=== PATIENT | male | born 1935 | race Caucasian/White ===

== ENCOUNTER 2017-02-03 13:18 | Emergency (ER) | payer OTHER, MEDICAID ==
[~2017-02-03] VITALS: Ht 177.8 cm; Wt 90.0 kg
[~2017-02-03 13:18] MED LIST: AMLO10TA2 PO; ATOR40TA16 PO; HYDR12.56 PO; IPRASOL NEB; PANT40TA3 PO; PARO1TAB72 PO; PRED20 PO; QUIN1TAB11 PO; RANI150T PO
[2017-02-03 13:23] VITALS: BP 189/84; PULSE 65; RESP 18; TEMP 97.7; O2SAT 92
--- NOTE | 2017-02-03 13:26 | PD ---
Physical Exam Time Seen by Provider: 13:25 Narrative 82 y/o male presents for evaluation after a fall this AM. He is having pain in the right side of his chest. Tripped. Pain worse with inspiration. Abrasion to (R) wrist. VSS Seen at triage desk. Awaiting bed placement. Data Data Last Documented VS Vital Signs Date Time Temp Pulse Resp B/P Pulse Ox O2 Delivery O2 Flow Rate FiO2 02/03/17 13:23 97.7 65 18 189/84 92 MDM Medical Record Reviewed: Yes Supervised Visit with MONA: Karel Abdullahi February 03, 2017 13:26
--- NOTE | 2017-02-03 14:05 | PD ---
HPI Chief Complaint: Fall Time Seen by Provider: 13:40 Travel History International Travel<30 days: No Contact w/Intl Traveler<30days: No Traveled to known affect area: No History of Present Illness HPI Patient is an 82-year-old male presenting to the emergency evaluation of right chest wall pain. Patient sustained a mechanical fall at approximately 7 AM this morning in the parking lot, he tripped over a curb in the parking space. 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 The fall was witnessed by family members, there was no head injury , loss of consciousness. Patient took 2 Tylenol earlier today however over the course of the day he's had increasing pain that is worse with deep breathing. Patient denies any back pain, abdominal pain, leg pain, arm pain, neck pain or headache. Patient is not on any blood thinners. Patient is oxygen dependent. PFSH Past Medical History Hx Anticoagulant Therapy: Yes Blood Disorders: No Depression: Yes Cancer: No High Cholesterol: Yes Congestive Heart Failure: No COPD: Yes Cerebrovascular Accident: Yes (2 CVA) Coronary Artery Disease: No Diabetes: No Diminished Hearing: Yes ([place]) Endocrine: No GERD: Yes Hypertension: Yes Immunizations Current: Yes Myocardial Infarction: Yes Pneumonia: Yes Past Surgical History Abdominal Surgery: Yes (HERNIA REPAIR) Tonsillectomy: Yes Other Surgery: Yes (CYST REMOVED FROM HIP, "NAVEL RE-ADJUSTMENT") Social History Alcohol Use: No Tobacco Use: Yes (1-2 CIGARETTES/DAY) Substance Use: No Allergies-Medications (Allergen,Severity, Reaction): Coded Allergies: No Known Allergies (Verified , 02/03/17) Reported Meds & Prescriptions Reported Meds & Active Scripts Active Duoneb (Ipratropium-Albuterol Neb) 0.5-2.5 Mg/3 Ml Neb 1 Ampule NEB Q4HR NEB PRN Prednisone 20 Mg Tab 20 Mg PO DAILY Pantoprazole (Pantoprazole Sodium) 40 Mg Tab 40 Mg PO DAILY Reported Paroxetine (Paroxetine HCl) 20 Mg Tab 20 Mg PO DAILY Hydrochlorothiazide 12.5 Mg Tab 12.5 Mg PO DAILY Quinapril (Quinapril HCl) 10 Mg Tab 10 Mg PO DAILY Atorvastatin (Atorvastatin Calcium) 40 Mg Tab 40 Mg PO HS Ranitidine (Ranitidine HCl) 150 Mg Tab 150 Mg PO BID Amlodipine (Amlodipine Besylate) 10 Mg Tab 10 Mg PO DAILY Review of Systems Except as stated in HPI: all other systems reviewed are Neg HENT: No: Headaches, Neck Pain Cardiovascular: No: Chest Pain or Discomfort Respiratory: Positive: Shortness of Breath, Pleuritic Pain Gastrointestinal: No: Nausea, Abdominal Pain Musculoskeletal: Positive: Myalgias Skin: No Change in Pigmentation Neurologic: No: Weakness, Dizziness, Syncope, Focal Abnormalities, Headache, Change in Mentation Physical Exam Narrative GENERAL: Well-developed, well-nourished, alert elderly gentleman. Resting comfortably in no acute distress. SKIN: Focused skin assessment warm/dry. HEAD: Atraumatic. Normocephalic. EYES: Pupils equal and round. No scleral icterus. No injection or drainage. ENT: No nasal bleeding or discharge. Mucous membranes pink and moist. NECK: Trachea midline. No JVD. CARDIOVASCULAR: Regular rate and rhythm. No murmur appreciated. RESPIRATORY: No accessory muscle use. Clear to auscultation. Breath sounds equal bilaterally. GASTROINTESTINAL: Abdomen soft, non-tender, nondistended. Hepatic and splenic margins not palpable. MUSCULOSKELETAL: No obvious deformities. No clubbing. No cyanosis. No edema. Mild tenderness to palpation on right anterior chest wall just below right breast. No crepitus noted. NEUROLOGICAL: Awake and alert. No obvious cranial nerve deficits. Motor grossly within normal limits. Normal speech. PSYCHIATRIC: Appropriate mood and affect; insight and judgment normal. Data Data Last Documented VS Vital Signs Date Time Temp Pulse Resp B/P Pulse Ox O2 Delivery O2 Flow Rate FiO2 02/03/17 13:40 22 Nasal Cannula 2 02/03/17 13:23 97.7 65 189/84 92 Orders Chest, Pa & Lat (02/03/17 ) [facility] Medical Decision Making Medical Screen Exam Complete: Yes Emergency Medical Condition: Yes Interpretation(s) Vital Signs Date Time Temp Pulse Resp B/P Pulse Ox O2 Delivery O2 Flow Rate FiO2 02/03/17 13:40 22 Nasal Cannula 2 02/03/17 13:23 97.7 65 18 189/84 92 Differential Diagnosis Muscle strain versus fracture versus pneumothorax versus other Narrative Course Patient is an 82-year-old male presenting to the emergency room for evaluation of right anterior chest wall pain after sustaining a mechanical fall at approximately 7 AM this morning. Patient is neurologically intact, fall was witnessed by family members, there was no head injury or loss of consciousness. Patient's vital signs are stable. Chest x-ray ordered and pending. Chest X-ray shows no acute disease. Patient will be discharged home, he will be given a short course of oral pain medications. He is encouraged to follow-up with his primary doctor, he is encouraged to engage and deep breathing exercises. He is advised to return to emergency department for any new or worsening symptoms. Patient and family members verbalized understanding of these instructions. Patient is stable for discharge. Diagnosis Primary Impression: Anterior chest wall pain Additional Impression: Fall (on)(from) sidewalk curb, initial encounter Referrals: Primary Care Physician 2 days Patient Instructions: Chest Wall Pain (GEN), General Instructions Additional Instructions: Practice deep breathing exercises Take medications as needed and as directed Follow-up with your primary doctor Return to emergency department for any new or worsening symptoms Med/Other Pt SpecificInfo: Prescription(s) given Scripts Acetaminophen-Codeine (Tylenol-Codeine #3)300-30 mg Tab1 Tab PO Q6HR PRN (PAIN) #10 TAB Ref 0 Prov:Shelli Molina MD 02/03/17 Disposition: 01 DISCHARGE HOME Condition: Stable Shashank,Dahianacammy BERG February 03, 2017 14:05
--- NOTE | 2017-02-03 14:19 | RADRPT ---
EXAM DATE/TIME: 02/03/2017 14:02 [facility] COMPARISON: CHEST SINGLE AP, September 16, 2016, 19:30. CT PULMONARY ANGIOGRAM, September 17, 2016, 2:31. INDICATIONS : Right side rib pain after falling this morning. MEDICAL HISTORY : Hypertension. Cardiovascular disease Chronic obstructive pulmonary disease. CVA. SURGICAL HISTORY : None. ENCOUNTER: Initial ACUITY: 1 day PAIN SCORE: 7/10 LOCATION: Right chest FINDINGS: PA and lateral views of the chest show lingular scarring which is stable. Lungs are clear without inf iltrate or effusion. No pneumothoraces. Heart is normal in size. Scoliotic curvature involving the th oracic spine. Visualized bony structures are unremarkable otherwise. CONCLUSION: No acute cardio pulmonary disease. Javier Alfonso Jr., MD on February 03, 2017 at 14:16 Board Certified Radiologist. This report was verified electronically.
[2017-02-03] MEDS ORDERED: TYLETAB34 PO (14:33)
== END 2017-02-03 14:58 | disposition home or self-care (01) ==
LOC: NEPD 13:18
DX: R07.89 Other chest pain (principal); H91.90 Unspecified hearing loss, unspecified ear; I10 Essential (primary) hypertension; I25.2 Old myocardial infarction; W18.09XA Striking against other object with subsequent fall, initial encounter; Y92.481 Parking lot as the place of occurrence of the external cause; Z72.0 Tobacco use; Z79.01 Long term (current) use of anticoagulants
CPT/HCPCS: 71020

== ENCOUNTER 2017-02-16 21:23 | Emergency (ER) | payer OTHER, MEDICAID ==
[~2017-02-16] VITALS: Ht 177.8 cm; Wt 100.0 kg
[~2017-02-16 21:23] MED LIST changes: +TYLETAB34 PO
[2017-02-16 21:44] VITALS: O2SAT 98
[2017-02-16] MEDS ORDERED: SODIUM CHLORIDE 0.9% FLUSH 10 ML FLUSH IVF PRN (21:45)
--- NOTE | 2017-02-16 21:57 | RADRPT ---
EXAM DATE/TIME: 02/16/2017 21:50 [facility] COMPARISON: CHEST SINGLE AP, September 16, 2016, 19:30. INDICATIONS : Chest pain. MEDICAL HISTORY : None. SURGICAL HISTORY : None. ENCOUNTER: Sequela ACUITY: 3 weeks PAIN SCORE: 7/10 LOCATION: Right chest FINDINGS: A single view of the chest demonstrates the lungs to be symmetrically aerated without evidence of mas s, infiltrate or effusion. The cardiomediastinal contours are unremarkable. Osseous structures are intact. CONCLUSION: No acute disease. Edilberto Fletcher MD on February 16, 2017 at 21:54 Board Certified Radiologist. This report was verified electronically.
--- NOTE | 2017-02-16 22:10 | PD ---
HPI Chief Complaint: Respiratory Symptoms Time Seen by Provider: 22:08 Travel History International Travel<30 days: No Contact w/Intl Traveler<30days: No Traveled to known affect area: No History of Present Illness HPI 82-year-old male that presents to the ED for evaluation of shortness of breath. Patient came here by was for abolishment this. Per patient the sepsis around 6:00 today. He has a chronic history of COPD and uses oxygen at home. He continues to smoke every day. He states that he feels a chest pressure on his chest. He denies any recent travel. He does state that he had a recent injury to his right chest after a fall. No numbness, tilling, weakness. No abdominal pain. No nausea or vomiting. States that the pain of the chest is 5 out of 10 and is pressure-like. Does not radiate. States that he use an of urine Heller today with minimal relief. He has no allergies to medication. He states having some cough and runny nose today. No fevers chills or sweats. No sick contacts as far as he knows. PFSH Past Medical History Hx Anticoagulant Therapy: Yes Blood Disorders: No Depression: Yes Cancer: No High Cholesterol: Yes Congestive Heart Failure: No COPD: Yes Cerebrovascular Accident: Yes (2 CVA) Coronary Artery Disease: No Diabetes: No Diminished Hearing: Yes [place]) Endocrine: No GERD: Yes Hypertension: Yes Immunizations Current: Yes Myocardial Infarction: Yes Pneumonia: Yes Tetanus Vaccination: Unknown Influenza Vaccination: Yes Past Surgical History Abdominal Surgery: Yes (HERNIA REPAIR) Tonsillectomy: Yes Other Surgery: Yes (CYST REMOVED FROM HIP, "NAVEL RE-ADJUSTMENT") Social History Alcohol Use: No Tobacco Use: Yes (5-6 CIGS/DAY) Substance Use: No Allergies-Medications (Allergen,Severity, Reaction): Coded Allergies: No Known Allergies (Verified , 02/16/17) Reported Meds & Prescriptions Reported Meds & Active Scripts Active Duoneb (Ipratropium-Albuterol Neb) 0.5-2.5 Mg/3 Ml Neb 1 Ampule NEB Q4HR NEB PRN Prednisone 20 Mg Tab 20 Mg PO DAILY Pantoprazole (Pantoprazole Sodium) 40 Mg Tab 40 Mg PO DAILY Reported Paroxetine (Paroxetine HCl) 20 Mg Tab 20 Mg PO DAILY Hydrochlorothiazide 12.5 Mg Tab 12.5 Mg PO DAILY Quinapril (Quinapril HCl) 10 Mg Tab 10 Mg PO DAILY Atorvastatin (Atorvastatin Calcium) 40 Mg Tab 40 Mg PO HS Ranitidine (Ranitidine HCl) 150 Mg Tab 150 Mg PO BID Amlodipine (Amlodipine Besylate) 10 Mg Tab 10 Mg PO DAILY Review of Systems Except as stated in HPI: all other systems reviewed are Neg Physical Exam Narrative GENERAL: Well-nourished, well-developed patient in no apparent distress. SKIN: Warm and dry. HEAD: Atraumatic. Normocephalic. EYES: Pupils equal and round reactive to light and accommodation. No scleral icterus. No injection or drainage. ENT: No nasal bleeding or discharge. Mucous membranes pink and moist. TMs are clear with no sign of infection or perforation. No mastoid tenderness. Ear canals are intact bilaterally. No lymphadenopathy. Nostril mucosa is red and moist with clear mucus noted. No sinus tenderness to palpation noted. Tonsils are not enlarged or swollen. No ulvua Deviation. Tongue is midline. NECK: Trachea midline. No JVD. No meningeal signs noted CARDIOVASCULAR: Regular rate and rhythm. RESPIRATORY: No accessory muscle use. Clear to auscultation. Breath sounds equal bilaterally. GASTROINTESTINAL: Abdomen soft, non-tender, nondistended. Hepatic and splenic margins not palpable. MUSCULOSKELETAL: Extremities without clubbing, cyanosis, or edema. No obvious deformities. NEUROLOGICAL: Awake and alert. No obvious cranial nerve deficits. Motor grossly within normal limits. Five out of 5 muscle strength in the arms and legs. Normal speech. PSYCHIATRIC: Appropriate mood and affect; insight and judgment normal. Data Data Last Documented VS Vital Signs Date Time Temp Pulse Resp B/P Pulse Ox O2 Delivery O2 Flow Rate FiO2 02/16/17 22:25 98 Nasal Cannula 2.00 02/16/17 21:29 74 Orders Electrocardiogram (02/16/17 21:35) Basic Metabolic Panel (Bmp) (02/16/17 21:35) B-Type Natriuretic Peptide (02/16/17 21:35) Ckmb (Isoenzyme) Profile (02/16/17 21:35) Complete Blood Count With Diff (02/16/17 21:35) Magnesium (Mg) (02/16/17 21:35) Prothrombin Time / Inr (Pt) (02/16/17 21:35) Act Partial Throm Time (Ptt) (02/16/17 21:35) Troponin I (02/16/17 21:35) Chest, Single Ap (02/16/17 21:35) Ecg Monitoring (02/16/17 21:35) Iv Access Insert/Monitor (02/16/17 21:35) Oximetry (02/16/17 21:35) Oxygen Administration (02/16/17 21:35) Sodium Chloride 0.9% Flush (Ns Flush) (02/16/17 21:45) Methylprednisolone So Succ Inj (Solumedr (02/16/17 22:15) Albuterol-Ipratropium Neb (Duoneb Neb) (02/16/17 22:30) D-Dimer (02/16/17 22:34) Labs Laboratory Tests Test 02/16/17 21:40 White Blood Count 7.2 TH/MM3 Red Blood Count 4.48 MIL/MM3 Hemoglobin 12.8 GM/DL Hematocrit 38.0 % Mean Corpuscular Volume 84.9 FL Mean Corpuscular Hemoglobin 28.5 PG Mean Corpuscular Hemoglobin 33.6 % Concent Red Cell Distribution Width 14.4 % Platelet Count 259 TH/MM3 Mean Platelet Volume 6.7 FL Neutrophils (%) (Auto) 47.7 % Lymphocytes (%) (Auto) 39.8 % Monocytes (%) (Auto) 8.3 % Eosinophils (%) (Auto) 3.5 % Basophils (%) (Auto) 0.7 % Neutrophils # (Auto) 3.4 TH/MM3 Lymphocytes # (Auto) 2.9 TH/MM3 Monocytes # (Auto) 0.6 TH/MM3 Eosinophils # (Auto) 0.3 TH/MM3 Basophils # (Auto) 0.1 TH/MM3 CBC Comment DIFF FINAL Differential Comment Prothrombin Time 10.7 SEC Prothromb Time International 1.0 RATIO Ratio Activated Partial 24.6 SEC Thromboplast Time Sodium Level 141 MEQ/L Potassium Level 4.1 MEQ/L Chloride Level 102 MEQ/L Carbon Dioxide Level 29.9 MEQ/L Anion Gap 9 MEQ/L Blood Urea Nitrogen 20 MG/DL Creatinine 1.68 MG/DL Estimat Glomerular Filtration 39 ML/MIN Rate Random Glucose 104 MG/DL Calcium Level 9.4 MG/DL Magnesium Level 2.4 MG/DL Total Creatine Kinase 77 U/L Troponin I LESS THAN 0.02 NG/ML MDM Medical Decision Making Medical Screen Exam Complete: Yes Emergency Medical Condition: Yes Medical Record Reviewed: Yes Differential Diagnosis COPD exacerbation versus shortness of breath versus dyspnea versus chest pain versus ACS Narrative Course 82-year-old male that presents to the ED for evaluation of shortness of breath. Patient was properly examined and was found to have signs and symptoms consistent appears to be possible super exacerbation with chest pain. This time I recommend labs and imaging. Labs and imaging still pending. Case will be signed out to my attending pending disposition. Sourav Tovar February 16, 2017 22:10
[2017-02-16 22:12] LABS: AUTOMATED NEUTROPHIL # 3.4 TH/MM3 (1.8-7.7); BASOPHIL # 0.1 TH/MM3 (0-0.2); BASOPHIL % 0.7 % (0.0-2.0); EOSINOPHIL # 0.3 TH/MM3 (0-0.4); EOSINOPHIL % 3.5 % (0.0-4.0); HEMO FLAGS DIFF FINAL; LYMPH % 39.8 % (9.0-44.0); LYMPHOCYTE # 2.9 TH/MM3 (1.0-4.8); MEAN CELL VOLUME 84.9 FL (80.0-100.0); MEAN CORPUSCULAR HEMOGLOBIN 28.5 PG (27.0-34.0); MEAN CORPUSCULAR HGB CONC 33.6 % (32.0-36.0); MONO % 8.3 % (0.0-8.0); NEUT % 47.7 % (16.0-70.0); PLATELET COUNT 259 TH/MM3 (150-450); RED BLOOD COUNT 4.48 MIL/MM3 (4.50-5.90); RED CELL DISTRIBUTION WIDTH 14.4 % (11.6-17.2); WHITE BLOOD COUNT 7.2 TH/MM3 (4.0-11.0)
--- NOTE | 2017-02-16 22:14 | PD ---
Physical Exam Narrative General: The patient is a well-developed well-nourished male in no acute distress. Head and Neck exam: Head is normocephalic atraumatic. Eyes: EOMI, pupils are equal round and reactive to light. Nose: Midline septum with pink mucous membranes Mouth: Dentition unremarkable. Moist mucus membranes. Posterior oropharynx is not erythematous. No tonsillar hypertrophy. Uvula midline. Airway patent. Neck: No palpable lymphadenopathy. No nuchal rigidity. No thyromegaly. Cardiovascular: Regular rate and rhythm without murmurs, gallops, or rubs. Lungs: Clear to auscultation bilaterally. No wheezes, rhonchi, or rales. Abdomen: Soft, without tenderness to palpation in all 4 quadrants of the abdomen. No guarding, rebound, or rigidity. Normal bowel sounds are audible. No tenderness on palpation of McBurney's point. Extremities: No clubbing, cyanosis, or edema. No calf tenderness on palpation. Neurologic Exam: Grossly nonfocal. Skin Exam: No rash noted. Intact skin that is warm and dry. Data Data Last Documented VS Vital Signs Date Time Temp Pulse Resp B/P Pulse Ox O2 Delivery O2 Flow Rate FiO2 02/17/17 00:06 74 20 174/83 98 Nasal Cannula 2 Orders Electrocardiogram (02/16/17 21:35) Basic Metabolic Panel (Bmp) (02/16/17 21:35) B-Type Natriuretic Peptide (02/16/17 21:35) Ckmb (Isoenzyme) Profile (02/16/17 21:35) Complete Blood Count With Diff (02/16/17 21:35) Magnesium (Mg) (02/16/17 21:35) Prothrombin Time / Inr (Pt) (02/16/17 21:35) Act Partial Throm Time (Ptt) (02/16/17 21:35) Troponin I (02/16/17 21:35) Chest, Single Ap (02/16/17 21:35) Ecg Monitoring (02/16/17 21:35) Iv Access Insert/Monitor (02/16/17 21:35) Oximetry (02/16/17 21:35) Oxygen Administration (02/16/17 21:35) Sodium Chloride 0.9% Flush (Ns Flush) (02/16/17 21:45) Methylprednisolone So Succ Inj (Solumedr (02/16/17 22:15) Albuterol-Ipratropium Neb (Duoneb Neb) (02/16/17 22:30) D-Dimer (02/16/17 22:34) Sodium Chlorid 0.9% 500 Ml Inj (Ns 500 M (02/17/17 00:00) Ct Pulmonary Angiogram (02/17/17 ) Iohexol 350 Inj (Omnipaque 350 Inj) (02/17/17 00:59) Labs Laboratory Tests Test 02/16/17 21:40 White Blood Count 7.2 TH/MM3 Red Blood Count 4.48 MIL/MM3 Hemoglobin 12.8 GM/DL Hematocrit 38.0 % Mean Corpuscular Volume 84.9 FL Mean Corpuscular Hemoglobin 28.5 PG Mean Corpuscular Hemoglobin 33.6 % Concent Red Cell Distribution Width 14.4 % Platelet Count 259 TH/MM3 Mean Platelet Volume 6.7 FL Neutrophils (%) (Auto) 47.7 % Lymphocytes (%) (Auto) 39.8 % Monocytes (%) (Auto) 8.3 % Eosinophils (%) (Auto) 3.5 % Basophils (%) (Auto) 0.7 % Neutrophils # (Auto) 3.4 TH/MM3 Lymphocytes # (Auto) 2.9 TH/MM3 Monocytes # (Auto) 0.6 TH/MM3 Eosinophils # (Auto) 0.3 TH/MM3 Basophils # (Auto) 0.1 TH/MM3 CBC Comment DIFF FINAL Differential Comment Prothrombin Time 10.7 SEC Prothromb Time International 1.0 RATIO Ratio Activated Partial 24.6 SEC Thromboplast Time D-Dimer Quantitative (PE/DVT) 1.44 MG/L FEU Sodium Level 141 MEQ/L Potassium Level 4.1 MEQ/L Chloride Level 102 MEQ/L Carbon Dioxide Level 29.9 MEQ/L Anion Gap 9 MEQ/L Blood Urea Nitrogen 20 MG/DL Creatinine 1.68 MG/DL Estimat Glomerular Filtration 39 ML/MIN Rate Random Glucose 104 MG/DL Calcium Level 9.4 MG/DL Magnesium Level 2.4 MG/DL Total Creatine Kinase 77 U/L Troponin I LESS THAN 0.02 NG/ML B-Type Natriuretic Peptide 52 PG/ML [facility] Medical Record Reviewed: Yes Supervised Visit with MONA: Yes Interpretation(s) Last Impressions Chest X-Ray 02/16/172134 Signed Impressions: Service Date/Time: Thursday, February 16, 2017 21:50 - CONCLUSION: No acute disease. Edilberto Fletcher MD Narrative Course I, Dr. Rodrigez, have reviewed the advance practice practitioner's documentation and am in agreement, met with the patient face to face, made the diagnosis, and the medical decision making was done by me. The patient was initially seen by Evelio. Please see his complete history and physical. *My assessment and Findings: The patient is an 82-year-old male who presents to [place] with a history of shortness of breath and prior history of COPD with continued tobacco use. The patient was initially evaluated by the physician respiratory care assistant. The patient was noted on examination a have expiratory wheezes audible. Chest x-ray was done. Laboratory studies were ordered. During the course of the patients emergency department visit, the patients history, examination, and differential diagnosis were reviewed with the patient. The patient had IV access obtained and blood work sent for analysis. The patient was initially provided DuoNeb 1, Solu-Medrol 125 mg IV. The patients laboratory studies were reviewed and remarkable for a white count of 7.2, hemoglobin 12.8, platelets 259 with 8.3 monocytes, basic metabolic profile is remarkable for a BUN of 20, creatinine 1.68, CPK 77, troponin I less than 0.02, BNP 52. The patient was given a normal saline 500 mL bolus 1. PT 10.7, PTT 24.6, d-dimer 1.44. CTA to rule out PE was ordered. Radiology studies were reviewed and remarkable for a chest x-ray that showed no acute abnormality. CTA to rule out PE showed evidence of mild underlying emphysema, mild scarring, no evidence of pulmonary embolism. The patient on examination was feeling improved. The patient has albuterol solution for his nebulizer machine at home. He also has when necessary nasal cannula O2 at home. The patient will be sent home with a prescription for doxycycline for bronchitis. The patient was given a Medrol Dosepak taper. The patient was encouraged to quit smoking. The patient reports that he has a follow-up appointment rescheduled with his primary care physician, Dr. Best, for Thursday. The patient is resting comfortably and feels better, is alert and in no distress. The patients results and examination findings were discussed with the patient. The repeat examination is unremarkable and benign. The history, exam, diagnostic testing, and current condition do not suggest any significant pathology to warrant further testing, continued ED treatment, admission, or surgical evaluation at this point. The vital signs have been stable. The patient does not have uncontrollable pain, intractable vomiting, or other significant symptoms. The patient's condition is stable and appropriate for discharge. The patient will pursue further outpatient evaluation with a primary care physician or other designated or consulting physician as indicated in the discharge instructions. The patient expressed understanding and was agreeable with this plan. Diagnosis Primary Impression: COPD exacerbation Additional Impression: Bronchitis Referrals: Primary Care Physician 2 days Patient Instructions: Acute Bronchitis (ED), COPD (Chronic Obstructive Pulmonary Disease) (ED), General Instructions Med/Other Pt SpecificInfo: Prescription(s) given Scripts Methylprednisolone Dosepak (Medrol Dosepak)4 Mg Dspk4 Mg PO DIRECTED #1 DSPK Ref 0 Per Pharmacist direction Prov:Bibi Rodrigez MD 02/17/17 Doxycycline Hyclate 100 Mg Evd136 Mg PO BID #20 CAP Ref 0 Prov:Bibi Rodrigez MD 02/17/17 Disposition: 01 DISCHARGE HOME Condition: Stable Bibi Rodrigez MD February 16, 2017 22:14
[2017-02-16] MEDS ORDERED: methylPREDNISolone SOD SUCC 125 MG/2 ML VIAL IV PUSH ONE (22:15)
[2017-02-16 22:25] VITALS: O2SAT 98
[2017-02-16 22:30] LABS: APTT (PATIENT) 24.6 SEC (24.3-30.1); PROTHROMBIN TIME - PATIENT 10.7 SEC (9.8-11.6)
[2017-02-16] MEDS ORDERED: RESP: ALBUTEROL 2.5 MG/IPRATROPIUM 0.5 MG NEB (SCH) INH ONE (22:30)
[2017-02-16 22:35] LABS: ANION GAP 9 MEQ/L (5-15); BICARBONATE 29.9 MEQ/L (21.0-32.0); BLOOD UREA NITROGEN 20 MG/DL (7-18); CHLORIDE 102 MEQ/L (98-107); GLOMERULAR FILTRATION RATE 39 ML/MIN (>89); MAGNESIUM 2.4 MG/DL (1.5-2.5); POTASSIUM 4.1 MEQ/L (3.5-5.1); SODIUM (NA) 141 MEQ/L (136-145)
[2017-02-16 22:42] LABS: CREATINE KINASE 77 U/L (39-308)
[2017-02-17] MEDS ORDERED: SODIUM CHLORID 0.9% 500 ML INJ 500 ML IV ONE
[2017-02-17 00:06] VITALS: BP 174/83; PULSE 74; RESP 20; O2SAT 98
[2017-02-17] MEDS ORDERED: IOHEXOL 350 MG/ML 10 ML VIAL (for RAD DIAG) IV ONE (00:59)
--- NOTE | 2017-02-17 01:14 | RADRPT ---
EXAM DATE/TIME: 02/17/2017 00:58 [facility] COMPARISON: CT PULMONARY ANGIOGRAM, September 17, 2016, 2:31. INDICATIONS : Chest pain with shortness of breath. IV CONTRAST: 75 cc Omnipaque 350 (iohexol) IV RADIATION DOSE: 23.41 CTDIvol (mGy) MEDICAL HISTORY : Cardiovascular disease. Hypertension. Chronic obstructive pulmonary disease.GERD SURGICAL HISTORY : Hernia ENCOUNTER: Initial ACUITY: 1 day PAIN SCALE: 6/10 LOCATION: Bilateral chest TECHNIQUE: Volumetric scanning of the chest was performed using a pulmonary embolism protocol MIP images were re constructed. Using automated exposure control and adjustment of the mA and/or kV according to patien t size, radiation dose was kept as low as reasonably achievable to obtain optimal diagnostic quality images. FINDINGS: PULMONARY ARTERIES: No filling defects are seen in the pulmonary arteries through the segmental level. LUNGS: There is no consolidation or pneumothorax . No concerning pulmonary nodule is visualized. Underlying emphysema is again noted. There is mild scarring greatest at the lung bases. PLEURAE: There is no pleural thickening or pleural effusion. MEDIASTINUM: There is good visualization of the great vessels of the middle mediastinum. No evidence of mediastin al or hilar adenopathy/mass. MUSCULOSKELETAL: Within normal limits for patient age. MISCELLANEOUS: The visualized upper abdominal organs demonstrate no acute abnormality. CONCLUSION: 1. Mild underlying emphysema. Mild scarring. 2. No evidence of pulmonary embolism. Jose Sheehan MD on February 17, 2017 at 1:10 Board Certified Radiologist. This report was verified electronically.
[2017-02-17] MEDS ORDERED: DOXY100C PO (01:26)
[2017-02-17] MEDS ORDERED: MEDR4PAK PO (01:26)
--- NOTE | 2017-02-17 14:37 | EKG ---
Date Performed: 02/16/2017 Time Performed: 21:32:03 PTAGE: 82 years EKG: Sinus rhythm RIGHT BUNDLE BRANCH BLOCK Since previous tracing, no significant change noted ABNORMAL ECG PREVIOUS TRACING : 09/17/2016 06.48 DOCTOR: Rufino Castro Interpretating Date/Time 02/17/2017 14:35:50
== END 2017-02-17 02:11 | disposition home or self-care (01) ==
LOC: NEPE 21:23
DX: J44.1 Chronic obstructive pulmonary disease with (acute) exacerbation (principal); J40 Bronchitis, not specified as acute or chronic; I10 Essential (primary) hypertension; I25.2 Old myocardial infarction; Z72.0 Tobacco use; Z86.73 Personal history of transient ischemic attack (TIA), and cerebral infarction without residual deficits
CPT/HCPCS: 71010; 71275; 80048; 82550; 83735; 83880; 84484; 85025; 85379; 85610; 85730; 93005; 94664; 96361; 96374; 99284; J2930; J7040; Q9967

== ENCOUNTER 2017-06-18 19:58 | Emergency (ER) | payer OTHER, MEDICAID ==
[~2017-06-18] VITALS: Ht 182.9 cm; Wt 93.0 kg
[~2017-06-18 19:58] MED LIST changes: +DOXY100C PO; +MEDR4PAK PO; -TYLETAB34 PO
[2017-06-18 20:19] VITALS: BP 152/75; PULSE 50; RESP 19; TEMP 98.5; O2SAT 99
[2017-06-18] MEDS ORDERED: ACCU10TA2 PO (20:29)
[2017-06-18] MEDS ORDERED: ASPIRIN 81 MG CHEW TAB PO ONE (20:45)
[2017-06-18] MEDS ORDERED: SODIUM CHLORIDE 0.9% FLUSH 10 ML FLUSH IVF PRN (20:45)
[2017-06-18] MEDS ORDERED: RESP: ALBUTEROL 2.5 MG/IPRATROPIUM 0.5 MG NEB (SCH) NEB ONE (20:45)
--- NOTE | 2017-06-18 21:06 | RADRPT ---
EXAM DATE/TIME: 06/18/2017 20:54 [facility] COMPARISON: CHEST SINGLE AP, February 16, 2017, 21:50. INDICATIONS : Chest pain. MEDICAL HISTORY : Cardiovascular disease. Hypertension. Chronic obstructive pulmonary disease.GERD. SURGICAL HISTORY : Hernia repair. ENCOUNTER: Initial ACUITY: 1 day PAIN SCORE: 3/10 LOCATION: Bilateral chest FINDINGS: A single view of the chest demonstrates the lungs to be symmetrically aerated without evidence of mas s, infiltrate or effusion. The cardiomediastinal contours are unremarkable. Osseous structures are intact. CONCLUSION: No evidence of acute cardiopulmonary disease. Mook Mcclellan MD on June 18, 2017 at 21:04 Board Certified Radiologist. This report was verified electronically.
[2017-06-18 21:13] LABS: AUTOMATED NEUTROPHIL # 6.1 TH/MM3 (1.8-7.7); BASOPHIL % 0.2 % (0.0-2.0); EOSINOPHIL # 0.3 TH/MM3 (0-0.4); EOSINOPHIL % 3.2 % (0.0-4.0); HEMATOCRIT 37.1 % (39.0-51.0); HEMO FLAGS DIFF FINAL; LYMPH % 19.5 % (9.0-44.0); LYMPHOCYTE # 1.7 TH/MM3 (1.0-4.8); MEAN CELL VOLUME 86.2 FL (80.0-100.0); MEAN CORPUSCULAR HEMOGLOBIN 29.1 PG (27.0-34.0); MEAN CORPUSCULAR HGB CONC 33.8 % (32.0-36.0); MONO % 8.4 % (0.0-8.0); NEUT % 68.7 % (16.0-70.0); PLATELET COUNT 202 TH/MM3 (150-450); WHITE BLOOD COUNT 8.9 TH/MM3 (4.0-11.0)
--- NOTE | 2017-06-18 21:22 | PD ---
HPI Chief Complaint: Chest Pain Time Seen by Provider: 20:24 Travel History International Travel<30 days: No Contact w/Intl Traveler<30days: No Traveled to known affect area: No History of Present Illness HPI Patient is 82-year-old male presents emergency department for evaluation of chest pain fairly atypical. His chief complaint is actually that he's been belching a lot. He is also been having some shortness of breath but has a history of chronic COPD is on oxygen at home. According to his and daughter the patient recently went to [place] and had been sick and there was some cough and congestion and then came home and was slightly worse. States he does have a heart history but has not had a stress test recently. Followed by Dr. Foss. No history of fever, no hemoptysis no sputum production no abdominal pain no nausea vomiting. Symptoms for greater than a week. PFSH Past Medical History Hx Anticoagulant Therapy: Yes Blood Disorders: No Depression: Yes Cancer: No Cardiac Catheterization: Yes (2006) High Cholesterol: Yes Congestive Heart Failure: No COPD: Yes Cerebrovascular Accident: Yes (2 CVA) Coronary Artery Disease: No Diabetes: No Diminished Hearing: Yes ([place]) Endocrine: No GERD: Yes Hypertension: Yes Immunizations Current: Yes Myocardial Infarction: Yes (X2) Pneumonia: Yes Tetanus Vaccination: Unknown Past Surgical History Abdominal Surgery: Yes (HERNIA REPAIR) Tonsillectomy: Yes Other Surgery: Yes (CYST REMOVED FROM HIP, "NAVEL RE-ADJUSTMENT") Social History Alcohol Use: No Tobacco Use: Yes (5-6 CIGS/DAY) Substance Use: No Allergies-Medications (Allergen,Severity, Reaction): Coded Allergies: No Known Allergies (Verified , 06/18/17) Reported Meds & Prescriptions Reported Meds & Active Scripts Active Medrol Dosepak (Methylprednisolone) 4 Mg Dspk 4 Mg PO DIRECTED Per Pharmacist direction Duoneb (Ipratropium-Albuterol Neb) 0.5-2.5 Mg/3 Ml Neb 1 Ampule NEB Q4HR NEB PRN Prednisone 20 Mg Tab 20 Mg PO DAILY Pantoprazole (Pantoprazole Sodium) 40 Mg Tab 40 Mg PO DAILY Reported Accupril (Quinapril HCl) 10 Mg Tab 10 Mg PO BID Paroxetine (Paroxetine HCl) 20 Mg Tab 20 Mg PO DAILY Hydrochlorothiazide 12.5 Mg Tab 12.5 Mg PO DAILY Atorvastatin (Atorvastatin Calcium) 40 Mg Tab 40 Mg PO HS Ranitidine (Ranitidine HCl) 150 Mg Tab 150 Mg PO BID Amlodipine (Amlodipine Besylate) 10 Mg Tab 10 Mg PO DAILY Review of Systems Except as stated in HPI: all other systems reviewed are Neg Physical Exam Narrative GENERAL: Well-developed well-nourished, elderly male in no obvious distress. SKIN: Focused skin assessment warm/dry. HEAD: Atraumatic. Normocephalic. EYES: Pupils equal and round. No scleral icterus. No injection or drainage. ENT: No nasal bleeding or discharge. Mucous membranes pink and moist. NECK: Trachea midline. No JVD. CARDIOVASCULAR: Regular rate and rhythm. No murmur appreciated. No murmurs gallops or rubs. RESPIRATORY: No accessory muscle use. Clear to auscultation. Breath sounds equal bilaterally. GASTROINTESTINAL: Abdomen soft, non-tender, nondistended. Hepatic and splenic margins not palpable. MUSCULOSKELETAL: No obvious deformities. No clubbing. No cyanosis. No edema. NEUROLOGICAL: Awake and alert. No obvious cranial nerve deficits. Motor grossly within normal limits. Normal speech. PSYCHIATRIC: Appropriate mood and affect; insight and judgment normal. Data Data Last Documented VS Vital Signs Date Time Temp Pulse Resp B/P (MAP) Pulse Ox O2 Delivery O2 Flow Rate FiO2 06/18/17 21:30 98 Nasal Cannula 4.00 06/18/17 20:30 54 19 06/18/17 20:19 98.5 152/75 (100) Orders Orders Electrocardiogram (06/18/17 20:31) Ckmb (Isoenzyme) Profile (06/18/17 20:31) Complete Blood Count With Diff (06/18/17 20:31) Comprehensive Metabolic Panel (06/18/17 20:31) Magnesium (Mg) (06/18/17 20:31) Prothrombin Time / Inr (Pt) (06/18/17 20:31) Act Partial Throm Time (Ptt) (06/18/17 20:31) Troponin I (06/18/17 20:31) Chest, Single Ap (06/18/17 20:31) Ecg Monitoring (06/18/17 20:31) Iv Access Insert/Monitor (06/18/17 20:31) Oximetry (06/18/17 20:31) Oxygen Administration (06/18/17 20:31) Aspirin Chew (Aspirin Chew) (06/18/17 20:45) Sodium Chloride 0.9% Flush (Ns Flush) (06/18/17 20:45) Albuterol-Ipratropium Neb (Duoneb Neb) (06/18/17 20:45) Ct Pulmonary Angiogram (06/18/17 ) Iodixanol 320 Inj (Rad Ct) (Visipaque 32 (06/18/17 22:21) Labs Laboratory Tests Test 06/18/17 20:40 White Blood Count 8.9 TH/MM3 Red Blood Count 4.30 MIL/MM3 Hemoglobin 12.5 GM/DL Hematocrit 37.1 % Mean Corpuscular Volume 86.2 FL Mean Corpuscular Hemoglobin 29.1 PG Mean Corpuscular Hemoglobin Concent 33.8 % Red Cell Distribution Width 14.0 % Platelet Count 202 TH/MM3 Mean Platelet Volume 6.9 FL Neutrophils (%) (Auto) 68.7 % Lymphocytes (%) (Auto) 19.5 % Monocytes (%) (Auto) 8.4 % Eosinophils (%) (Auto) 3.2 % Basophils (%) (Auto) 0.2 % Neutrophils # (Auto) 6.1 TH/MM3 Lymphocytes # (Auto) 1.7 TH/MM3 Monocytes # (Auto) 0.7 TH/MM3 Eosinophils # (Auto) 0.3 TH/MM3 Basophils # (Auto) 0.0 TH/MM3 CBC Comment DIFF FINAL Differential Comment Prothrombin Time 10.1 SEC Prothromb Time International Ratio 0.9 RATIO Activated Partial Thromboplast Time 19.0 SEC Blood Urea Nitrogen 40 MG/DL Creatinine 1.80 MG/DL Random Glucose 100 MG/DL Total Protein 5.8 GM/DL Albumin 3.1 GM/DL Calcium Level 8.9 MG/DL Magnesium Level 2.3 MG/DL Alkaline Phosphatase 81 U/L Aspartate Amino Transf (AST/SGOT) 31 U/L Alanine Aminotransferase (ALT/SGPT) 43 U/L Total Bilirubin 0.3 MG/DL Sodium Level 139 MEQ/L Potassium Level 4.1 MEQ/L Chloride Level 102 MEQ/L Carbon Dioxide Level 30.0 MEQ/L Anion Gap 7 MEQ/L Estimat Glomerular Filtration Rate 36 ML/MIN Total Creatine Kinase 56 U/L Troponin I 0.02 NG/ML MDM Medical Decision Making Medical Screen Exam Complete: Yes Emergency Medical Condition: Yes Differential Diagnosis ACS seems unlikely, reflux, belching, PE, pneumonia, COPD exacerbation Narrative Course patient roomed in emergency department, he appears well in no distress. He states that the pain worsens when he lies on his left side and that the belching is worse when he is on his left side. Initial workup shows a minimal elevation in creatinine to 1.8 which is slightly above his baseline, troponin negative, EKG is nonischemic. CT PE protocol negative. Discussed with the patient that he is highly atypical for ACS but cannot completely exclude coronary artery disease this time given his age and risk factors. I had suggested that he stay for a stress test that he would like to go home and follow-up with his primary care physician Dr. Best. He states he has an appointment later this month but if he called Dr. Dodson he's pretty sure he get in tomorrow and see her. At this time I think this is reasonable. Discussed with him return to ED criteria symptomatic management home. Diagnosis Primary Impression: Chest pain Disposition: 01 DISCHARGE HOME Condition: Stable Wade Odell MD Jun 18, 2017 21:22
[2017-06-18 21:30] VITALS: O2SAT 98
[2017-06-18 21:33] LABS: INTERNATIONAL NORMALIZED RATIO 0.9 RATIO; PROTHROMBIN TIME - PATIENT 10.1 SEC (9.8-11.6)
[2017-06-18 21:41] LABS: ANION GAP 7 MEQ/L (5-15); AST (GOT) 31 U/L (15-37); BLOOD UREA NITROGEN 40 MG/DL (7-18); CHLORIDE 102 MEQ/L (98-107); GLOMERULAR FILTRATION RATE 36 ML/MIN (>89); MAGNESIUM 2.3 MG/DL (1.5-2.5); POTASSIUM 4.1 MEQ/L (3.5-5.1); SODIUM (NA) 139 MEQ/L (136-145)
[2017-06-18 21:44] LABS: ALKALINE PHOSPHATASE 81 U/L (45-117); ALT (GPT) 43 U/L (12-78); TOTAL BILIRUBIN ADULT 0.3 MG/DL (0.2-1.0)
[2017-06-18 21:46] LABS: CREATINE KINASE 56 U/L (39-308)
[2017-06-18] MEDS ORDERED: IODIXANOL 320 MG/ML 10 ML VIAL (for Rad CT) IV ONE (22:21)
--- NOTE | 2017-06-18 22:55 | RADRPT ---
EXAM DATE/TIME: 06/18/2017 22:21 [facility] COMPARISON: CT PULMONARY ANGIOGRAM, February 17, 2017, 0:58. INDICATIONS : Chest pain. IV CONTRAST: 50 cc Visipaque (iodixanol) IV RADIATION DOSE: 12.03 CTDIvol (mGy) MEDICAL HISTORY : Hypertension. Chronic obstructive pulmonary disease. SURGICAL HISTORY : Cardiac catheterization ENCOUNTER: Initial ACUITY: 1 day PAIN SCALE: 5/10 LOCATION: chest TECHNIQUE: Volumetric scanning of the chest was performed using a pulmonary embolism protocol MIP images were re constructed. Using automated exposure control and adjustment of the mA and/or kV according to patien t size, radiation dose was kept as low as reasonably achievable to obtain optimal diagnostic quality images. DICOM format image data is available electronically for review and comparison. Follow-up recommendations for detected pulmonary nodules are based at a minimum on nodule size and pa tient risk factors according to Fleischner Society Guidelines. FINDINGS: There is no pulmonary embolus. Mild emphysema and trace atelectasis of the bases. No pleural effusion or pneumothorax. Left ventricular hypertrophy again noted. There is coronary artery calcification, most conspicuous of the left anterior descending and left circumflex. No pericardial effusion. No adenopathy. CONCLUSION: 1. No pulmonary embolus. 2. Trace bibasilar atelectasis. 3. Coronary artery calcification. 4. Mild emphysema. Mook Mcclellan MD on June 18, 2017 at 22:52 Board Certified Radiologist. This report was verified electronically.
--- NOTE | 2017-06-19 11:37 | EKG ---
Date Performed: 06/18/2017 Time Performed: 20:22:06 PTAGE: 82 years EKG: Sinus rhythm RIGHT BUNDLE BRANCH BLOCK ABNORMAL ECG Compared to prior tracing no significant change PREVIOUS TRACING : 02/16/2017 21.32 DOCTOR: Ronal Rodrigez Interpretating Date/Time 06/19/2017 11:35:47
== END 2017-06-19 04:24 | disposition home or self-care (01) ==
LOC: NEPC 19:58
DX: R07.9 Chest pain, unspecified (principal); J44.9 Chronic obstructive pulmonary disease, unspecified; I10 Essential (primary) hypertension; I25.2 Old myocardial infarction; K21.9 Gastro-esophageal reflux disease without esophagitis; F17.210 Nicotine dependence, cigarettes, uncomplicated; Z99.81 Dependence on supplemental oxygen; Z86.73 Personal history of transient ischemic attack (TIA), and cerebral infarction without residual deficits; I45.10 Unspecified right bundle-branch block; Z79.01 Long term (current) use of anticoagulants
CPT/HCPCS: 71010; 71275; 80053; 82550; 83735; 84484; 85025; 85610; 85730; 93005; 94664; 99285; Q9967

== ENCOUNTER 2017-10-30 12:35 | Emergency (ER) | payer OTHER, MEDICAID ==
[~2017-10-30 12:35] MED LIST changes: +ACCU10TA2 PO; -DOXY100C PO; -PARO1TAB72 PO; +PARO20TA3 PO; -QUIN1TAB11 PO
[2017-10-30 12:36] VITALS: BP 180/77; PULSE 80; RESP 16; TEMP 98.6; O2SAT 97
[2017-10-30] MEDS ORDERED: AMOX875T PO (15:10)
[2017-10-30] MEDS ORDERED: OFLO0.3D9 EACH EAR (15:10)
--- NOTE | 2017-10-30 15:20 | PD ---
HPI Chief Complaint: ENT Complaint Time Seen by Provider: 14:46 Travel History International Travel<30 days: No Contact w/Intl Traveler<30days: No Traveled to known affect area: No History of Present Illness HPI 82-year-old male that presents to the ED for elevation of hearing loss as well as ear pain. Per patient and around October 16 he was evaluated by his doctor who saw the patient had ear infection and had his ears irrigated and had drops put in. Patient has been loosing his hearing since. Patient does have poor hearing before this. Per patient about 5 days later he started developing some drainage from both years and they contacted the primary care doctor Dr. Best who ordered some corticosporin drops for the patient. He has been applying the drops with some improvement of the discharge but he continues to have the hearing loss which is what concerned the family member. They attempted to contact the PCP today and they told him that he could get referred to ENT. ENT will not see him for a month. Family got concerned and they sent him here for evaluation. Patient voices some discomfort on his left ear as well as his right. Most of the hearing loss appears to be on the left. Per patient he comes and goes. He does have to use headphones now to help him here secondary to his hearing loss. He states that the discharge is mostly on the left. But he also has discomfort to the right. Per patient the pain is 4 out of 10 but comes and goes. No pain otherwise. No congestion. No fevers chills or sweats. PFSH Past Medical History Hx Anticoagulant Therapy: Yes Blood Disorders: No Depression: Yes Cancer: No Cardiac Catheterization: Yes (2006) High Cholesterol: Yes Congestive Heart Failure: No COPD: Yes Cerebrovascular Accident: Yes (2 CVA) Coronary Artery Disease: No Diabetes: No Diminished Hearing: Yes ([place]) Endocrine: No GERD: Yes Hypertension: Yes Immunizations Current: Yes Myocardial Infarction: Yes (X2) Pneumonia: Yes Past Surgical History Abdominal Surgery: Yes (HERNIA REPAIR) Tonsillectomy: Yes Other Surgery: Yes (CYST REMOVED FROM HIP, "NAVEL RE-ADJUSTMENT") Social History Alcohol Use: No Tobacco Use: Yes (5-6 CIGS/DAY) Substance Use: No Allergies-Medications (Allergen,Severity, Reaction): Coded Allergies: No Known Allergies (Verified , 06/18/17) Reported Meds & Prescriptions Reported Meds & Active Scripts Active Amoxicillin 875 Mg Tab 875 Mg PO BID 10 Days Ofloxacin Otic Drops 0.3 % Drops 5 Drop EACH EAR DAILY Medrol Dosepak (Methylprednisolone) 4 Mg Dspk 4 Mg PO DIRECTED Per Pharmacist direction Duoneb (Ipratropium-Albuterol Neb) 0.5-2.5 Mg/3 Ml Neb 1 Ampule NEB Q4HR NEB PRN Prednisone 20 Mg Tab 20 Mg PO DAILY Pantoprazole (Pantoprazole Sodium) 40 Mg Tab 40 Mg PO DAILY Reported Accupril (Quinapril HCl) 10 Mg Tab 10 Mg PO BID Paroxetine (Paroxetine HCl) 20 Mg Tab 20 Mg PO DAILY Hydrochlorothiazide 12.5 Mg Tab 12.5 Mg PO DAILY Atorvastatin (Atorvastatin Calcium) 40 Mg Tab 40 Mg PO HS Ranitidine (Ranitidine HCl) 150 Mg Tab 150 Mg PO BID Amlodipine (Amlodipine Besylate) 10 Mg Tab 10 Mg PO DAILY Review of Systems Except as stated in HPI: all other systems reviewed are Neg Physical Exam Narrative GENERAL: SKIN: Warm and dry. HEAD: Atraumatic. Normocephalic. EYES: Pupils equal and round. No scleral icterus. No injection or drainage. ENT: No nasal bleeding or discharge. Mucous membranes pink and moist. Tongue is midline. No uvula deviation. Right TM is slightly red and bulging. Left TM is slightly erythematous but not bulging. There is some exudates noted on the left ear but also not on the right more noticeable on the left. No ear canal swelling. No obvious perforation noted on the right or the left but there is some exudates on the left adnexa it hard to see whether there is actual perforation. No mastoid tenderness bilaterally. No lymphadenopathy bilaterally. NECK: Trachea midline. No JVD. CARDIOVASCULAR: Regular rate and rhythm. No murmurs, S3, S4. RESPIRATORY: No accessory muscle use. Clear to auscultation. Breath sounds equal bilaterally. GASTROINTESTINAL: Abdomen soft, non-tender, nondistended. Hepatic and splenic margins not palpable. MUSCULOSKELETAL: Extremities without clubbing, cyanosis, or edema. No obvious deformities. Full range of motion of the upper and lower extremities bilaterally. 2+ pulses bilaterally. NEUROLOGICAL: Awake and alert. No obvious cranial nerve deficits. Motor grossly within normal limits. Five out of 5 muscle strength in the arms and legs. Normal speech. PSYCHIATRIC: Appropriate mood and affect; insight and judgment normal. Data Data Last Documented VS Vital Signs Date Time Temp Pulse Resp B/P (MAP) Pulse Ox O2 Delivery O2 Flow Rate FiO2 10/30/17 12:36 98.6 80 16 180/77 (111) 97 Nasal Cannula 2.00 Orders Orders Ed Discharge Order (10/30/17 15:10) MDM Medical Decision Making Medical Screen Exam Complete: Yes Emergency Medical Condition: Yes Medical Record Reviewed: Yes Differential Diagnosis Otitis media versus otitis externa versus hearing loss Narrative Course 82-year-old male that presents to the ED for evaluation of possible ear infections and hearing loss. Patient was properly examined and was found to have signs and symptoms which appear to be consistent with possibly otitis media and externa. Likely hearing loss secondary to this. No sign of perforated eardrum but is somewhat hard to visualize the left eardrum secondary to the exudates on the tympanic membrane itself. At this time I recommend changing the drops ofloxacin otic to cover for possible perforated eardrums as well as to cover for pseudomonas causing infection. Patient does appear to have a otitis media and will be started amoxicillin for this. Family and patient agree with this. I do recommend that the patient continues follow-up with ENT as he does appear to have some underlying hearing loss already and likely will benefit from ENT evaluation for possible auditory help. Patient and family agree with this. See ED if worst. Follow up with PCP. Diagnosis Primary Impression: Otitis media Qualified Codes: H65.03 - Acute serous otitis media, bilateral Additional Impression: Otitis externa of both ears Qualified Codes: H60.503 - Unspecified acute noninfective otitis externa, bilateral Patient Instructions: General Instructions Additional Instructions: Take medications as prescribed. Follow with PCP. See ED for worsening symptoms. Follow with ENT Med/Other Pt SpecificInfo: Prescription(s) given Scripts Amoxicillin (Amoxicillin) 875 Mg Tab 875 MG PO BID for Infection for 10 Days, #20 TAB 0 Refills Prov: Cele aRtliff DO 10/30/17 Ofloxacin Otic Drops (Ofloxacin Otic Drops) 0.3 % Drops 5 DROP EACH EAR DAILY for Infection, #1 BOTTLE 0 Refills Prov: Cele Ratliff DO 10/30/17 Disposition: 01 DISCHARGE HOME Condition: Stable Sourav Tovar Oct 30, 2017 15:20
== END 2017-10-30 15:44 | disposition home or self-care (01) ==
LOC: NEPE 12:35
DX: H66.93 Otitis media, unspecified, bilateral (principal); H60.93 Unspecified otitis externa, bilateral; F32.9 Major depressive disorder, single episode, unspecified; E78.00 Pure hypercholesterolemia, unspecified; J44.9 Chronic obstructive pulmonary disease, unspecified; K21.9 Gastro-esophageal reflux disease without esophagitis; I10 Essential (primary) hypertension; F17.210 Nicotine dependence, cigarettes, uncomplicated; Z86.73 Personal history of transient ischemic attack (TIA), and cerebral infarction without residual deficits
CPT/HCPCS: 99283

== ENCOUNTER → 2017-12-17 | Day surgery (SDC) | payer OTHER ==
[~2017-12-17] VITALS: Ht 177.8 cm; Wt 92.4 kg
[~2017-12-17] MED LIST changes: +ACETAMINOPHEN/HYDROcodone 325 MG/7.5 MG TAB PO PRN; +ALBU6.7H INH; +AMOX875T PO; +ASPI-516 CHEW; +CHLORHEXIDINE GLUCONATE 2 % 1 PACK (2 CLOTHS) TOPICAL PRN; +DO NOT ADM ANY ANTICOAGULANT DRUGS PRN; +LACTATED RINGER'S 1000 ML IV PRN; +LIDOCAINE HCL 1% PF 5 ML SYRINGE OTHER ONE; +METOPROLOL TARTRATE 25 MG TAB PO PRN; +MORPHINE SULFATE 2 MG/ML INJ IV PUSH PRN; +OFLO0.3D9 EACH EAR; +OFLOXACIN 0.3% OPTH SOLN 5 ML BTL ONE; +ONDANSETRON HCL 4 MG/2 ML VIAL IV PUSH PRN; +POVIDONE IODINE 5% (ANTISEPSIS KIT) 4 APPLICATIONS EACH NARE PRN; +PROPOFOL 200 MG/20 ML AMP IV ONE; +SODIUM CHLORID 0.9% 500 ML IV PRN; +SYMB160A INH
[2017-12-17 08:48] VITALS: BP 162/77; PULSE 63; RESP 22; TEMP 97.9; O2SAT 99
--- NOTE | 2017-12-17 09:08 | MP ---
cc: Jose Casas MD DATE OF OPERATION: 12/17/2017 DATE OF OPERATION: 12/17/2017 PREOPERATIVE DIAGNOSIS: Chronic otitis media. PROCEDURE PERFORMED: Bilateral myringotomy and tube placement. ANESTHESIA: General. ESTIMATED BLOOD LOSS: Minimal. COMPLICATIONS: None. OPERATING SURGEON: Jose Casas MD DESCRIPTION OF OPERATION: Prepped and draped in usual fashion. Anterior inferior radial myringotomy incision made under microscopic visualization. Fluid suctioned from middle ear cavity. Tympanostomy T-tube placed in good position, along with ofloxacin. Similar fashion opposite side. Anterior inferior radial myringotomy incision made. Fluid suctioned from middle ear cavity. Tympanostomy T-tube placed in good position, along with ofloxacin. Patient tolerated procedure well. MD SHELLEY Hernandez/KD , 08:59 AM , 09:06 AM
--- NOTE | 2017-12-17 09:51 | MH ---
cc: Jose Casas MD DATE OF ADMISSION: 12/17/2017 An 82-year-old with chronic otitis media, for bilateral myringotomy and tube placement. PAST MEDICAL HISTORY: Notable for COPD. REVIEW OF SYSTEMS: Unremarkable. PAST SURGICAL HISTORY: Unremarkable. MEDICATIONS: In chart. NO KNOWN DRUG ALLERGIES. PHYSICAL EXAMINATION: Well-appearing patient, no acute distress noted. HEENT: Reveals bilateral fluid behind each eardrum. Nasal, oral and neck are clear. LUNGS: Clear. HEART: Regular rate and rhythm. ABDOMEN: Soft and nontender. EXTREMITIES: Without cyanosis, clubbing or edema. NEUROLOGIC: Alert, oriented, nonfocal neurologic exam. IMPRESSION: A patient with chronic otitis for tubes. Instructed method of surgery and possible complications, including anesthetic complication such as cardiac difficulty, pulmonary difficulty, stroke, or even , surgical complication, early or late extrusion of tubes, tympanic membrane perforation, conductive or sensorineural hearing loss. Patient appeared to agree, accept, and understand above-mentioned risks and benefits. There were no guarantees or warrantees regarding outcome were given. We will therefore proceed with surgery. MD SHELLEY Hernandez/CHARLEY , 08:58 AM , 09:06 AM
== END | disposition home or self-care (01) ==
LOC: HSDC 05:22
PROVIDERS: ATTEND Specialist
DX: H66.3X3 Other chronic suppurative otitis media, bilateral (principal); J44.9 Chronic obstructive pulmonary disease, unspecified; I10 Essential (primary) hypertension
CPT/HCPCS: 00126; 69436; J7120

== ENCOUNTER 2018-01-03 20:34 | Observation (INO) | payer OTHER ==
[~2018-01-03] VITALS: Ht 177.8 cm; Wt 95.0 kg
[~2018-01-03 20:34] MED LIST changes: -ACETAMINOPHEN/HYDROcodone 325 MG/7.5 MG TAB PO PRN; -AMOX875T PO; -CHLORHEXIDINE GLUCONATE 2 % 1 PACK (2 CLOTHS) TOPICAL PRN; -DO NOT ADM ANY ANTICOAGULANT DRUGS PRN; -LACTATED RINGER'S 1000 ML IV PRN; -LIDOCAINE HCL 1% PF 5 ML SYRINGE OTHER ONE; -MEDR4PAK PO; -METOPROLOL TARTRATE 25 MG TAB PO PRN; -MORPHINE SULFATE 2 MG/ML INJ IV PUSH PRN; -OFLO0.3D9 EACH EAR; -OFLOXACIN 0.3% OPTH SOLN 5 ML BTL ONE; -ONDANSETRON HCL 4 MG/2 ML VIAL IV PUSH PRN; -POVIDONE IODINE 5% (ANTISEPSIS KIT) 4 APPLICATIONS EACH NARE PRN; -PRED20 PO; -PROPOFOL 200 MG/20 ML AMP IV ONE; -SODIUM CHLORID 0.9% 500 ML IV PRN
[2018-01-03 20:41] VITALS: BP 151/91; PULSE 84; RESP 18; O2SAT 96
[2018-01-03] MEDS ORDERED: CHOL5000 PO (20:48)
[2018-01-03] MEDS ORDERED: OCUVTAB4 PO (20:48)
[2018-01-03] MEDS ORDERED: SODIUM CHLORIDE 0.9% FLUSH 10 ML FLUSH IVF PRN (21:00)
[2018-01-03] MEDS ORDERED: RESP: ALBUTEROL 2.5 MG/IPRATROPIUM 0.5 MG NEB (SCH) INH ONE (21:00)
[2018-01-03 21:20] LABS: AUTOMATED NEUTROPHIL # 3.4 TH/MM3 (1.8-7.7); BASOPHIL % 0.5 % (0.0-2.0); EOSINOPHIL # 0.2 TH/MM3 (0-0.4); EOSINOPHIL % 2.6 % (0.0-4.0); HEMATOCRIT 36.8 % (39.0-51.0); HEMOGLOBIN 12.6 GM/DL (13.0-17.0); LYMPH % 38.8 % (9.0-44.0); LYMPHOCYTE # 2.7 TH/MM3 (1.0-4.8); MEAN CELL VOLUME 84.6 FL (80.0-100.0); MEAN CORPUSCULAR HEMOGLOBIN 29.1 PG (27.0-34.0); MEAN CORPUSCULAR HGB CONC 34.4 % (32.0-36.0); MEAN PLATELET VOLUME 6.7 FL (7.0-11.0); MONO % 10.4 % (0.0-8.0); MONOCYTE # 0.7 TH/MM3 (0-0.9); NEUT % 47.7 % (16.0-70.0); PLATELET COUNT 237 TH/MM3 (150-450); RED BLOOD COUNT 4.34 MIL/MM3 (4.50-5.90); RED CELL DISTRIBUTION WIDTH 15.2 % (11.6-17.2)
--- NOTE | 2018-01-03 21:36 | PD ---
HPI Chief Complaint: Cardiac Complaint Time Seen by Provider: 20:52 Travel History International Travel<30 days: No Contact w/Intl Traveler<30days: No Traveled to known affect area: No History of Present Illness HPI Is an 82-year-old man presents to the emergency department complaining of a fainting spell. Is a history of COPD. He states over the past couple weeks he has been feeling more weak. He uses home oxygen as needed. Today felt more weak and although more short of breath. He was laying down and got up had dizzy spell, cough, and then woke up back down on the bed having passed out. Unclear how long he was out. He has had some chest tightness and shortness of breath since then. He feels improved now. He did have a period of feeling disorganized also afterwards. He does have a new slight headache. No chest pain now. Very slight shortness of breath now. History Past Medical History Narrative Medical COPD, on home O2 Hypertension on hyperlipidemia CAD, history of [place] CKD Social History Alcohol Use: No Tobacco Use: Yes (5-6 CIGS/DAY) Allergies-Medications (Allergen,Severity, Reaction): Coded Allergies: No Known Allergies (Verified Allergy, Unknown, 01/03/18) Reported Meds & Prescriptions Reported Meds & Active Scripts Active Duoneb (Ipratropium-Albuterol Neb) 0.5-2.5 Mg/3 Ml Neb 1 Ampule NEB Q4HR NEB PRN Pantoprazole (Pantoprazole Sodium) 40 Mg Tab 40 Mg PO DAILY Reported Vitamin D3 (Cholecalciferol) 5,000 Unit Cap 5,000 Units PO DAILY Preservision Areds (Multiple Vitamins W/ Minerals) 1 Tab 1 Tab PO BID Aspirin 81 Mg Chew 81 Mg CHEW DAILY Symbicort Inh (Budesonide/Formoterol Fumarate) 160-4.5 Mcg/Act Aero 1 Puff INH Q12HR Proventil Hfa 6.7 GM Inh (Albuterol Sulfate) 90 Mcg/Act Aer 1 Puff INH Q4H PRN Accupril (Quinapril HCl) 10 Mg Tab 10 Mg PO BID Paroxetine (Paroxetine HCl) 20 Mg Tab 20 Mg PO DAILY Hydrochlorothiazide 12.5 Mg Tab 12.5 Mg PO DAILY Atorvastatin (Atorvastatin Calcium) 40 Mg Tab 40 Mg PO HS Ranitidine (Ranitidine HCl) 150 Mg Tab 150 Mg PO BID Amlodipine (Amlodipine Besylate) 10 Mg Tab 5 Mg PO DAILY Review of Systems Except as stated in HPI: all other systems reviewed are Neg Physical Exam Narrative GENERAL: This 82-year-old man, well-appearing, no acute distress. SKIN: Focused skin assessment warm/dry. HEAD: Atraumatic. Normocephalic. EYES: Pupils equal and round. No scleral icterus. No injection or drainage. ENT: No nasal bleeding or discharge. Mucous membranes pink and moist. NECK: Trachea midline. No JVD. CARDIOVASCULAR: Regular rate and rhythm. No murmur appreciated. RESPIRATORY: No accessory muscle use. Moderate diffuse wheezing with significant prolonged expiratory phase. GASTROINTESTINAL: Abdomen soft, non-tender, nondistended. Hepatic and splenic margins not palpable. MUSCULOSKELETAL: No obvious deformities. No significant edema. NEUROLOGICAL: Awake and alert. No obvious cranial nerve deficits. Motor grossly within normal limits. Normal speech. PSYCHIATRIC: Appropriate mood and affect; insight and judgment normal. Data Data Last Documented VS Vital Signs Date Time Temp Pulse Resp B/P (MAP) Pulse Ox O2 Delivery O2 Flow Rate FiO2 01/03/18 21:59 98 Nasal Cannula 2.00 01/03/18 21:59 75 16 Orders Orders Complete Blood Count With Diff (01/03/18 20:52) Comprehensive Metabolic Panel (01/03/18 20:52) B-Type Natriuretic Peptide (01/03/18 20:52) D-Dimer (01/03/18 20:52) Act Partial Throm Time (Ptt) (01/03/18 20:52) Prothrombin Time / Inr (Pt) (01/03/18 20:52) Magnesium (Mg) (01/03/18 20:52) Troponin I (01/03/18 20:52) Iv Access Insert/Monitor (01/03/18 20:52) Electrocardiogram (01/03/18 20:52) Ecg Monitoring (01/03/18 20:52) Oximetry (01/03/18 20:52) Oxygen Administration (01/03/18 20:52) Chest, Single Ap (01/03/18 20:52) Sodium Chloride 0.9% Flush (Ns Flush) (01/03/18 21:00) Albuterol-Ipratropium Neb (Duoneb Neb) (01/03/18 21:00) Ct Brain W/O Iv Contrast(Rout) (01/03/18 ) Ct Pulmonary Angiogram (01/03/18 ) Iodixanol 320 Inj (Rad Ct) (Visipaque 32 (01/03/18 22:38) Admit Order (Ed Use Only) (01/03/18 ) Labs Laboratory Tests Test 01/03/18 21:00 White Blood Count 7.0 TH/MM3 Red Blood Count 4.34 MIL/MM3 Hemoglobin 12.6 GM/DL Hematocrit 36.8 % Mean Corpuscular Volume 84.6 FL Mean Corpuscular Hemoglobin 29.1 PG Mean Corpuscular Hemoglobin Concent 34.4 % Red Cell Distribution Width 15.2 % Platelet Count 237 TH/MM3 Mean Platelet Volume 6.7 FL Neutrophils (%) (Auto) 47.7 % Lymphocytes (%) (Auto) 38.8 % Monocytes (%) (Auto) 10.4 % Eosinophils (%) (Auto) 2.6 % Basophils (%) (Auto) 0.5 % Neutrophils # (Auto) 3.4 TH/MM3 Lymphocytes # (Auto) 2.7 TH/MM3 Monocytes # (Auto) 0.7 TH/MM3 Eosinophils # (Auto) 0.2 TH/MM3 Basophils # (Auto) 0.0 TH/MM3 CBC Comment DIFF FINAL Differential Comment Prothrombin Time 9.9 SEC Prothromb Time International Ratio 1.0 RATIO Activated Partial Thromboplast Time 24.7 SEC D-Dimer Quantitative (PE/DVT) 1.14 MG/L FEU Blood Urea Nitrogen 19 MG/DL Creatinine 1.66 MG/DL Random Glucose 109 MG/DL Total Protein 7.1 GM/DL Albumin 3.7 GM/DL Calcium Level 9.0 MG/DL Magnesium Level 2.5 MG/DL Alkaline Phosphatase 100 U/L Aspartate Amino Transf (AST/SGOT) 21 U/L Alanine Aminotransferase (ALT/SGPT) 21 U/L Total Bilirubin 0.3 MG/DL Sodium Level 141 MEQ/L Potassium Level 3.6 MEQ/L Chloride Level 105 MEQ/L Carbon Dioxide Level 26.8 MEQ/L Anion Gap 9 MEQ/L Estimat Glomerular Filtration Rate 40 ML/MIN Troponin I LESS THAN 0.02 NG/ML B-Type Natriuretic Peptide 82 PG/ML MDM Medical Decision Making Medical Screen Exam Complete: Yes Emergency Medical Condition: Yes Interpretation(s) My review of EKG: Normal sinus rhythm at a rate of 94, normal axis, right bundle branch block, no definite evidence of acute ischemia. LABS: CBC is remarkable for mild anemia. CMP remarkable for mild elevated BUN and creatinine. Troponin negative. BMP is normal. D-dimer is low but elevated. Head CT negative. Chest x-ray is negative. CT pulmonary radiograph negative. Differential Diagnosis Syncopal episode, anemia, lightheadedness, COPD, PE, ACS, other Narrative Course Medical decision making INITIAL: Is an 82-year-old man presents emerged department with some chest pain shortness of breath and syncopal episode. This is probably multifactorial. Patient has a lot of underlying comorbidity. EMS called him a stimulant in the field because of some ST elevations in the inferior leads, this is from widening of the QRS from his right bundle branch block and he does not have an ST elevation [place]. Will check labs. Will include a d-dimer for PE given the chest pain shortness of breath and syncope. He has some persistent headache now. Will check head CT. Likely admission for observation. Physician Communication Physician Communication Spoke with Dr. Bhatt, will admit patient for observation. Diagnosis Primary Impression: Chest pain Additional Impression: Syncope Justus Lozano MD Jan 03, 2018 21:36
--- NOTE | 2018-01-03 21:39 | RADRPT ---
EXAM DATE/TIME: 01/03/2018 21:17 [facility] COMPARISON: CHEST SINGLE AP, June 18, 2017, 20:54. INDICATIONS : Short of breath MEDICAL HISTORY : Hypertension. Chronic obstructive pulmonary disease. SURGICAL HISTORY : Cardiac catheterization ENCOUNTER: Initial ACUITY: 1 day PAIN SCORE: 0/10 LOCATION: chest FINDINGS: Cardiomegaly. Clear lungs. Osseous structures are intact. CONCLUSION: No acute disease. Jevon Irby MD on January 03, 2018 at 21:36 Board Certified Radiologist. This report was verified electronically.
[2018-01-03 21:42] LABS: PROTHROMBIN TIME - PATIENT 9.9 SEC (9.8-11.6)
[2018-01-03 21:43] LABS: ALBUMIN 3.7 GM/DL (3.4-5.0); BICARBONATE 26.8 MEQ/L (21.0-32.0); BLOOD UREA NITROGEN 19 MG/DL (7-18); CHLORIDE 105 MEQ/L (98-107); CREATININE 1.66 MG/DL (0.60-1.30); GLOMERULAR FILTRATION RATE 40 ML/MIN (>89); GLUCOSE,RANDOM 109 MG/DL (74-106); MAGNESIUM 2.5 MG/DL (1.5-2.5); SODIUM (NA) 141 MEQ/L (136-145)
[2018-01-03 21:44] LABS: ALT (GPT) 21 U/L (12-78); AST (GOT) 21 U/L (15-37)
[2018-01-03 21:46] LABS: D-DIMER 1.14 MG/L FEU (0.00-0.50)
[2018-01-03 21:49] LABS: ALKALINE PHOSPHATASE 100 U/L (45-117); TOTAL BILIRUBIN ADULT 0.3 MG/DL (0.2-1.0); TOTAL PROTEIN 7.1 GM/DL (6.4-8.2); TROPONIN I LESS THAN 0.02 NG/ML (0.02-0.05)
--- NOTE | 2018-01-03 21:51 | RADRPT ---
EXAM DATE/TIME: 01/03/2018 21:33 [facility] COMPARISON: No previous studies available for comparison. INDICATIONS : Syncope RADIATION DOSE: 56.35 CTDIvol (mGy) MEDICAL HISTORY : Chronic obstructive pulmonary disease. Hypertension. SURGICAL HISTORY : Coronary artery stent. ENCOUNTER: Initial ACUITY: 1 day PAIN SCALE: 4/10 LOCATION: cranial TECHNIQUE: Multiple contiguous axial images were obtained of the head. Using automated exposure control and adj ustment of the mA and/or kV according to patient size, radiation dose was kept as low as reasonably a chievable to obtain optimal diagnostic quality images. DICOM format image data is available electro nically for review and comparison. FINDINGS: There is moderate atrophy and moderate patchy and confluence decreased attenuation in the bilateral c entrum semiovale and periventricular white matter and basal ganglia characteristic of chronic microva scular ischemic disease. There are vascular calcifications noted. No fractures. No signs of acute inf arct, hemorrhage or mass. CONCLUSION: No acute disease. Jevon Irby MD on January 03, 2018 at 21:48 Board Certified Radiologist. This report was verified electronically.
[2018-01-03 21:59] VITALS: BP 150/77; PULSE 75; RESP 16; O2SAT 98
[2018-01-03] MEDS ORDERED: IODIXANOL 320 MG/ML 10 ML VIAL (for Rad CT) IVCONTRAST ONE (22:38)
--- NOTE | 2018-01-03 22:50 | RADRPT ---
EXAM DATE/TIME: 01/03/2018 22:38 [facility] COMPARISON: CHEST SINGLE AP, January 03, 2018, 21:17. CT PULMONARY ANGIOGRAM, June 18, 2017, 22:21. INDICATIONS : Syncope and cough IV CONTRAST: 50 cc Visipaque (iodixanol) IV RADIATION DOSE: 19.70 CTDIvol (mGy) MEDICAL HISTORY : Hypertension. Chronic obstructive pulmonary disease. SURGICAL HISTORY : Coronary artery stent. ENCOUNTER: Initial ACUITY: 1 day PAIN SCALE: 0/10 LOCATION: chest TECHNIQUE: Volumetric scanning of the chest was performed using a pulmonary embolism protocol MIP images were re constructed. Using automated exposure control and adjustment of the mA and/or kV according to patien t size, radiation dose was kept as low as reasonably achievable to obtain optimal diagnostic quality images. DICOM format image data is available electronically for review and comparison. Follow-up recommendations for detected pulmonary nodules are based at a minimum on nodule size and pa tient risk factors according to Fleischner Society Guidelines. FINDINGS: Moderate emphysematous changes are identified. There is atelectasis at the lung bases, lingula and ri ght middle lobe. Atherosclerotic calcifications of the aorta and coronary arteries are noted. There i s no evidence for pulmonary embolus. There are degenerative changes of the spine. CONCLUSION: No evidence for pulmonary embolism. Emphysema. Scattered areas of atelectasis are noted. Jevon Irby MD on January 03, 2018 at 22:47 Board Certified Radiologist. This report was verified electronically.
--- NOTE | 2018-01-03 23:29 | HHI.HP ---
[facility] Nyasia Best MD Admission Diagnosis Syncope, chest pain Diagnoses: Chief Complaint: Syncope, chest pain Travel History International Travel<30 Days: No Contact w/Intl Traveler <30 Da: No Traveled to Known Affected Are: No History of Present Illness 82-year-old male with a history of hypertension, hyperlipidemia, COPD on home oxygen 2-3L, CKD, and arthritis presented to the ED after having a syncopal episode at home. Patient states for the last 5 days he's had a cough with minimal white sputum production and weakness. He states he was sitting on the side of the men and was coughing and had a loss of consciousness. He denies hitting his head. He complains of increased shortness of breath over the last 5 days and today he has had increased chest pressure when he coughs and takes a deep breath and denies any radiation. He gets more short of breath with exertion and has been compliant with his O2 at home. He does still continues to smoke. He denies any associated fevers or chills. On examination patient seems to be short of breath with expiratory wheezing and chest pressure. Review of Systems Except as stated in HPI: all other systems reviewed are Neg Past Family Social History Past Medical History Hypertension Hyperlipidemia Chronic kidney disease Arthritis COPD on home oxygen 2-3 L Past Surgical History Patient denies any surgical history Reported Medications Reported Meds & Active Scripts Active Duoneb (Ipratropium-Albuterol Neb) 0.5-2.5 Mg/3 Ml Neb 1 Ampule NEB Q4HR NEB PRN Pantoprazole (Pantoprazole Sodium) 40 Mg Tab 40 Mg PO DAILY Reported Vitamin D3 (Cholecalciferol) 5,000 Unit Cap 5,000 Units PO DAILY Preservision Areds (Multiple Vitamins W/ Minerals) 1 Tab 1 Tab PO BID Aspirin 81 Mg Chew 81 Mg CHEW DAILY Symbicort Inh (Budesonide/Formoterol Fumarate) 160-4.5 Mcg/Act Aero 1 Puff INH Q12HR Proventil Hfa 6.7 GM Inh (Albuterol Sulfate) 90 Mcg/Act Aer 1 Puff INH Q4H PRN Accupril (Quinapril HCl) 10 Mg Tab 10 Mg PO BID Paroxetine (Paroxetine HCl) 20 Mg Tab 20 Mg PO DAILY Hydrochlorothiazide 12.5 Mg Tab 12.5 Mg PO DAILY Atorvastatin (Atorvastatin Calcium) 40 Mg Tab 40 Mg PO HS Ranitidine (Ranitidine HCl) 150 Mg Tab 150 Mg PO BID Amlodipine (Amlodipine Besylate) 10 Mg Tab 5 Mg PO DAILY Allergies: Coded Allergies: No Known Allergies (Verified Allergy, Unknown, 01/03/18) Active Ordered Medications Current Medications Medications (Trade) Dose Ordered Sig/Ortiz Route Start Time Stop Time Status Last Admin (NS Flush) 2 ml UNSCH PRN IVF 01/03/18 21:00 (NS Flush) 2 ml UNSCH PRN IV FLUSH 01/04/18 00:45 (NS Flush) 2 ml BID IV FLUSH 01/04/18 09:00 01/04/18 03:03 (Tylenol) 650 mg Q4H PRN PO 01/04/18 00:45 (Zofran Inj) 4 mg Q6H PRN IVP 01/04/18 00:45 (Heparin Inj) 5,000 units Q8H SQ 01/04/18 00:45 01/04/18 00:51 (Narcan Inj) 0.4 mg UNSCH PRN IV PUSH 01/04/18 00:45 (Ramona-Colace) 1 tab BID PO 01/04/18 09:00 (Milk Of Magnesia Liq) 30 ml Q12H PRN PO 01/04/18 00:45 (Senokot) 17.2 mg Q12H PRN PO 01/04/18 00:45 (Dulcolax Supp) 10 mg DAILY PRN RECTAL 01/04/18 00:45 (Lactulose Liq) 30 ml DAILY PRN PO 01/04/18 00:45 (Duoneb Neb) 1 ampule Q4HR NEB NEB 01/04/18 00:45 01/04/18 03:47 (Duoneb Neb) 1 ampule Q2HR NEB PRN NEB 01/04/18 00:45 Sodium Chloride 1,000 ml @ 84 mls/hr [id number] IV 01/04/18 02:00 01/04/18 13:54 01/04/18 03:02 (SoluMEDROL INJ) 40 mg Q6HR IV PUSH 01/04/18 09:00 (Pneumovax-23 Inj) 25 mcg ONCE ONCE IM 01/04/18 09:00 01/04/18 09:01 Family History Patient denies any family history, no heart disease or cancer Social History Tobacco use: 10/06 PPD Alcohol use: Denies Physical Exam Vital Signs Vital Signs Date Time Temp Pulse Resp B/P (MAP) Pulse Ox O2 Delivery O2 Flow Rate FiO2 01/03/18 21:59 98 Nasal Cannula 2.00 01/03/18 21:59 75 16 150/77 (101) 98 Nasal Cannula 2.00 01/03/18 21:58 98 Nasal Cannula 2.00 01/03/18 20:41 84 18 151/91 (111) 96 Nasal Cannula 2.00 01/03/18 20:41 83 18 96 Nasal Cannula 2.00 Physical Exam GENERAL: This is a well-nourished, well-developed patient, who is short of breath SKIN: No rashes, ecchymoses or lesions. Cool and dry. HEAD: Atraumatic. Normocephalic. EYES: Pupils equal round and reactive. Extraocular motions intact. ENT: Nose without bleeding, purulent drainage or septal hematoma.Airway patent. NECK: Trachea midline. No JVD CARDIOVASCULAR: Regular rate and rhythm without murmurs, gallops, or rubs. RESPIRATORY: Expiratory wheezes noted, diminished bases, on 3L O2 GASTROINTESTINAL: Abdomen soft, non-tender, nondistended. MUSCULOSKELETAL: Extremities without clubbing, cyanosis, or edema. No joint tenderness, effusion, or edema noted. No calf tenderness. NEUROLOGICAL: Awake and alert. Motor and sensory grossly within normal limits.. Normal speech. Laboratory Laboratory Tests Test 01/03/18 21:00 White Blood Count 7.0 Red Blood Count 4.34 Hemoglobin 12.6 Hematocrit 36.8 Mean Corpuscular Volume 84.6 Mean Corpuscular Hemoglobin 29.1 Mean Corpuscular Hemoglobin Concent 34.4 Red Cell Distribution Width 15.2 Platelet Count 237 Mean Platelet Volume 6.7 Neutrophils (%) (Auto) 47.7 Lymphocytes (%) (Auto) 38.8 Monocytes (%) (Auto) 10.4 Eosinophils (%) (Auto) 2.6 Basophils (%) (Auto) 0.5 Neutrophils # (Auto) 3.4 Lymphocytes # (Auto) 2.7 Monocytes # (Auto) 0.7 Eosinophils # (Auto) 0.2 Basophils # (Auto) 0.0 CBC Comment DIFF FINAL Differential Comment Prothrombin Time 9.9 Prothromb Time International Ratio 1.0 Activated Partial Thromboplast Time 24.7 D-Dimer Quantitative (PE/DVT) 1.14 Blood Urea Nitrogen 19 Creatinine 1.66 Random Glucose 109 Total Protein 7.1 Albumin 3.7 Calcium Level 9.0 Magnesium Level 2.5 Alkaline Phosphatase 100 Aspartate Amino Transf (AST/SGOT) 21 Alanine Aminotransferase (ALT/SGPT) 21 Total Bilirubin 0.3 Sodium Level 141 Potassium Level 3.6 Chloride Level 105 Carbon Dioxide Level 26.8 Anion Gap 9 Estimat Glomerular Filtration Rate 40 Troponin I LESS THAN 0.02 B-Type Natriuretic Peptide 82 Result Diagram: 01/03/18 2100 01/03/182099 Imaging Last Impressions Chest X-Ray 01/03/182051 Signed Impressions: Service Date/Time: Wednesday, January 03, 2018 21:17 - CONCLUSION: No acute disease. Jevon Irby MD Head CT 01/03/18 0000 Signed Impressions: Service Date/Time: Wednesday, January 03, 2018 21:33 - CONCLUSION: No acute disease. Jevon Irby MD CT Angiography 01/03/18 0000 Signed Impressions: Service Date/Time: Wednesday, January 03, 2018 22:38 - CONCLUSION: No evidence for pulmonary embolism. Emphysema. Scattered areas of atelectasis are noted. MD Lopez Vivari VTE Risk Assessment Caprini VTE Risk Assessment: Mod/High Risk (score >= 2) Caprini Risk Assessment Model Point Value = 1 Point Value = 2 Point Value = 3 Point Value = 5 Age 41-60 Minor surgery BMI > 25 kg/m2 Swollen legs Varicose veins or History of unexplained or recurrent spontaneous Oral contraceptives or hormone replacement Sepsis (< 1 month) Serious lung disease, including pneumonia (< 1 month) Abnormal pulmonary function Acute myocardial infarction Congestive heart failure (< 1 month) History of inflammatory bowel disease Medical patient at bed rest Age 61-74 Arthroscopic surgery Major open surgery (> 45 min) Laparoscopic surgery (> 45 min) Malignancy Confined to bed (> 72 hours) Immobilizing plaster cast Central venous access Age >= 75 History of VTE Family history of VTE Factor V Leiden Prothrombin [id number] Lupus anticoagulant Anticardiolipin antibodies Elevated serum homocysteine Heparin-induced thrombocytopenia Other congenital or acquired thrombophilia Stroke (< 1 month) Elective arthroplasty Hip, pelvis, or leg fracture Acute spinal cord injury (< 1 month) Prophylaxis Regimen Total Risk Factor Score Risk Level Prophylaxis Regimen 0-1 Low Early ambulation 2 Moderate Order ONE of the following: *Sequential Compression Device (SCD) *Heparin 5000 units SQ BID 3-4 Higher Order ONE of the following medications: *Heparin 5000 units SQ TID *Enoxaparin/Lovenox 40 mg SQ daily (WT < 150 kg, CrCl > 30 mL/min) *Enoxaparin/Lovenox 30 mg SQ daily (WT < 150 kg, CrCl > 10-29 mL/min) *Enoxaparin/Lovenox 30 mg SQ BID (WT < 150 kg, CrCl > 30 mL/min) AND/OR *Sequential Compression Device (SCD) 5 or more Highest Order ONE of the following medications: *Heparin 5000 units SQ TID (Preferred with Epidurals) *Enoxaparin/Lovenox 40 mg SQ daily (WT < 150 kg, CrCl > 30 mL/min) *Enoxaparin/Lovenox 30 mg SQ daily (WT < 150 kg, CrCl > 10-29 mL/min) *Enoxaparin/Lovenox 30 mg SQ BID (WT < 150 kg, CrCl > 30 mL/min) AND *Sequential Compression Device (SCD) Assessment and Plan Problem List: (1) Syncope ICD Code: R55 - Syncope and collapse Status: Acute (2) Chest pain ICD Code: R07.9 - Chest pain, unspecified Status: Acute (3) COPD exacerbation ICD Code: J44.1 - Chronic obstructive pulmonary disease with (acute) exacerbation Status: Acute Assessment and Plan 82-year-old male with a history of hypertension, hyperlipidemia, COPD on home oxygen 2-3L, CKD, and arthritis presented to the ED after having a syncopal episode at home. Syncope, suspected due to vasovagal response from coughing CT head reviewed and shows no acute abnormalities -2-D echo ordered -Carotid ultrasound ordered Chest pain, atypical, suspect due to coughing, rule out ACS Troponin 0.02, EKG reviewed and shows sinus rhythm with a right bundle branch block -Serial troponin and EKGs ordered -Monitor telemetry -Consult cardiology if troponin elevate or change in EKG COPD exacerbation on chronic COPD Chest x-ray reviewed and shows no acute disease, CT angiogram reviewed and shows emphysema, scattered atelectasis, no PE. -Continue oxygen -Dual nebs scheduled and when necessary -Solu-Medrol IV ordered Q6H CKD, creatinine 1.66 at baseline -Avoid nephrotoxins -IVF ordered x 1L to flush out dye DVT prophylaxis: Heparin Discussed Condition With Patient, BUSINESS SYSTEMS MANAGER physician Bianka Cintron Jan 03, 2018 23:29
[2018-01-03 23:36] VITALS: BP 131/60; PULSE 68; RESP 16; O2SAT 99
[2018-01-04] VITALS (10 sets, daily range): BP systolic 133–152; BP diastolic 62–69; PULSE 67–88; RESP 18–22; TEMP 97.5–98.1; O2SAT 95–99
[2018-01-04] MEDS ORDERED: ONDANSETRON HCL 4 MG/2 ML VIAL IVP PRN (00:45)
[2018-01-04] MEDS ORDERED: NALOXONE HCL 0.4 MG/ML AMP IV PUSH PRN (00:45)
[2018-01-04] MEDS ORDERED: BISACODYL 10 MG SUPP RECTAL PRN (00:45)
[2018-01-04] MEDS ORDERED: SENNOSIDES 8.6 MG TAB PO PRN (00:45)
[2018-01-04] MEDS ORDERED: MAGNESIUM HYDROXIDE SUSP 30 ML CUP PO PRN (00:45)
[2018-01-04] MEDS ORDERED: RESP: ALBUTEROL 2.5 MG/IPRATROPIUM 0.5 MG NEB (PRN) NEB (00:45)
[2018-01-04] MEDS ORDERED: ACETAMINOPHEN 325 MG TAB PO PRN (00:45)
[2018-01-04] MEDS ORDERED: LACTULOSE SYRUP 20 GM/30 ML CUP PO PRN (00:45)
[2018-01-04] MEDS ORDERED: SODIUM CHLORIDE 0.9% FLUSH 10 ML FLUSH IV FLUSH PRN (00:45)
[2018-01-04] MEDS: HEPARIN SODIUM - SQ 10,000 UNITS/ML VIAL SQ SCH ×3 (00:51→16:51)
[2018-01-04] MEDS: RESP: ALBUTEROL 2.5 MG/IPRATROPIUM 0.5 MG NEB (SCH) NEB ×8 (01:06→22:47)
[2018-01-04] MEDS ORDERED: methylPREDNISolone SOD SUCC 125 MG/2 ML VIAL IV PUSH ONE (02:00)
[2018-01-04] MEDS ORDERED: SODIUM CHLOR 0.9% 1000 ML INJ 1,000 ML IV SCH (02:00)
[2018-01-04] MEDS: SODIUM CHLORIDE 0.9% FLUSH 10 ML FLUSH IV FLUSH SCH ×2 (03:03→21:04)
[2018-01-04 03:08] LABS: AUTOMATED NEUTROPHIL # 2.3 TH/MM3 (1.8-7.7); BASOPHIL % 0.3 % (0.0-2.0); EOSINOPHIL # 0.1 TH/MM3 (0-0.4); EOSINOPHIL % 1.7 % (0.0-4.0); HEMATOCRIT 34.4 % (39.0-51.0); HEMOGLOBIN 11.7 GM/DL (13.0-17.0); LYMPH % 37.4 % (9.0-44.0); LYMPHOCYTE # 1.7 TH/MM3 (1.0-4.8); MEAN CELL VOLUME 85.4 FL (80.0-100.0); MEAN CORPUSCULAR HEMOGLOBIN 29.1 PG (27.0-34.0); MEAN PLATELET VOLUME 6.4 FL (7.0-11.0); MONOCYTE # 0.5 TH/MM3 (0-0.9); NEUT % 49.6 % (16.0-70.0); PLATELET COUNT 197 TH/MM3 (150-450); RED BLOOD COUNT 4.03 MIL/MM3 (4.50-5.90); RED CELL DISTRIBUTION WIDTH 15.2 % (11.6-17.2); WHITE BLOOD COUNT 4.7 TH/MM3 (4.0-11.0)
[2018-01-04 03:34] LABS: BICARBONATE 30.6 MEQ/L (21.0-32.0); CALCIUM 8.6 MG/DL (8.5-10.1); CREATININE 1.6 MG/DL (0.60-1.30)
[2018-01-04] MEDS: DOCUSATE SODIUM 50 MG/SENNA 8.6 MG TAB PO SCH ×2 (08:09→21:04)
[2018-01-04] MEDS: PNEUMOCOCCAL POLYVALENT INJ 25 MCG/0.5 ML SYR IM ONE ×2 (08:10→08:18)
[2018-01-04] MEDS: methylPREDNISolone SOD SUCC 40 MG/1 ML VIAL IV PUSH SCH ×3 (08:11→18:29)
--- NOTE | 2018-01-04 08:21 | EKG ---
Date Performed: 01/04/2018 Time Performed: 03:56:05 PTAGE: 82 years EKG: Sinus rhythm MARKED RIGHT AXIS DEVIATION RIGHT BUNDLE BRANCH BLOCK ABNORMAL ECG PREVIOUS TRACING : 01/03/2018 20.38 Compared to previous tracing, rate slower DOCTOR: Lam Joy Interpretating Date/Time 01/04/2018 08:20:19
--- NOTE | 2018-01-04 08:50 | EKG ---
Date Performed: 01/03/2018 Time Performed: 20:38:46 PTAGE: 82 years EKG: Sinus rhythm RIGHT BUNDLE BRANCH BLOCK LEFT POSTERIOR FASCICULAR BLOCK ABNORMAL ECG PREVIOUS TRACING : 06/18/2017 20.22 Since the previous tracing, no significant change noted DOCTOR: Lam Joy Interpretating Date/Time 01/04/2018 08:48:16
--- NOTE | 2018-01-04 09:39 | RADRPT ---
EXAM DATE/TIME: 01/04/2018 09:23 [facility] COMPARISON: No previous studies available for comparison. INDICATIONS : Syncope. MEDICAL HISTORY : Myocardial infarction. Emphysema. Chronic obstructive pulmonary disease. Macular degeneration. CVA. L egally blind. Irregular heartbeat. Pneumonia. Tobacco use. Anticoagulant therapy. SURGICAL HISTORY : Cataract surgery. Cardiac cath. Naval and inguinal hernia repairs. Right butt cyst aspiration. ENCOUNTER: Initial ACUITY: 1 day PAIN SCORE: 0/10 LOCATION: Bilateral neck PEAK SYSTOLIC VELOCITIES (cm/sec): ICA/CCA RATIO: Right: 0.8 Left: 1.1 ICA: Right: 65.4 Left: 77.9 CCA: Right: 82.1 Left: 72.5 ECA: Right: 101.1 Left: 72.7 VERTEBRAL: Right: 29.3 antegrade Left: 42.9 antegrade Elevated flow velocities and ICA/CCA ratios have been found to correlate with increased degrees of vessel stenosis, calculated as percentage of diameter relative to a normal segment of distal ICA/CCA FINDINGS: RIGHT CAROTID: There is mild calcified and soft plaque evident at the bifurcation. The waveform is within normal samuels its. LEFT CAROTID: There is mild calcified plaque evident at the bifurcation. The waveform is within normal limits. VERTEBRAL ARTERIES: Antegrade flow is seen in both vertebral arteries. MISCELLANEOUS: None. CONCLUSION: 1. Atherosclerotic plaquing at the bifurcation. 2. No hemodynamically significant carotid artery stenosis identified. Varun Montano MD on January 04, 2018 at 9:36 Board Certified Radiologist. This report was verified electronically.
[2018-01-04] MEDS ORDERED: BENZONATATE 100 MG CAP PO PRN (19:15)
--- NOTE | 2018-01-04 19:18 | HHI.PR ---
Subjective Remarks Says his cough continues. Denies any chest pain. Reports continued shortness of breath. Objective Vital Signs Date Time Temp Pulse Resp B/P (MAP) Pulse Ox O2 Delivery O2 Flow Rate FiO2 01/04/18 15:16 98.1 82 20 133/63 (86) 96 01/04/18 15:14 88 01/04/18 11:56 97.5 75 20 148/67 (94) 96 01/04/18 07:40 98 Nasal Cannula 2.00 01/04/18 07:35 98.0 72 22 149/67 (94) 98 01/04/18 07:23 67 01/04/18 03:48 70 18 146/62 (90) 99 01/04/18 01:57 01/04/18 01:08 98 Nasal Cannula 3.00 01/03/18 23:36 68 16 131/60 (83) 99 Nasal Cannula 2.00 01/03/18 21:59 98 Nasal Cannula 2.00 01/03/18 21:59 75 16 150/77 (101) 98 Nasal Cannula 2.00 01/03/18 21:58 98 Nasal Cannula 2.00 01/03/18 20:41 84 18 151/91 (111) 96 Nasal Cannula 2.00 01/03/18 20:41 83 18 96 Nasal Cannula 2.00 I/O 01/03/18 01/03/18 01/03/18 01/04/18 01/04/18 01/04/18 07:00 15:00 23:00 07:00 15:00 23:00 Intake Total 300 ml Balance 300 ml Intake Oral 300 ml # Voids 4 # Bowel Movements 1 Result Diagram: 01/04/18 0240 01/04/18 0240 Objective Remarks GENERAL: Patient sitting up in bed. SKIN: Warm and dry. HEAD: Normocephalic. EYES: No scleral icterus. No injection or drainage. NECK: Supple, trachea midline. No JVD or lymphadenopathy. CARDIOVASCULAR: Regular rate and rhythm without murmurs, gallops, or rubs. RESPIRATORY: Breath sounds equal bilaterally. No accessory muscle use. Bilateral dry crackles. GASTROINTESTINAL: Abdomen soft, non-tender, nondistended. MUSCULOSKELETAL: No cyanosis, or edema. BACK: Nontender without obvious deformity. No CVA tenderness. A/P Assessment and Plan patient admitted for syncope, likely secondary to coughing from COPD exacerbation. 82-year-old male with a history of hypertension, hyperlipidemia, COPD on home oxygen 2-3L, CKD, and arthritis presented to the ED after having a syncopal episode at home. //Syncope, suspected due to vasovagal response from coughing CT head reviewed and shows no acute abnormalities -2-D echo ordered -Carotid ultrasound ordered = Carotid ultrasound with some plaque, no significant stenosis. Echocardiogram pending. //Chest pain, atypical, suspect due to coughing, rule out ACS Troponin 0.02, EKG reviewed and shows sinus rhythm with a right bundle branch block -Serial troponin and EKGs ordered -Monitor telemetry -Consult cardiology if troponin elevate or change in EKG //COPD exacerbation on chronic COPD Chest x-ray reviewed and shows no acute disease, CT angiogram reviewed and shows emphysema, scattered atelectasis, no PE. -Continue oxygen -Dual nebs scheduled and when necessary -Solu-Medrol IV ordered Q6H = Add Tessalon Perles for cough. Consult patient's wide area network systems administrator. //CKD, creatinine 1.66 at baseline -Avoid nephrotoxins -IVF ordered x 1L to flush out dye DVT prophylaxis: Heparin Discussed Condition With Patient, MATERIAL PLANNING ANALYST physician Discharge Planning Echocardiogram pending Awaiting improvement for COPD exacerbation Philip Hill MD Jan 04, 2018 19:18
--- NOTE | 2018-01-04 19:19 | HHI.FF ---
Face to Face Verification Diagnosis: (1) COPD exacerbation Physical Therapy Order: Evaluate and Treat Home Health Nursing Order: Nursing assessment with vital signs Manager Freelance Order: To Provide: Long range planning I have seen patient Dany Jessica on 01/04/18. My clinical findings support the need for the requested home health care services because: Limited ability to care for self I certify that my clinical findings support that this patient is homebound because: Unsafe to leave home unassisted Philip Hill MD Jan 04, 2018 19:19
[2018-01-04] MEDS ORDERED: RESP: IPRATROPIUM 0.5 MG/2.5 ML NEB NEB SCH (20:00)
[2018-01-04] MEDS ORDERED: SODIUM CHLORIDE 0.65% NASAL DRP/SPRY 30 ML BTL EACH NARE PRN (20:15)
[2018-01-05] MEDS: methylPREDNISolone SOD SUCC 40 MG/1 ML VIAL IV PUSH SCH ×2 (00:46→04:59)
[2018-01-05] MEDS: HEPARIN SODIUM - SQ 10,000 UNITS/ML VIAL SQ SCH ×2 (00:47→09:22)
[2018-01-05] MEDS: RESP: ALBUTEROL 2.5 MG/IPRATROPIUM 0.5 MG NEB (SCH) NEB ×3 (03:28→11:31)
[2018-01-05 04:29] VITALS: BP 153/66; PULSE 67; RESP 18; TEMP 97.9; O2SAT 96
[2018-01-05 05:44] LABS: AUTOMATED NEUTROPHIL # 5.7 TH/MM3 (1.8-7.7); BASOPHIL % 0.1 % (0.0-2.0); HEMATOCRIT 33.3 % (39.0-51.0); HEMOGLOBIN 11.3 GM/DL (13.0-17.0); LYMPH % 12.5 % (9.0-44.0); LYMPHOCYTE # 0.8 TH/MM3 (1.0-4.8); MEAN CELL VOLUME 84.3 FL (80.0-100.0); MEAN CORPUSCULAR HEMOGLOBIN 28.7 PG (27.0-34.0); MEAN PLATELET VOLUME 6.7 FL (7.0-11.0); MONO % 2.8 % (0.0-8.0); MONOCYTE # 0.2 TH/MM3 (0-0.9); NEUT % 84.6 % (16.0-70.0); PLATELET COUNT 196 TH/MM3 (150-450); RED BLOOD COUNT 3.95 MIL/MM3 (4.50-5.90); RED CELL DISTRIBUTION WIDTH 14.8 % (11.6-17.2); WHITE BLOOD COUNT 6.8 TH/MM3 (4.0-11.0)
[2018-01-05 06:19] LABS: ALBUMIN 3.2 GM/DL (3.4-5.0); CALCIUM 8.9 MG/DL (8.5-10.1); CREATININE 1.32 MG/DL (0.60-1.30); MAGNESIUM 2.2 MG/DL (1.5-2.5); PHOSPHORUS 2.6 MG/DL (2.5-4.9)
[2018-01-05 07:47] VITALS: BP 150/69; PULSE 65; RESP 20; TEMP 98.1; O2SAT 96
[2018-01-05 07:59] VITALS: O2SAT 97
[2018-01-05 08:18] VITALS: PULSE 64
[2018-01-05] MEDS: SODIUM CHLORIDE 0.9% FLUSH 10 ML FLUSH IV FLUSH SCH (09:22)
[2018-01-05] MEDS: DOCUSATE SODIUM 50 MG/SENNA 8.6 MG TAB PO SCH (09:23)
--- NOTE | 2018-01-05 11:04 | HHI.PR ---
Subjective Remarks Patient says that shortness of breath and cough is a little better today. Feels like going home. Objective Vital Signs Date Time Temp Pulse Resp B/P (MAP) Pulse Ox O2 Delivery O2 Flow Rate FiO2 01/05/18 09:38 Nasal Cannula 2.00 01/05/18 08:18 64 01/05/18 07:59 97 Nasal Cannula 2.00 01/05/18 07:47 98.1 65 20 150/69 (96) 96 01/05/18 04:29 97.9 67 18 153/66 (95) 96 01/04/18 20:20 95 Nasal Cannula 2.00 01/04/18 19:15 72 18 152/69 (96) 95 01/04/18 15:16 98.1 82 20 133/63 (86) 96 01/04/18 15:14 88 01/04/18 11:56 97.5 75 20 148/67 (94) 96 I/O 01/04/18 01/04/18 01/04/18 01/05/18 01/05/18 01/05/18 07:00 15:00 23:00 07:00 15:00 23:00 Intake Total 300 ml 320 ml Output Total 360 ml Balance 300 ml -40 ml Intake Oral 300 ml 320 ml Output Urine Total 360 ml # Voids 4 # Bowel Movements 1 Result Diagram: 01/05/1844201/05/18442 Objective Remarks GENERAL: Patient sitting up in bed. Appears comfortable. Alert and oriented 4. SKIN: Warm and dry. HEAD: Normocephalic. EYES: No scleral icterus. No injection or drainage. NECK: Supple, trachea midline. No JVD or lymphadenopathy. CARDIOVASCULAR: Regular rate and rhythm without murmurs, gallops, or rubs. RESPIRATORY: Breath sounds equal bilaterally. No accessory muscle use. Bilateral dry crackles. GASTROINTESTINAL: Abdomen soft, non-tender, nondistended. MUSCULOSKELETAL: No cyanosis, or edema. BACK: Nontender without obvious deformity. No CVA tenderness. A/P Assessment and Plan patient admitted for syncope, likely secondary to coughing from COPD exacerbation. 82-year-old male with a history of hypertension, hyperlipidemia, COPD on home oxygen 2-3L, CKD, and arthritis presented to the ED after having a syncopal episode at home. //Syncope, suspected due to vasovagal response from coughing CT head reviewed and shows no acute abnormalities -2-D echo ordered -Carotid ultrasound ordered = Carotid ultrasound with some plaque, no significant stenosis. Echocardiogram pending. = Echocardiogram still pending. //Chest pain, atypical, suspect due to coughing, rule out ACS Troponin 0.02, EKG reviewed and shows sinus rhythm with a right bundle branch block -Serial troponin and EKGs ordered -Monitor telemetry -Consult cardiology if troponin elevate or change in EKG //COPD exacerbation on chronic COPD Chest x-ray reviewed and shows no acute disease, CT angiogram reviewed and shows emphysema, scattered atelectasis, no PE. -Continue oxygen -Dual nebs scheduled and when necessary -Solu-Medrol IV ordered Q6H = Add Tessalon Perles for cough. Consult patient's hair and makeup designer. //CKD, creatinine 1.66 at baseline -Avoid nephrotoxins -IVF ordered x 1L to flush out dye Discharge Planning Echocardiogram still pending home with hh after echo Philip Hill MD Jan 05, 2018 11:04
[2018-01-05] MEDS ORDERED: SYMB160A INH (11:08)
[2018-01-05] MEDS ORDERED: IPRASOL NEB (11:08)
[2018-01-05] MEDS ORDERED: ALBU6.7H INH (11:08)
[2018-01-05] MEDS ORDERED: PRED10PA2 PO (11:08)
[2018-01-05 11:24] VITALS: BP 148/66; PULSE 71; RESP 20; TEMP 98.1; O2SAT 95
--- NOTE | 2018-01-05 13:35 | HHI.DS ---
Discharge Summary Admission Date Jan 03, 2018 at 23:15 Discharge Date: Jan 05, 2018 Admitting Diagnosis Syncope, chest pain (1) Syncope ICD Code: R55 - Syncope and collapse Status: Acute (2) Chest pain ICD Code: R07.9 - Chest pain, unspecified Status: Acute (3) COPD exacerbation ICD Code: J44.1 - Chronic obstructive pulmonary disease with (acute) exacerbation Status: Acute Procedures No invasive procedures. Brief History - From Admission 82-year-old male with a history of hypertension, hyperlipidemia, COPD on home oxygen 2-3L, CKD, and arthritis presented to the ED after having a syncopal episode at home. Patient states for the last 5 days he's had a cough with minimal white sputum production and weakness. He states he was sitting on the side of the men and was coughing and had a loss of consciousness. He denies hitting his head. He complains of increased shortness of breath over the last 5 days and today he has had increased chest pressure when he coughs and takes a deep breath and denies any radiation. He gets more short of breath with exertion and has been compliant with his O2 at home. He does still continues to smoke. He denies any associated fevers or chills. On examination patient seems to be short of breath with expiratory wheezing and chest pressure. CBC/BMP: 01/05/18 0443 01/05/18 0443 Significant Findings Laboratory Tests Test 01/03/18 21:00 01/04/18 02:40 01/04/18 13:15 01/05/18 04:43 Red Blood Count 4.34 MIL/MM3 (4.50-5.90) 4.03 MIL/MM3 (4.50-5.90) 3.95 MIL/MM3 (4.50-5.90) Hemoglobin 12.6 GM/DL (13.0-17.0) 11.7 GM/DL (13.0-17.0) 11.3 GM/DL (13.0-17.0) Hematocrit 36.8 % (39.0-51.0) 34.4 % (39.0-51.0) 33.3 % (39.0-51.0) Mean Platelet Volume 6.7 FL (7.0-11.0) 6.4 FL (7.0-11.0) 6.7 FL (7.0-11.0) Monocytes (%) (Auto) 10.4 % (0.0-8.0) 11.0 % (0.0-8.0) D-Dimer Quantitative (PE/DVT) 1.14 MG/L FEU (0.00-0.50) Blood Urea Nitrogen 19 MG/DL (7-18) 22 MG/DL (7-18) 23 MG/DL (7-18) Creatinine 1.66 MG/DL (0.60-1.30) 1.60 MG/DL (0.60-1.30) 1.32 MG/DL (0.60-1.30) Random Glucose 109 MG/DL (74-106) 115 MG/DL (74-106) 187 MG/DL (74-106) Estimat Glomerular Filtration Rate 40 ML/MIN (>89) 42 ML/MIN (>89) 52 ML/MIN (>89) Troponin I LESS THAN 0.02 NG/ML LESS THAN 0.02 NG/ML LESS THAN 0.02 NG/ML Neutrophils (%) (Auto) 84.6 % (16.0-70.0) Lymphocytes # (Auto) 0.8 TH/MM3 (1.0-4.8) Albumin 3.2 GM/DL (3.4-5.0) Imaging Last Impressions Carotid Artery Ultrasound 01/04/18 0000 Signed Impressions: Service Date/Time: Thursday, January 04, 2018 09:23 - CONCLUSION: 1. Atherosclerotic plaquing at the bifurcation. 2. No hemodynamically significant carotid artery stenosis identified. Varun Montano MD Chest X-Ray 01/03/182051 Signed Impressions: Service Date/Time: Wednesday, January 03, 2018 21:17 - CONCLUSION: No acute disease. Jevon Irby MD Head CT 01/03/18 0000 Signed Impressions: Service Date/Time: Wednesday, January 03, 2018 21:33 - CONCLUSION: No acute disease. Jevon Irby MD CT Angiography 01/03/18 0000 Signed Impressions: Service Date/Time: Wednesday, January 03, 2018 22:38 - CONCLUSION: No evidence for pulmonary embolism. Emphysema. Scattered areas of atelectasis are noted. Jevon Irby MD Hospital Course She was treated for COPD exacerbation with IV steroids and nebs with improvement. Patient underwent workup for syncope with negative imaging as above. Carotid ultrasound with plaque, however no significant stenosis. After discussion with family, family reports that patient's heart is "shot" and that neither patient nor family are interested in any kind of invasive intervention. They follow with Dr. Foss as outpatient. They declined echo today. Follow-up with primary care, Dr. Foss as outpatient. Continue steroid taper for COPD. New For problem based summary from most recent progress note, please see below. patient admitted for syncope, likely secondary to coughing from COPD exacerbation. 82-year-old male with a history of hypertension, hyperlipidemia, COPD on home oxygen 2-3L, CKD, and arthritis presented to the ED after having a syncopal episode at home. //Syncope, suspected due to vasovagal response from coughing CT head reviewed and shows no acute abnormalities -2-D echo ordered -Carotid ultrasound ordered = Carotid ultrasound with some plaque, no significant stenosis. Echocardiogram pending. = Echocardiogram still pending. //Chest pain, atypical, suspect due to coughing, rule out ACS Troponin 0.02, EKG reviewed and shows sinus rhythm with a right bundle branch block -Serial troponin and EKGs ordered -Monitor telemetry -Consult cardiology if troponin elevate or change in EKG //COPD exacerbation on chronic COPD Chest x-ray reviewed and shows no acute disease, CT angiogram reviewed and shows emphysema, scattered atelectasis, no PE. -Continue oxygen -Dual nebs scheduled and when necessary -Solu-Medrol IV ordered Q6H = Add Tessalon Perles for cough. Consult patient's putty and patch worker. //CKD, creatinine 1.66 at baseline -Avoid nephrotoxins -IVF ordered x 1L to flush out dye Discharge Planning Echocardiogram still pending home with hh after echo Pt Condition on Discharge: Good Discharge Disposition: Disch w/ Home Health Serv Discharge Time: > 30 minutes Discharge Instructions DIET: Follow Instructions for: Heart Healthy Diet Activities you can perform: Regular-No Restrictions Follow up Referrals: Cardiology - 2 Weeks with Farrah Foss MD PCP Follow-up - 1 Week with Nyasia Best MD Pulmonology - 1 Week with Shayne Duran MD New Medications: Prednisone (48) 10 mg tab Dose Pack (Prednisone (48) 10 mg tab Dose Pack) 10 Mg Dspk 10 MG PO DIRECTED for Inflammation, #1 DSPK 0 Refills Continued Medications: Albuterol 6.7 GM Inh (Proventil Hfa 6.7 GM Inh) 90 Mcg/Act Aer 1 PUFF INH Q4H PRN for SHORTNESS OF BREATH, #1 INHALER 0 Refills (This prescription has been renewed) Aspirin (Aspirin) 81 Mg Chew 81 MG CHEW DAILY, TAB 0 Refills Atorvastatin (Atorvastatin) 40 Mg Tab 40 MG PO HS for Cholesterol Management, #30 TAB 0 Refills Budesonide-Formoterol Inh (Symbicort Inh) 160-4.5 Mcg/Act Aero 1 PUFF INH Q12HR for 30 Days, #1 INHALER 0 Refills (This prescription has been renewed) Cholecalciferol (Vitamin D3) 5,000 Unit Cap 5000 UNITS PO DAILY for Nutritional Supplement, #30 CAP 0 Refills Hydrochlorothiazide (Hydrochlorothiazide) 12.5 Mg Tab 12.5 MG PO DAILY, #30 TAB 0 Refills Ipratropium-Albuterol Neb (Duoneb) 0.5-2.5 Mg/3 Ml Neb 1 AMPULE NEB Q4HR NEB PRN for wheezing, #100 ML (This prescription has been renewed) Multiple Vitamins W/ Minerals (Preservision Areds) 1 Tab 1 TAB PO BID for Nutritional Supplement, TAB 0 Refills Pantoprazole (Pantoprazole) 40 Mg Tab 40 MG PO DAILY for Manage Heartburn, #30 TAB Paroxetine (Paroxetine) 20 Mg Tab 20 MG PO DAILY, #30 TAB 0 Refills Discontinued Medications: Amlodipine (Amlodipine) 10 Mg Tab 5 MG PO DAILY for Blood Pressure Management, #30 TAB 0 Refills Quinapril (Accupril) 10 Mg Tab 10 MG PO BID, #60 TAB 0 Refills Ranitidine (Ranitidine) 150 Mg Tab 150 MG PO BID for Heartburn Management, #60 TAB 0 Refills Philip Hill MD Jan 05, 2018 13:35
--- NOTE | 2018-01-05 16:19 | EKG ---
Date Performed: 01/04/2018 Time Performed: 09:25:37 PTAGE: 82 years EKG: Sinus rhythm BORDERLINE RIGHT AXIS DEVIATION INTRAVENTRICULAR CONDUCTION DELAY INFERIOR MYOCARDIAL INFARCTION TYP E 3 BRUGADA PATTERN (NON-DIAGNOSTIC) ABNORMAL ECG PREVIOUS TRACING : 01/04/2018 03.56 Largely unchanged from prior tracing. DOCTOR: Fei Mei Interpretating Date/Time 01/05/2018 16:18:05
[2018-01-05] MEDS ORDERED: predniSONE 20 MG TAB PO SCH (21:00)
--- NOTE | 2018-01-06 13:36 | HM ---
Date Performed: 01/04/2018 Time Performed: 15:31:00 HOOKUP DATE: 01/04/18 03:31:00 PM Mon ANALYSIS START TIME: 01/04/2018 3:36:00 PM ANALYSIS END TIME: 01/05/2018 12:17:38 PM PATIENT AGE: 82 PATIENT HEIGHT PATIENT WEIGHT DRUG LIST PATIENT DIAGNOSIS: syncope chest pain TEST NARRATIVE: The patient's average heart rate was 72 BPM. No episodes of tachycardia wer e noted. No episodes of bradycardia were noted. No pauses exceeding 2.0 seconds were noted. 2861 ventricular ectopics, which represented 3% of the total beat count, were noted. The highest marta tricular ectopic frequency occurred from 04:00 PM to 05:00 PM Mon. During this time 626 VE(s) occurr ed. Ventricular ectopics were observed as 2771 isolated beat(s) and as 45 couplet(s). No runs were noted. Some of the ventricular beats occurred in bigeminal cycles. 138 supraventricular ectopics , which represented < 1% of the total beat count, were noted. The highest supraventricular ectopic f requency occurred from 04:00 AM to 05:00 AM Tue. During this time 28 SVE(s) occurred. No episode s of ST depression (defined as -1.0 mm or more) were noted in channel 1. No episodes of ST depressio n (defined as -1.0 mm or more) were noted in channel 2. No episodes of ST depression (defined as -1. 0 mm or more) were noted in channel 3. TEST INTERPRETATION: Sinus rhythm occasional to frequent PVCs in singlets and couplets Rare PACs Signed by : Justus Vernon
--- NOTE | 2018-01-06 15:25 | MB ---
cc: Shayne Duran MD DATE: 01/05/2018 REQUESTING PHYSICIAN: Philip Hill MD REASON FOR CONSULTATION: COPD exacerbation. HISTORY OF PRESENT ILLNESS: Mr. Jessica is an 82-year-old male with history of hypertension, hyperlipidemia, COPD. The patient has not been doing well for a long period of time, but for the last 5 days, breathing is getting much worse. He has been having cough and congestion. He also had an episode of passing out. He tried to get up from the bed and found himself lying in the bed. He is not sure how long he was out. Did not have fever, chills. No night sweats. No palpitation. No chest pain. The patient was worked up in the hospital. His workup shows carotid ultrasound is unremarkable. Chest x-ray shows no acute disease. CTA of the chest showed no evidence of pulmonary embolism. It shows emphysema and scattered area of atelectasis. CT scan of the brain is unremarkable. His CBC showed WBC count 6.8, hemoglobin 11.3, hematocrit 33.3, MCV 84, platelet count 196. Sodium 139, potassium 3.9, chloride 106, CO2 of 23, BUN 23, creatinine 1.32. INR is 1.0. PAST MEDICAL HISTORY: Significant for history of COPD, coronary arteries a long time ago. He follows with Dr. Foss. MEDICATIONS: He is currently taking Solu-Medrol aerosol treatment, antibiotic, Spiriva once a day. ALLERGIES: NO KNOWN DRUG ALLERGIES. SOCIAL HISTORY: He has a long history of smoking, currently smokes 6 cigarettes a day. No alcohol use. He is . He has 4 stepchildren. He is retired, worked in a hardware store. REVIEW OF SYSTEMS: He walks only short distance. No fever, chills. No night sweats. No DVT or pulmonary embolism. PHYSICAL EXAMINATION: GENERAL: Obese, elderly male, not in any acute distress. VITAL SIGNS: Blood pressure 150/69, heart rate 65, respirations 20, temperature 98. HEENT: Pupils are equal and reactive. Oral mucosa and nasal mucosa normal. NECK: Supple. JVD not raised. CHEST: He has expiratory rhonchi. CARDIOVASCULAR: S1, S2 normal. ABDOMEN: Soft, nondistended. Bowel sounds are present. EXTREMITIES: No edema. IMPRESSION: 1. Chronic obstructive pulmonary disease exacerbation. 2. Bronchitis. 3. Syncopal episode. 4. Coronary artery disease. PLAN: We will give him aerosol treatment. Continue steroids and antibiotics. Supplement his oxygen. His workup for syncope is underway. Further treatment will depend on the course in the hospital. Thank you, Dr. Hill, for this consult. MD SIMBA Glover/SB , 02:40 PM , 03:17 PM [email or web address]
== END 2018-01-05 13:47 | disposition home or self-care (01) ==
LOC: NEPC 20:34 → NEDA 23:15 → NEPFCDU 01-04 01:51
PROVIDERS: ADMIT Internal Medicine; ATTEND Internal Medicine
DX: J44.1 Chronic obstructive pulmonary disease with (acute) exacerbation (principal); R07.89 Other chest pain; R55 Syncope and collapse; I12.9 Hypertensive chronic kidney disease with stage 1 through stage 4 chronic kidney disease, or unspecified chronic kidney disease; N18.9 Chronic kidney disease, unspecified; E78.5 Hyperlipidemia, unspecified; R06.02 Shortness of breath; R94.31 Abnormal electrocardiogram [ECG] [EKG]; Z99.81 Dependence on supplemental oxygen; Z79.01 Long term (current) use of anticoagulants
CPT/HCPCS: 70450; 71045; 71275; 80048; 80053; 80069; 83735; 83880; 84484; 85025; 85379; 85610; 85730; 93005; 93225; 93226; 93880; 94150; 94640; 94664; 94667; 94668; 96361; 96372; 96374; 96376; 97162; 99285; G0378; G8987; G8988; J1644; J2920; J2930; J7030; Q9967; 90732

== ENCOUNTER 2018-05-20 18:58 | Inpatient (IN) ==
--- NOTE | 2018-05-20 19:23 | ED ---
HPI General Chief Complaint: Shortness of Breath/Dyspnea Stated Complaint: Medical Time Seen by Provider: 05/20/18 19:09 Source: patient and EMS Mode of arrival: EMS Limitations: no limitations History of Present Illness 83-year-old male patient with history of Skin cancer status post biopsy today, hypertension,Multiple medical issues, presents to the ER today brought in by EMS because he states that he was not feeling well today, and had walked to the bathroom, had a syncopal episode. He woke up feeling short of breath. He states that he was already having some sense of general weakness and shortness of breath today before the episode.He currently denies any injuries, chest pains , fevers, or other symptoms. Related Data Allergies Allergy/AdvReac Type Severity Reaction Status Date / Time No Known Allergies Allergy Verified 05/20/18 19:07 Review of Systems ROS: all other systems reviewed are negative [facility] Medical History Medical History COPD (chronic obstructive pulmonary disease) (Acute) Ejection fraction < 50% (Acute) Skin cancer (Acute) Social History Social History Substance History: No History of Abuse Second Hand Smoke Exposure: Yes Smoking Status: Current every day smoker Tobacco Type: Cigarettes How Often Do You Have a Drink Containing Alcohol: Never Recent Travel in [facility] within the Last 8 Weeks: No Recent Out of Country Travel within the Last 8 Weeks: No Immunization History Tetanus Immunization: >5 Years Hx Influenza Vaccine This Season: No Exam Narrative Exam Narrative: GENERAL: Well-developed elderly white male patient currently in moderate distress. Awake and oriented 3. SKIN: Focused skin assessment warm/dry. HEAD: The right forehead biopsy site is clean, sutured in place, no significant bleeding. Normocephalic. EYES: Pupils equal and round. No scleral icterus. No injection or drainage. ENT: No nasal bleeding or discharge. Mucous membranes pink and moist. NECK: Trachea midline. No JVD. Supple. CARDIOVASCULAR: Regular rate and rhythm. No murmur appreciated. RESPIRATORY: Mild accessory muscle use.Decreased throughout bilaterally. Breath sounds equal bilaterally. GASTROINTESTINAL: Abdomen soft, non-tender, nondistended. Hepatic and splenic margins not palpable. MUSCULOSKELETAL: No obvious deformities. No clubbing. No cyanosis. No edema. NEUROLOGICAL: Awake and alert. No obvious cranial nerve deficits. Motor grossly within normal limits. Normal speech. PSYCHIATRIC: Appropriate mood and affect; insight and judgment normal. Course Initial Documented Vital Signs Temperature 97.8 F 05/20/18 19:01 Pulse Rate 73 05/20/18 19:01 Respiratory Rate 30 H 05/20/18 19:01 Blood Pressure 153/65 H 05/20/18 19:01 Pulse Oximetry 97 05/20/18 19:01 Last Documented Vital Signs Temperature 97.8 F 05/20/18 19:01 Pulse Rate 75 05/20/18 19:23 Respiratory Rate 30 H 05/20/18 19:01 Blood Pressure 153/65 H 05/20/18 19:01 Pulse Oximetry 96 05/20/18 19:23 Medical Decision Making MDM Narrative Medical decision making narrative: Patient was given additional nebulizers in the ER. He has left sided pulmonary infiltrates at the bases questionable for pneumonia. He apparently has been through a course of Zithromax already according to his . At this point, cefepime was initiated in the ER after IV After blood cultures were drawn. VQ scan has been ordered for further evaluation as well considering his history of cancer. CT the brain was also ordered. Patient is currently conversant, has no focal neurological deficits. Case was discussed with Dr. Lomeli for admission for further evaluation of syncope as well. Medical Screen Exam Complete: Yes Emergency Medical Condition: Yes Differential Diagnosis Differential Diagnosis: COPD exacerbation versus pneumonia versus PE versus CHF Lab Data Lab results reviewed: Yes I reviewed the patient's lab results. Result diagrams: 05/20/18 19:15 05/20/18 19:15 Lab Results 05/20/18 05/20/18 05/20/18 Range/Units 19:15 19:15 19:15 WBC 13.3 H (4.0-11.0) th/mm3 RBC 4.54 (4.50-5.90) mil/mm3 Hgb 13.0 (13.0-17.0) gm/dL Hct 39.6 (39.0-51.0) % MCV 87.3 (80.0-100.0) fL MCH 28.7 (27.0-34.0) pg MCHC 32.9 (32.0-36.0) % RDW 13.7 (11.6-17.2) % Plt Count 243 (150-450) th/mm3 MPV 6.8 L (7.0-11.0) fL Neut % (Auto) 84.1 H (16.0-70.0) % Lymph % (Auto) 8.1 L (9.0-44.0) % [place] % (Auto) 6.2 (0.0-8.0) % Eos % (Auto) 1.4 (0.0-4.0) % Baso % (Auto) 0.2 (0.0-2.0) % Neut # (Auto) 11.2 H (1.8-7.7) th/mm3 Lymph # (Auto) 1.1 (1.0-4.8) th/mm3 [place] # (Auto) 0.8 (0.0-0.9) th/mm3 Eos # (Auto) 0.2 (0.0-0.4) th/mm3 Baso # (Auto) 0.0 (0.0-0.2) th/mm3 WBC Differential . Differential Comment Auto diff final PT 10.7 (9.8-11.6) sec INR 1.1 Ratio APTT 21.0 L (24.3-30.1) sec Sodium 142 (136-145) meq/L Potassium 3.6 (3.5-5.1) meq/L Chloride 107 (98-107) meq/L Carbon Dioxide 28.6 (21.0-32.0) meq/L Anion Gap 6 (5-15) meq/L BUN 33 H (7-18) mg/dL Creatinine 1.47 H (0.60-1.30) mg/dL Estimated GFR 46 L (>89) mL/min Random Glucose 156 H (74-106) mg/dL Calcium 8.6 (8.5-10.1) mg/dL Total Bilirubin 0.4 (0.2-1.0) mg/dL AST 16 (15-37) U/L ALT 21 (12-78) U/L Alkaline Phosphatase 78 (45-117) U/L Troponin I Less than 0.02 L (0.02-0.05) ng/mL Total Protein 6.3 L (6.4-8.2) g/dL Albumin 3.4 (3.4-5.0) g/dL Imaging Data Attestation: I personally reviewed and interpreted this imaging study as follows : Radiologist's impression: Chest X-Ray 05/20/18 19:09 CONCLUSION: Left basilar atelectasis/infiltrate. ECG Data Attestation: I personally reviewed and interpreted this ECG as follows: Interpretation: EKG shows normal sinus rhythm with a right bundle branch block pattern, rate 74 bpm. Discharge Plan Discharge Disposition Patient Disposition: 30 Still Patient Discharge Condition Condition: Stable Discharge Details Anticipated Discharge Date: 05/20/18 Diagnosis: Acute exacerbation of chronic obstructive airways disease, Syncope, Pneumonia Physicians Team ED Provider: Clare Schaeffer Primary Care Provider: Nyasia Best Attending Provider: Marizol Fraga Status ED Status: Admitted Patient
--- NOTE | 2018-05-20 19:24 | XR ---
EXAM DATE: 05/20/2018 7:19 PM EDT AGE/SEX: 83 years / Male INDICATIONS: short of breath CLINICAL DATA: This is the patient's initial encounter. Patient reports that signs and symptoms have been present for 1 day and indicates a pain score of 0/10. MEDICAL/SURGICAL HISTORY: . Myocardial infarction. Emphysema. Chronic obstructive pulmonary dis ease. Macular degeneration. CVA. Legally blind. Irregular heartbeat. Pneumonia. Tobacco use. Anticoag ulant therapy. . Cataract surgery. Cardiac cath. Naval and inguinal hernia repairs. Right butt cyst COMPARISON: [facility] – [place], CHEST SINGLE AP, 01/03/2018. . FINDINGS: A single AP view of the chest demonstrates left basilar atelectasis or infiltrate. Right lung is bert r. Heart size is normal. Osseous structures are intact. CONCLUSION: Left basilar atelectasis/infiltrate. Electronically signed by: Anthony Mills MD 05/20/2018 7:22 PM EDT
[2018-05-20 20:08] LABS: Baso % (Auto) 0.2 % (0.0-2.0); Eos # (Auto) 0.2 th/mm3 (0.0-0.4); Eos % (Auto) 1.4 % (0.0-4.0); Hematocrit 39.6 % (39.0-51.0); Lymph # (Auto) 1.1 th/mm3 (1.0-4.8); Lymph % (Auto) 8.1 % (9.0-44.0); Mean Corpuscular HGB Conc 32.9 % (32.0-36.0); Mean Corpuscular Hemoglobin 28.7 pg (27.0-34.0); Mean Corpuscular Volume 87.3 fL (80.0-100.0); Mean Platelet Volume 6.8 fL (7.0-11.0); Mono # (Auto) 0.8 th/mm3 (0.0-0.9); Mono % (Auto) 6.2 % (0.0-8.0); Neut # (Auto) 11.2 th/mm3 (1.8-7.7); Neut % (Auto) 84.1 % (16.0-70.0); Platelet Count 243 th/mm3 (150-450); Red Blood Count 4.54 mil/mm3 (4.50-5.90); Red Cell Distribution Width 13.7 % (11.6-17.2); White Blood Count 13.3 th/mm3 (4.0-11.0)
[2018-05-20 20:20] LABS: INR 1.1 Ratio; Prothrombin Time 10.7 sec (9.8-11.6)
[2018-05-20 20:25] LABS: Albumin 3.4 g/dL (3.4-5.0); Anion Gap 6 meq/L (5-15); Aspartate Aminotransferase 16 U/L (15-37); Blood Urea Nitrogen 33 mg/dL (7-18); Calcium 8.6 mg/dL (8.5-10.1); Carbon Dioxide 28.6 meq/L (21.0-32.0); Chloride 107 meq/L (98-107); Glomerular Filtration Rate 46 mL/min (>89); Glucose,Random 156 mg/dL (74-106); Potassium 3.6 meq/L (3.5-5.1); Sodium 142 meq/L (136-145)
[2018-05-20 20:26] LABS: Alanine Aminotransferase 21 U/L (12-78)
[2018-05-20 20:30] LABS: Alkaline Phosphatase 78 U/L (45-117); Total Protein 6.3 g/dL (6.4-8.2)
[2018-05-20] MEDS ORDERED: Bisacodyl 10 MG Supp RECTAL PRN (20:52)
--- NOTE | 2018-05-20 20:55 | P.HPIM ---
History of Present Illness Primary Care Physician: Nyasia Best MD History of Present Illness: This is an 83-year-old male with a PMH of HTN, COPD, CHF (Unknown EF) and Skin CA who was brought to the ER by EMS after syncopal event. states pt hasn' t been feeling well over the last few days and has been on Z-pack by PCP. Today had syncopal event while walking to the bathroom. Reports dizziness prior to event and SOB following. No chest pain. states she's been "getting over the flu", however pt denies fever or chills. On arrival, P1 53/65 , HR 73, O2 sat 97% on 2L NC, Afebrile. WBC 13.3. Creatinine 1.47. Troponin negative. CT Head with stable chronic changes, no acute findings. CXR with left basilar atelectasis/infiltrate. V/Q pending. Follows w/ Dr. Foss as outpatient. - Diagnosis (1) Syncope (2) PNA (pneumonia) (3) COPD (chronic obstructive pulmonary disease) Inpatient Certification: I certify that the inpatient services were ordered in accordance with Medicare regulations governing the order. This includes certification that hospital inpatient services are reasonable and necessary and in the case of services not specified as inpatient-only under 42 CFR 419.22(n), that they are appropriately provided as inpatient services in accordance to with the 2-midnight benchmark under 43 CFR 412.3(e) Review of Systems PAST FAMILY HISTORY: Reviewed. No h/o DM or CAD All other systems reviewed negative except as stated in HPI [facility] - History History Provided By: Patient - Medical History Medical History: Medical History (Last Reviewed 05/20/18 @ 19:21 by Clare Schaeffer MD) COPD (chronic obstructive pulmonary disease) Ejection fraction < 50% Skin cancer - Tobacco History Second Hand Smoke Exposure: Yes Tobacco Use In Past 30 Days: Yes Smoking Status: Current every day smoker Tobacco Type: Cigarettes - Alcohol History How Often Do You Have a Drink Containing Alcohol: Never - Substance Use History Substance History: No History of Abuse - Travel History Recent Travel in the [place] Within the Last 8 Weeks: No Recent Travel Out of the Country Within the Last 8 Weeks: No - Immunization History Tetanus Immunization: >5 Years Hx Influenza Vaccine This Season: No Medications and Allergies Allergies Allergy/AdvReac Type Severity Reaction Status Date / Time No Known Allergies Allergy Verified 05/20/18 19:07 Exam Vital signs: Vital Signs 05/20/18 19:01 05/20/18 19:23 Temperature 97.8 F Pulse Rate 73 75 Respiratory Rate 30 H Blood Pressure 153/65 H Pulse Oximetry 97 96 Intake & Output 05/20/18 05/20/18 05/21/18 06:59 18:59 06:59 Weight 99.79 kg Narrative: PE: GENERAL: Pleasant elderly white male in no acute distress. HEENT: PERRLA, EOMI. No scleral icterus or conjunctival pallor. No lid lag or facial droop. CARDIOVASCULAR: Regular rate and rhythm. No obvious murmurs to auscultation. No chest tenderness to palpation. RESPIRATORY: No obvious rhonchi, occasional wheezing. Clear to auscultation. Breath sounds equal bilaterally. GASTROINTESTINAL: Abdomen soft, non-tender, nondistended. BS normal. MUSCULOSKELETAL: Extremities without clubbing, cyanosis, or edema. No obvious deformities. NEUROLOGICAL: Awake, alert and oriented x4. No focal neurologic deficits. Moving both upper and lower extremities spontaneously. Results - Labs CBC & Chem 7: 05/20/18 19:15 05/20/18 19:15 Labs: Short CBC 05/20/18 Range/Units 19:15 WBC 13.3 H (4.0-11.0) th/mm3 Hgb 13.0 (13.0-17.0) gm/dL Hct 39.6 (39.0-51.0) % Plt Count 243 (150-450) th/mm3 BMP 05/20/18 19:15 Sodium 142 Potassium 3.6 Chloride 107 Carbon Dioxide 28.6 BUN 33 H Creatinine 1.47 H Calcium 8.6 Cardiac Enzymes 05/20/18 Range/Units 19:15 Troponin I Less than 0.02 L (0.02-0.05) ng/mL Liver Function 05/20/18 Range/Units 19:15 Total Bilirubin 0.4 (0.2-1.0) mg/dL AST 16 (15-37) U/L ALT 21 (12-78) U/L Alkaline Phosphatase 78 (45-117) U/L Albumin 3.4 (3.4-5.0) g/dL - Imaging Impressions Chest X-Ray 05/20/18 19:09 CONCLUSION: Left basilar atelectasis/infiltrate. Caprini VTE Risk Assessment Caprini VTE Risk Assessment: No/Low Risk (score <= 1) Caprini Risk Assessment Model: Point Value = 1 Point Value = 2 Point Value = 3 Point Value = 5 Age 41-60 Minor surgery BMI > 25 kg/m2 Swollen legs Varicose veins or History of unexplained or recurrent spontaneous Oral contraceptives or hormone replacement Sepsis (< 1 month) Serious lung disease, including pneumonia (< 1 month) Abnormal pulmonary function Acute myocardial infarction Congestive heart failure (< 1 month) History of inflammatory bowel disease Medical patient at bed rest Age 61-74 Arthroscopic surgery Major open surgery (> 45 min) Laparoscopic surgery (> 45 min) Malignancy Confined to bed (> 72 hours) Immobilizing plaster cast Central venous access Age >= 75 History of VTE Family history of VTE Factor V Leiden Prothrombin [id number] Lupus anticoagulant Anticardiolipin antibodies Elevated serum homocysteine Heparin-induced thrombocytopenia Other congenital or acquired thrombophilia Stroke (< 1 month) Elective arthroplasty Hip, pelvis, or leg fracture Acute spinal cord injury (< 1 month) Prophylaxis Regimen: Total Risk Factor Score Risk Level Prophylaxis Regimen 0-1 Low Early ambulation 2 Moderate Order ONE of the following: *Sequential Compression Device (SCD) *Heparin 5000 units SQ BID 3-4 Higher Order ONE of the following medications: *Heparin 5000 units SQ TID *Enoxaparin/Lovenox 40 mg SQ daily (WT < 150 kg, CrCl > 30 mL/min) *Enoxaparin/Lovenox 30 mg SQ daily (WT < 150 kg, CrCl > 10-29 mL/min) *Enoxaparin/Lovenox 30 mg SQ BID (WT < 150 kg, CrCl > 30 mL/min) AND/OR *Sequential Compression Device (SCD) 5 or more Highest Order ONE of the following medications: *Heparin 5000 units SQ TID (Preferred with Epidurals) *Enoxaparin/Lovenox 40 mg SQ daily (WT < 150 kg, CrCl > 30 mL/min) *Enoxaparin/Lovenox 30 mg SQ daily (WT < 150 kg, CrCl > 10-29 mL/min) *Enoxaparin/Lovenox 30 mg SQ BID (WT < 150 kg, CrCl > 30 mL/min) AND *Sequential Compression Device (SCD) Assessment and Plan - Assessment (1) Syncope Code(s): R55 - Syncope and collapse Status: Acute (2) PNA (pneumonia) Code(s): J18.9 - Pneumonia, unspecified organism Status: Acute (3) COPD (chronic obstructive pulmonary disease) Code(s): J44.9 - Chronic obstructive pulmonary disease, unspecified Status: Acute - Plan A/P: 1. Syncope: acute syncopal event, CT Head w/ no acute findings, images reviewed. Initial trop negative, check serial cardiac enzymes, telemetry, repeat labs in am. PT for eval/tx. Check Echo to eval for valvular abnormality /cardiomyopathy. Follows w/ Dr. Foss, will consult as needed. V/Q pending to eval for possible PE, will follow. 2. PNA: Failed outpatient therapy on Z-pack. CXR w/ left basilar infiltrate despite antibiotics, s/p Cefepime in ER, will continue w/ IV Abx 3. COPD: Chronic Respiratory Failure w/ Acute Exacerbation. Moderate. Solu- Medrol, DuoNeb, Symbicort. Monitor O2. 4. DVT Prophylaxis: SCD/Teds 5. Social work for DC planning as needed. 6. Case discussed at length with the ER physician, lab/record/imaging reviewed by me.
[2018-05-20] MEDS ORDERED: Budesonide-Formoterol 160/4.5 MCG 6 GM Inhaler INH SCH (21:00)
--- NOTE | 2018-05-20 21:31 | NM ---
EXAM DATE: 05/20/2018 9:26 PM EDT AGE/SEX: 83 years / Male INDICATIONS: Syncopal episode. Shortness of breath for one day. CLINICAL DATA: This is the patient's initial encounter. Patient reports that signs and symptoms have been present for 1 day and indicates a pain score of 0/10. MEDICAL/SURGICAL HISTORY: Chronic obstructive pulmonary disease. Carcinoma, skin cancer. None. COMPARISON: [facility], CHEST 1V SINGLE AP, 05/20/2018. . No external comparison. DOSE: 0.98 mCi Tc99m DTPA aerosol 8.8 mCi Tc99m MAA IV TECHNIQUE: Following five minutes of tidal breathing of DTPA aerosol, planar images of the lungs wer e performed in eight projections. The patient was then injected with MAA, and eight-view perfusion s can was performed. FINDINGS: There is a homogeneous pattern of aerosol delivery to the periphery of both lungs. Mild central trap ping. No focal ventilatory defects are seen. The perfusion lung scan demonstrates a homogenous pattern of uptake in both lungs. No segmental or s ubsegmental defects are seen. CONCLUSION: 1. Mild central trapping on the ventilatory images could represent some degree of COPD. 2. Otherwise, low probability scan for pulmonary embolus. Electronically signed by: Anthony Mills MD 05/20/2018 9:30 PM EDT
--- NOTE | 2018-05-20 21:38 | CT ---
EXAM DATE: 05/20/2018 9:30 PM EDT AGE/SEX: 83 years / Male INDICATIONS: Syncopal episode. CLINICAL DATA: This is the patient's initial encounter. Patient reports that signs and symptoms have been present for 1 day and indicates a pain score of 4/10. MEDICAL/SURGICAL HISTORY: Chronic obstructive pulmonary disease. Carcinoma, skin cancer. . RADIATION DOSE: 56.35 CTDI (mGy) COMPARISON: [facility] – [place] BRAIN W/O CONTRAST, 01/03/2018. . TECHNIQUE: CT of the head without contrast. Using automated exposure control and adjustment of the mA and/or kV according to patient size, radiation dose was kept as low as reasonably achievable to ob tain optimal diagnostic quality images. DICOM format image data is available electronically for revi ew and comparison. FINDINGS: Cerebrum: The ventricles are normal for age. Stable, diffuse cortical atrophy. Periventricular and scattered deep white matter tract areas of diminished attenuation are characteristic of moderately se [place] small vessel ischemic demyelination. No evidence of midline shift, mass lesion, hemorrhage or ac negar infarction. No extraaxial fluid collections are seen. Posterior Fossa: The cerebellum and brainstem are intact. The 4th ventricle is midline. The cerebe llopontine angle is unremarkable. Extracranial: The visualized portion of the orbits is intact. Skull: The calvaria is intact. No evidence of skull fracture. CONCLUSION: 1. Stable chronic changes with symmetric cortical atrophy and moderately severe periventricular and deep white matter tracts small vessel ischemic demyelination. 2. Nothing acute. Electronically signed by: Anthony Mills MD 05/20/2018 9:36 PM EDT
[2018-05-21] MEDS: Senna/Docusate Sodium 8.6/50 MG Tablet PO SCH ×3 (00:23→22:03)
[2018-05-21] MEDS: MethylPREDNISolone Sod Succinate Inj 40 MG/ML Vial IV.PUSH SCH ×5 (00:23→22:04)
[2018-05-21] MEDS: Budesonide-Formoterol 160/4.5 MCG 6 GM Inhaler INH SCH ×3 (00:24→22:03)
[2018-05-21] MEDS: Acetaminophen 325 MG Tablet PO PRN ×3 (01:45→22:07)
[2018-05-21 03:18] LABS: Bilirubin,Urine Negative (Negative); Clarity,Urine Hazy (Clear); Color,Urine Amber (Yellw/Straw); Glucose,Urine (UA) Negative (Negative); Hyaline Casts,Urine 3 /lpf (0-3); Leukocyte Esterase,Urine Negative (Negative); Mucus,Urine Few /lpf (Occasional); Nitrite,Urine Negative (Negative); Specific Gravity,Urine 1.035 (1.002-1.035); Squamous Epithelial Cell,Urine <1 /hpf (0-5)
[2018-05-21 08:56] LABS: Hematocrit 37.4 % (39.0-51.0); Hemoglobin 12.4 gm/dL (13.0-17.0); Lymph # (Auto) 0.5 th/mm3 (1.0-4.8); Lymph % (Auto) 5.7 % (9.0-44.0); Mean Corpuscular Hemoglobin 28.9 pg (27.0-34.0); Mean Corpuscular Volume 87.4 fL (80.0-100.0); Mean Platelet Volume 7.1 fL (7.0-11.0); Mono # (Auto) 0.1 th/mm3 (0.0-0.9); Mono % (Auto) 1.7 % (0.0-8.0); Neut # (Auto) 7.6 th/mm3 (1.8-7.7); Neut % (Auto) 92.6 % (16.0-70.0); Platelet Count 198 th/mm3 (150-450); Red Blood Count 4.28 mil/mm3 (4.50-5.90); Red Cell Distribution Width 14.4 % (11.6-17.2); White Blood Count 8.2 th/mm3 (4.0-11.0)
[2018-05-21 09:12] LABS: Albumin 3.3 g/dL (3.4-5.0); Anion Gap 10 meq/L (5-15); Aspartate Aminotransferase 19 U/L (15-37); Blood Urea Nitrogen 39 mg/dL (7-18); Calcium 9.2 mg/dL (8.5-10.1); Carbon Dioxide 24.1 meq/L (21.0-32.0); Chloride 104 meq/L (98-107); Glomerular Filtration Rate 43 mL/min (>89); Glucose,Random 229 mg/dL (74-106); Potassium 4.1 meq/L (3.5-5.1); Sodium 138 meq/L (136-145)
[2018-05-21 09:13] LABS: Alanine Aminotransferase 23 U/L (12-78)
[2018-05-21 09:16] LABS: Alkaline Phosphatase 82 U/L (45-117); Total Protein 6.2 g/dL (6.4-8.2)
--- NOTE | 2018-05-21 11:02 | ECG ---
Date Performed: 05/20/2018 Time Performed: 19:02:59 PTAGE: 83 years EKG: Sinus rhythm MARKED RIGHT AXIS DEVIATION RIGHT BUNDLE BRANCH BLOCK ABNORMAL ECG PREVIOUS TRACING 01/04/2018 09.25 Since the previous tracing, no significant change noted DOCTOR: Ronal Rodrigez Interpretating Date/Time 05/21/2018 11:01:56
--- NOTE | 2018-05-21 11:06 | P.PN ---
Subjective Interval history: Follow-up community-acquired pneumonia failed outpatient treatment/syncope May 21, 2018-patient seen and examined, no more syncopal episodes since admission. Reports some improvement of shortness of breath. Complains of right sided rib cage pain. Patient stated he no longer wants discharge to SNF. Physical Exam Vital signs: Vital Signs 05/20/18 19:01 05/20/18 19:23 05/20/18 20:06 Temperature 97.8 F Pulse Rate 73 75 82 Respiratory Rate 30 H 16 Blood Pressure 153/65 H Pulse Oximetry 97 96 95 05/20/18 20:16 05/20/18 23:45 05/20/18 23:51 Temperature Pulse Rate 84 96 H Respiratory Rate 16 18 Blood Pressure Pulse Oximetry 05/21/18 00:00 05/21/18 02:15 05/21/18 03:57 Temperature 98.3 F Pulse Rate 96 H 96 H 78 Respiratory Rate 20 24 Blood Pressure 150/65 H Pulse Oximetry 94 L 05/21/18 04:00 05/21/18 08:00 Temperature 98.5 F 98.3 F Pulse Rate 63 82 Respiratory Rate 20 18 Blood Pressure 143/64 H 159/75 H Pulse Oximetry 96 98 Intake & Output 05/20/18 05/21/18 05/21/18 18:59 06:59 18:59 Intake Total 340 / 340 Balance 340 / 340 Weight 87.4 kg Intake: IV 100 / 100 Maxipime Inj 2,000 MG In NS Inj 100 / 100 100 ML @ 200 mls/hr IV.SIG ONCE ONE Rx#:[id number] Oral 240 / 240 Other: # Voids 1 Date of Last Bowel Movement 05/21/18 Weight On Admission 87 kg Narrative: GENERAL: NAD SKIN: Warm and dry. HEAD: Normocephalic. EYES: No scleral icterus. No injection or drainage. NECK: Supple, trachea midline. No JVD or lymphadenopathy. CARDIOVASCULAR: Regular rate and rhythm without murmurs, gallops, or rubs. RESPIRATORY: Breath sounds equal bilaterally. No accessory muscle use. GASTROINTESTINAL: Abdomen soft, non-tender, nondistended. MUSCULOSKELETAL: No cyanosis, or edema. BACK: Nontender without obvious deformity. No CVA tenderness. Results - Labs CBC & Chem 7: 05/21/18 07:25 05/21/18 07:25 Laboratory Results - last 24 hr 05/20/18 05/20/18 05/20/18 19:15 19:15 19:15 WBC 13.3 H RBC 4.54 Hgb 13.0 Hct 39.6 MCV 87.3 MCH 28.7 MCHC 32.9 RDW 13.7 Plt Count 243 MPV 6.8 L Neut % (Auto) 84.1 H Lymph % (Auto) 8.1 L [place] % (Auto) 6.2 Eos % (Auto) 1.4 Baso % (Auto) 0.2 Neut # (Auto) 11.2 H Lymph # (Auto) 1.1 [place] # (Auto) 0.8 Eos # (Auto) 0.2 Baso # (Auto) 0.0 WBC Differential . Differential Comment Auto diff final PT INR APTT Sodium 142 Potassium 3.6 Chloride 107 Carbon Dioxide 28.6 Anion Gap 6 BUN 33 H Creatinine 1.47 H Estimated GFR 46 L Random Glucose 156 H Calcium 8.6 Total Bilirubin 0.4 AST 16 ALT 21 Alkaline Phosphatase 78 Troponin I Less than 0.02 L B-Natriuretic Peptide 71 Total Protein 6.3 L Albumin 3.4 Urine Color Urine Clarity Urine pH Ur Specific Hecker Urine Protein Urine Glucose (UA) Urine Ketones Urine Occult Blood Urine Nitrate Urine Bilirubin Urine Urobilinogen Ur Leukocyte Esterase Urine RBC Urine WBC Ur Squamous Epith Cells Hyaline Casts Urine Mucus Micro UA Comment Urine Culture Comments 05/20/1818 05/21/18 19:15 00:50 01:45 WBC RBC Hgb Hct MCV MCH MCHC RDW Plt Count MPV Neut % (Auto) Lymph % (Auto) [place] % (Auto) Eos % (Auto) Baso % (Auto) Neut # (Auto) Lymph # (Auto) [place] # (Auto) Eos # (Auto) Baso # (Auto) WBC Differential Differential Comment PT 10.7 INR 1.1 APTT 21.0 L Sodium Potassium Chloride Carbon Dioxide Anion Gap BUN Creatinine Estimated GFR Random Glucose Calcium Total Bilirubin AST ALT Alkaline Phosphatase Troponin I Less than 0.02 L B-Natriuretic Peptide Total Protein Albumin Urine Color Tatyana Urine Clarity Hazy H Urine pH 5.0 Ur Specific Hecker 1.035 Urine Protein 30 H Urine Glucose (UA) Negative Urine Ketones Trace Urine Occult Blood Negative Urine Nitrate Negative Urine Bilirubin Negative Urine Urobilinogen 2.0 H Ur Leukocyte Esterase Negative Urine RBC 2 Urine WBC 8 H Ur Squamous Epith Cells <1 Hyaline Casts 3 Urine Mucus Few H Micro UA Comment Culture not ind Urine Culture Comments Culture not ind 05/21/18 05/21/18 05/21/18 07:25 07:25 07:25 WBC 8.2 RBC 4.28 L Hgb 12.4 L Hct 37.4 L MCV 87.4 MCH 28.9 MCHC 33.0 RDW 14.4 Plt Count 198 MPV 7.1 Neut % (Auto) 92.6 H Lymph % (Auto) 5.7 L [place] % (Auto) 1.7 Eos % (Auto) 0.0 Baso % (Auto) 0.0 Neut # (Auto) 7.6 Lymph # (Auto) 0.5 L [place] # (Auto) 0.1 Eos # (Auto) 0.0 Baso # (Auto) 0.0 WBC Differential . Differential Comment Auto diff final PT INR APTT Sodium 138 Potassium 4.1 Chloride 104 Carbon Dioxide 24.1 Anion Gap 10 BUN 39 H Creatinine 1.54 H Estimated GFR 43 L Random Glucose 229 H Calcium 9.2 Total Bilirubin 0.4 AST 19 ALT 23 Alkaline Phosphatase 82 Troponin I Less than 0.02 L B-Natriuretic Peptide Total Protein 6.2 L Albumin 3.3 L Urine Color Urine Clarity Urine pH Ur Specific Hecker Urine Protein Urine Glucose (UA) Urine Ketones Urine Occult Blood Urine Nitrate Urine Bilirubin Urine Urobilinogen Ur Leukocyte Esterase Urine RBC Urine WBC Ur Squamous Epith Cells Hyaline Casts Urine Mucus Micro UA Comment Urine Culture Comments - Imaging Impressions Chest X-Ray 05/20/18 19:09 CONCLUSION: Left basilar atelectasis/infiltrate. Head CT 05/20/18 19:09 CONCLUSION: 1. Stable chronic changes with symmetric cortical atrophy and moderately severe periventricular and deep white matter tracts small vessel ischemic demyelination. 2. Nothing acute. Pulmonary Perfusion Imaging 05/20/18 19:56 CONCLUSION: 1. Mild central trapping on the ventilatory images could represent some degree of COPD. 2. Otherwise, low probability scan for pulmonary embolus. Assessment and Plan - Assessment (1) Syncope Code(s): R55 - Syncope and collapse Status: Acute (2) PNA (pneumonia) Code(s): J18.9 - Pneumonia, unspecified organism Status: Acute (3) COPD (chronic obstructive pulmonary disease) Code(s): J44.9 - Chronic obstructive pulmonary disease, unspecified Status: Acute - Plan 83-year-old man with Community-acquired pneumonia; failed outpatient therapy Currently on cefepime pending culture report Continue with DuoNeb as needed, maintain oxygen saturation above 92% Syncope: acute syncopal event, CT Head w/ no acute findings, images reviewed. Initial trop negative, check serial cardiac enzymes, telemetry, repeat labs in am. PT for eval/tx. Check Echo to eval for valvular abnormality/ cardiomyopathy. Follows w/ Dr. Foss, will consult as needed. V/Q negative for PE COPD: Chronic Respiratory Failure w/ Acute Exacerbation. Moderate. Solu- Medrol, DuoNeb, Symbicort. Monitor O2. DVT Prophylaxis: SCD/Teds
--- NOTE | 2018-05-21 11:07 | P.DCO ---
- Physical Therapy Order: Evaluate and treat - Home Health Nursing Order: Signs/symptoms of disease process - Certification I have seen patient Dany Jessica on 05/21/18. My clinical findings support the need for the requested home health care services because: Patient has SOB, Deconditioned with increased weakness I certify that my clinical findings support that this patient is homebound because: Hx COPD - exertion dyspnea/weakness
--- NOTE | 2018-05-21 14:51 | ECHRPT ---
Indication: CARDIOMYOPATHY CONCLUSIONS Mildly dilated left ventricle. Mild concentric left ventricular hypertrophy. The left ventricular systolic function is low normal with an estimated ejection fraction in the rang e of 50- 55%. The left atrial size is mildly dilated. The right atrial size is mildly dilated. Trace mitral valve regurgitation. There is trace tricuspid valve regurgitation. The estimated pulmonary arterial pressure is 26.6 mmHg. BP: / HR: Rhythm: Sinus MEASUREMENTS (Male / Female) Normal Values Technical Quality:Fair 2D ECHO LV Diastolic Diameter PLAX 6.3 cm 4.2 - 5.9 / 3.9 - 5.3 cm LV Systolic Diameter PLAX 4.4 cm IVS Diastolic Thickness 1.1 cm 0.6 - 1.0 / 0.6 - 0.9 cm LVPW Diastolic Thickness 1.1 cm 0.6 - 1.0 / 0.6 - 0.9 cm LV Relative Wall Thickness 0.3 RV Internal Dim ED PLAX 2.4 cm LVOT Diameter 2.5 cm Aortic Root Diameter 3.7 cm LA Systolic Diameter LX 2.9 cm 3.0 - 4.0 / 2.7 - 3.8 cm M-MODE AV Cusp Separation MM 2.0 cm DOPPLER AV Peak Velocity 172.0 cm/s AV Peak Gradient 11.8 mmHg AV Mean Gradient 7.0 mmHg AV Velocity Time Integral 32.9 cm LVOT Peak Velocity 86.5 cm/s LVOT Peak Gradient 3.0 mmHg LVOT Velocity Time Integral 15.9 cm AV Area Cont Eq vti 2.4 cm AV Area Cont Eq pk 2.5 cm Mitral E Point Velocity 72.6 cm/s Mitral A Point Velocity 120.0 cm/s Mitral E to A Ratio 0.6 LV E' Lateral Velocity 6.8 cm/s Mitral E to LV E' Lateral Ratio 10.6 LV E' Septal Velocity 5.7 cm/s Mitral E to LV E' Septal Ratio 12.8 TR Peak Velocity 204.0 cm/s TR Peak Gradient 16.6 mmHg Right Atrial Pressure 10.0 mmHg Pulmonary Artery Systolic Pressu 26.6 mmHg Right Ventricular Systolic Press 26.6 mmHg PV Peak Velocity 60.9 cm/s PV Peak Gradient 1.5 mmHg FINDINGS LEFT VENTRICLE Mildly dilated left ventricle. Mild concentric left ventricular hypertrophy. The left ventricular systolic function is low normal with an estimated ejection fraction in the rang e of 50- 55%. There is diffuse global hypokinesis with distinct regional wall motion abnormalities. RIGHT VENTRICLE Normal right ventricular size and systolic function. LEFT ATRIUM The left atrial size is mildly dilated. RIGHT ATRIUM The right atrial size is mildly dilated. ATRIAL SEPTUM No atrial level shunt is demonstrated by color flow Doppler interrogation. AORTA The aortic root and proximal ascending aorta are not well visualized. MITRAL VALVE Trace mitral valve regurgitation. AORTIC VALVE Trileaflet aortic valve. No aortic valve stenosis or regurgitation. TRICUSPID VALVE There is trace tricuspid valve regurgitation. The estimated pulmonary arterial pressure is 26.6 mmHg. PULMONARY VALVE No pulmonary valve regurgitation or stenosis. VESSELS The inferior vena cava is normal in size. PERICARDIUM No pericardial effusion. Justus Vernon MD, FACC (Electronically Signed) Final Date:21 May 2018 14:50
[2018-05-21] MEDS: amLODIPine 5 MG Tablet PO SCH (22:02)
[2018-05-22] MEDS: MethylPREDNISolone Sod Succinate Inj 40 MG/ML Vial IV.PUSH SCH ×3 (03:44→20:24)
[2018-05-22] MEDS: Acetaminophen 325 MG Tablet PO PRN ×4 (08:47→22:02)
[2018-05-22] MEDS: amLODIPine 5 MG Tablet PO SCH (08:47)
[2018-05-22] MEDS: Budesonide-Formoterol 160/4.5 MCG 6 GM Inhaler INH SCH ×2 (08:48→20:24)
[2018-05-22] MEDS: Senna/Docusate Sodium 8.6/50 MG Tablet PO SCH ×2 (08:48→20:24)
--- NOTE | 2018-05-22 10:34 | P.PN ---
Subjective Interval history: Follow-up community-acquired pneumonia failed outpatient treatment/syncope May 21, 2018-patient seen and examined, no more syncopal episodes since admission. Reports some improvement of shortness of breath. Complains of right sided rib cage pain. Patient stated he no longer wants discharge to SNF. May 22, 2018-patient seen and examined, currently on 4 L nasal cannula with some worsening shortness of breath. Afebrile. BP labile. Complains of right shoulder and right hip pain. Physical Exam Vital signs: Vital Signs 05/21/18 11:17 05/21/18 12:00 05/21/18 16:00 Temperature 98.5 F 98.3 F Pulse Rate 89 85 Respiratory Rate 18 18 Blood Pressure 156/65 H 169/78 H Pulse Oximetry 98 97 96 05/21/18 20:00 05/21/18 21:36 05/21/18 23:45 Temperature 98.1 F Pulse Rate 75 76 75 Respiratory Rate 20 16 Blood Pressure 177/80 H Pulse Oximetry 97 96 05/22/18 00:00 05/22/18 04:00 05/22/18 07:55 Temperature 97.8 F 97.8 F Pulse Rate 74 71 68 Respiratory Rate 20 20 Blood Pressure 153/69 H 153/67 H Pulse Oximetry 97 98 05/22/18 09:46 Temperature Pulse Rate Respiratory Rate Blood Pressure Pulse Oximetry 98 Intake & Output 05/21/18 05/22/18 05/22/18 18:59 06:59 18:59 Intake Total 840 / 840 270 / 270 Output Total 650 / 650 Balance 840 / 840 -380 / -380 Weight 88.2 kg Intake: IV 150 / 150 Levaquin 750 mg Premix Inj 150 150 / 150 ML @ 100 mls/hr IV.SIG Q24H [facility] Rx#:[id number] Oral 840 / 840 120 / 120 Output: Urine 650 / 650 Other: # Voids 3 Date of Last Bowel Movement 05/21/18 # Bowel Movements 1 Narrative: GENERAL: NAD SKIN: Warm and dry. HEAD: Normocephalic. EYES: No scleral icterus. No injection or drainage. NECK: Supple, trachea midline. No JVD or lymphadenopathy. CARDIOVASCULAR: Regular rate and rhythm without murmurs, gallops, or rubs. RESPIRATORY: Breath sounds equal bilaterally. No accessory muscle use. GASTROINTESTINAL: Abdomen soft, non-tender, nondistended. MUSCULOSKELETAL: No cyanosis, or edema. BACK: Nontender without obvious deformity. No CVA tenderness. Results - Labs CBC & Chem 7: 05/21/18 07:25 05/21/18 07:25 Microbiology 05/20/18 19:05 Blood - Peripheral Aerobic Blood Culture - Preliminary No growth in 1 day 05/20/18 19:05 Blood - Peripheral Anaerobic Blood Culture - Preliminary No growth in 1 day 05/20/18 19:15 Blood - Peripheral Aerobic Blood Culture - Preliminary No growth in 1 day 05/20/18 19:15 Blood - Peripheral Anaerobic Blood Culture - Preliminary No growth in 1 day Assessment and Plan - Assessment (1) Syncope Code(s): R55 - Syncope and collapse Status: Acute (2) PNA (pneumonia) Code(s): J18.9 - Pneumonia, unspecified organism Status: Acute (3) COPD (chronic obstructive pulmonary disease) Code(s): J44.9 - Chronic obstructive pulmonary disease, unspecified Status: Acute - Plan 83-year-old man with Community-acquired pneumonia; failed outpatient therapy Currently on cefepime pending culture report Continue with DuoNeb as needed, maintain oxygen saturation above 92% Syncope: acute syncopal event, CT Head w/ no acute findings, images reviewed. Initial trop negative, check serial cardiac enzymes, telemetry, repeat labs in am. PT for eval/tx. Check Echo to eval for valvular abnormality/ cardiomyopathy. Follows w/ Dr. Foss, will consult as needed. V/Q negative for PE COPD: Chronic Respiratory Failure w/ Acute Exacerbation. Moderate. Solu- Medrol however switch to 40mg BID, DuoNeb, Symbicort. Monitor O2. Hypertension: Change Norvasc to 10mg daily and give additional 5 mg Norvasc x 1 now DVT Prophylaxis: SCD/Teds
[2018-05-22] MEDS ORDERED: amLODIPine 5 MG Tablet PO ONE (10:39)
[2018-05-23 08:18] LABS: Albumin 2.9 g/dL (3.4-5.0); Anion Gap 9 meq/L (5-15); Aspartate Aminotransferase 14 U/L (15-37); Blood Urea Nitrogen 30 mg/dL (7-18); Calcium 9.2 mg/dL (8.5-10.1); Carbon Dioxide 26.7 meq/L (21.0-32.0); Chloride 104 meq/L (98-107); Glomerular Filtration Rate 61 mL/min (>89); Glucose,Random 271 mg/dL (74-106); Hematocrit 33.6 % (39.0-51.0); Hemoglobin 11.2 gm/dL (13.0-17.0); Lymph # (Auto) 1.1 th/mm3 (1.0-4.8); Lymph % (Auto) 11.6 % (9.0-44.0); Mean Corpuscular HGB Conc 33.4 % (32.0-36.0); Mean Corpuscular Volume 86.8 fL (80.0-100.0); Mean Platelet Volume 6.9 fL (7.0-11.0); Mono # (Auto) 0.5 th/mm3 (0.0-0.9); Mono % (Auto) 5.6 % (0.0-8.0); Neut # (Auto) 7.6 th/mm3 (1.8-7.7); Neut % (Auto) 82.8 % (16.0-70.0); Platelet Count 174 th/mm3 (150-450); Potassium 4.2 meq/L (3.5-5.1); Red Blood Count 3.87 mil/mm3 (4.50-5.90); Red Cell Distribution Width 13.8 % (11.6-17.2); Sodium 140 meq/L (136-145); White Blood Count 9.1 th/mm3 (4.0-11.0)
[2018-05-23 08:19] LABS: Alanine Aminotransferase 23 U/L (12-78)
[2018-05-23 08:22] LABS: Alkaline Phosphatase 64 U/L (45-117); Total Protein 5.5 g/dL (6.4-8.2)
[2018-05-23] MEDS: MethylPREDNISolone Sod Succinate Inj 40 MG/ML Vial IV.PUSH SCH ×2 (08:26→20:52)
[2018-05-23] MEDS: amLODIPine 10 MG Tablet PO SCH (08:26)
[2018-05-23] MEDS: Acetaminophen 325 MG Tablet PO PRN ×3 (08:26→17:42)
[2018-05-23] MEDS: Senna/Docusate Sodium 8.6/50 MG Tablet PO SCH ×2 (08:28→20:52)
[2018-05-23] MEDS: Budesonide-Formoterol 160/4.5 MCG 6 GM Inhaler INH SCH ×2 (08:29→20:53)
[2018-05-23] MEDS ORDERED: Dextrose 50% in Water 50 ML Vial IV.PUSH PRN (10:48)
--- NOTE | 2018-05-23 10:55 | P.PN ---
Subjective Interval history: Follow-up community-acquired pneumonia failed outpatient treatment/syncope May 21, 2018-patient seen and examined, no more syncopal episodes since admission. Reports some improvement of shortness of breath. Complains of right sided rib cage pain. Patient stated he no longer wants discharge to SNF. May 22, 2018-patient seen and examined, currently on 4 L nasal cannula with some worsening shortness of breath. Afebrile. BP labile. Complains of right shoulder and right hip pain. May 23, 2018-patient seen and examined, quite short of breath and wheezing this morning. Afebrile. No other issues Physical Exam Vital signs: Vital Signs 05/22/18 12:00 05/22/18 15:54 05/22/18 16:00 Temperature 98.1 F 98.4 F Pulse Rate 77 77 90 Respiratory Rate 18 18 24 Blood Pressure 150/66 H 179/82 H Pulse Oximetry 96 96 05/22/18 17:37 05/22/18 20:00 05/22/18 20:45 Temperature 98.3 F Pulse Rate 80 81 79 Respiratory Rate 18 20 Blood Pressure 138/64 Pulse Oximetry 96 05/23/18 00:00 05/23/18 04:00 05/23/18 08:00 Temperature 97.4 F L 97.7 F 97.2 F L Pulse Rate 77 67 68 Respiratory Rate 18 18 14 Blood Pressure 128/60 135/62 164/73 H Pulse Oximetry 94 L 94 L 97 05/23/18 08:59 05/23/18 09:00 Temperature Pulse Rate 70 70 Respiratory Rate 18 Blood Pressure Pulse Oximetry 94 L Intake & Output 05/22/18 05/23/18 05/23/18 18:59 06:59 18:59 Intake Total 100 / 100 880 / 880 Output Total 900 / 900 Balance 100 / 100 -20 / -20 Weight 90.1 kg Intake: IV 100 / 100 100 / 100 Maxipime Inj 1,000 MG In NS Inj 100 / 100 100 / 100 100 ML @ 200 mls/hr IV.SIG Q12H [facility] Rx#:[id number] Oral 780 / 780 Output: Urine 900 / 900 Other: Date of Last Bowel Movement 05/21/18 Narrative: GENERAL: NAD SKIN: Warm and dry. HEAD: Normocephalic. EYES: No scleral icterus. No injection or drainage. NECK: Supple, trachea midline. No JVD or lymphadenopathy. CARDIOVASCULAR: Regular rate and rhythm without murmurs, gallops, or rubs. RESPIRATORY: Breath sounds decrease bilaterally. No accessory muscle use. GASTROINTESTINAL: Abdomen soft, non-tender, nondistended. MUSCULOSKELETAL: No cyanosis, or edema. BACK: Nontender without obvious deformity. No CVA tenderness. Results - Labs CBC & Chem 7: 05/23/18 06:35 05/23/18 06:35 Laboratory Results - last 24 hr 05/23/18 05/23/18 06:35 06:35 WBC 9.1 RBC 3.87 L Hgb 11.2 L Hct 33.6 L MCV 86.8 MCH 29.0 MCHC 33.4 RDW 13.8 Plt Count 174 MPV 6.9 L Neut % (Auto) 82.8 H Lymph % (Auto) 11.6 [place] % (Auto) 5.6 Eos % (Auto) 0.0 Baso % (Auto) 0.0 Neut # (Auto) 7.6 Lymph # (Auto) 1.1 [place] # (Auto) 0.5 Eos # (Auto) 0.0 Baso # (Auto) 0.0 WBC Differential . Differential Comment Auto diff final Sodium 140 Potassium 4.2 Chloride 104 Carbon Dioxide 26.7 Anion Gap 9 BUN 30 H Creatinine 1.14 Estimated GFR 61 L Random Glucose 271 H Calcium 9.2 Total Bilirubin 0.3 AST 14 L ALT 23 Alkaline Phosphatase 64 Total Protein 5.5 L D Albumin 2.9 L Microbiology 05/20/18 19:05 Blood - Peripheral Aerobic Blood Culture - Preliminary No growth in 2 days 05/20/18 19:05 Blood - Peripheral Anaerobic Blood Culture - Preliminary No growth in 2 days 05/20/18 19:15 Blood - Peripheral Aerobic Blood Culture - Preliminary No growth in 2 days 05/20/18 19:15 Blood - Peripheral Anaerobic Blood Culture - Preliminary No growth in 2 days Assessment and Plan - Assessment (1) Syncope Code(s): R55 - Syncope and collapse Status: Acute (2) PNA (pneumonia) Code(s): J18.9 - Pneumonia, unspecified organism Status: Acute (3) COPD (chronic obstructive pulmonary disease) Code(s): J44.9 - Chronic obstructive pulmonary disease, unspecified Status: Acute - Plan 83-year-old man with Community-acquired pneumonia; failed outpatient therapy Currently on cefepime Continue with DuoNeb as needed, maintain oxygen saturation above 92% Syncope: acute syncopal event, CT Head w/ no acute findings, images reviewed. Initial trop negative, check serial cardiac enzymes, telemetry, repeat labs in am. PT for eval/tx. Follows w/ Dr. Foss, will consult as needed. 2D echo with EF 50-55%. V/Q negative for PE COPD: Chronic Respiratory Failure w/ Acute Exacerbation. Moderate. DuoNeb scheduled and as needed, Solu-Medrol 40mg BID, DuoNeb, Symbicort. Monitor O2. Hypertension: On [id number] daily DVT Prophylaxis: SCD/Teds
[2018-05-23] MEDS: Insulin NovoLOG Aspart Correctional Sugar Inj SQ SCH ×3 (13:22→20:53)
[2018-05-24] MEDS: MethylPREDNISolone Sod Succinate Inj 40 MG/ML Vial IV.PUSH SCH ×2 (08:10→22:09)
[2018-05-24] MEDS: Senna/Docusate Sodium 8.6/50 MG Tablet PO SCH ×2 (08:11→22:11)
[2018-05-24] MEDS: amLODIPine 10 MG Tablet PO SCH (08:11)
[2018-05-24] MEDS: Budesonide-Formoterol 160/4.5 MCG 6 GM Inhaler INH SCH ×2 (08:11→22:17)
--- NOTE | 2018-05-24 11:00 | P.PN ---
Subjective Interval history: Follow-up community-acquired pneumonia failed outpatient treatment/syncope May 21, 2018-patient seen and examined, no more syncopal episodes since admission. Reports some improvement of shortness of breath. Complains of right sided rib cage pain. Patient stated he no longer wants discharge to SNF. May 22, 2018-patient seen and examined, currently on 4 L nasal cannula with some worsening shortness of breath. Afebrile. BP labile. Complains of right shoulder and right hip pain. May 23, 2018-patient seen and examined, quite short of breath and wheezing this morning. Afebrile. No other issues May 24, 2018-patient seen and examined, has bilateral puffy eye and swollen and reports some throat discomfort without any stridor complain of shortness of breath. Patient was treated with Benadryl 1 around 5 AM Physical Exam Vital signs: Vital Signs 05/23/18 12:00 05/23/18 12:15 05/23/18 16:00 Temperature 97.9 F 97.8 F Pulse Rate 94 H 70 79 Respiratory Rate 16 18 14 Blood Pressure 156/70 H 145/63 H Pulse Oximetry 95 94 L 05/23/18 19:44 05/23/18 19:45 05/23/18 20:00 Temperature 98.1 F Pulse Rate 76 75 Respiratory Rate 17 18 Blood Pressure 155/70 H Pulse Oximetry 96 97 05/24/18 00:00 05/24/18 04:00 05/24/18 06:03 Temperature 98.4 F 97.9 F Pulse Rate 75 71 78 Respiratory Rate 18 18 19 Blood Pressure 154/72 H 164/72 H Pulse Oximetry 96 95 05/24/18 06:25 Temperature Pulse Rate Respiratory Rate Blood Pressure Pulse Oximetry 96 Intake & Output 05/23/18 05/24/18 05/24/18 18:59 06:59 18:59 Intake Total 100 / 100 880 / 880 Output Total 700 / 700 Balance 100 / 100 180 / 180 Intake: IV 100 / 100 100 / 100 Maxipime Inj 1,000 MG In NS Inj 100 / 100 100 / 100 100 ML @ 200 mls/hr IV.SIG Q12H [facility] Rx#:[id number] Oral 780 / 780 Output: Urine 700 / 700 Other: Date of Last Bowel Movement 05/23/18 Narrative: GENERAL: NAD SKIN: Warm and dry. HEAD: Normocephalic. EYES: No scleral icterus. No injection or drainage. But bilateral puffy and swollen eyelids NECK: Supple, trachea midline. No JVD or lymphadenopathy. CARDIOVASCULAR: Regular rate and rhythm without murmurs, gallops, or rubs. RESPIRATORY: Breath sounds decrease bilaterally. No accessory muscle use. GASTROINTESTINAL: Abdomen soft, non-tender, nondistended. MUSCULOSKELETAL: No cyanosis, or edema. BACK: Nontender without obvious deformity. No CVA tenderness. Results - Labs CBC & Chem 7: 05/23/18 06:35 05/23/18 06:35 Laboratory Results - last 24 hr 05/23/18 05/23/18 05/23/18 11:21 16:58 19:32 POC Glucose 383 H 336 H 195 H Microbiology 05/20/18 19:05 Blood - Peripheral Aerobic Blood Culture - Preliminary No growth in 3 days 05/20/18 19:05 Blood - Peripheral Anaerobic Blood Culture - Preliminary No growth in 3 days 05/20/18 19:15 Blood - Peripheral Aerobic Blood Culture - Preliminary No growth in 3 days 05/20/18 19:15 Blood - Peripheral Anaerobic Blood Culture - Preliminary No growth in 3 days Assessment and Plan - Assessment (1) Syncope Code(s): R55 - Syncope and collapse Status: Acute (2) PNA (pneumonia) Code(s): J18.9 - Pneumonia, unspecified organism Status: Acute (3) COPD (chronic obstructive pulmonary disease) Code(s): J44.9 - Chronic obstructive pulmonary disease, unspecified Status: Acute - Plan 83-year-old man with Community-acquired pneumonia; failed outpatient therapy Currently on cefepime, switch to azithromycin on discharge Continue with DuoNeb as needed, maintain oxygen saturation above 92% Syncope: acute syncopal event, CT Head w/ no acute findings, images reviewed. Initial trop negative, check serial cardiac enzymes, telemetry, repeat labs in am. PT for eval/tx. Follows w/ Dr. Foss, will consult as needed. 2D echo with EF 50-55%. V/Q negative for PE COPD: Chronic Respiratory Failure w/ Acute Exacerbation. Moderate. DuoNeb scheduled and as needed, Solu-Medrol 40mg BID, DuoNeb, Symbicort. Monitor O2. Hypertension: On [id number] daily Anaphylactic reaction? Treat per protocol with Zantac, Benadryl. Consider IV fluid hydration Patient is able to protect his airway DVT Prophylaxis: SCD/Teds Discharge Planning: Likely discharge home next 48 hours
[2018-05-24] MEDS: Insulin NovoLOG Aspart Correctional Sugar Inj SQ SCH ×4 (11:48→22:16)
[2018-05-24] MEDS ORDERED: Famotidine 20 MG Tablet PO ONE (12:30)
--- NOTE | 2018-05-24 16:58 | XR ---
EXAM DATE: 05/24/2018 4:29 PM EDT AGE/SEX: 83 years / Male INDICATIONS: Cough CLINICAL DATA: This is the patient's subsequent encounter. Patient reports that signs and symptoms h ave been present for 4 - 6 days and indicates a pain score of 0/10. MEDICAL/SURGICAL HISTORY: . Myocardial infarction. Emphysema. Chronic obstructive pulmonary dis ease. Macular degeneration. CVA. Legally blind. Irregular heartbeat. Pneumonia. Tobacco use. Anticoag ulant therapy. . . Cataract surgery. Cardiac cath. [employer] and inguinal hernia repairs. Right butt cy st COMPARISON: [facility], CHEST 1V SINGLE AP, 05/20/2018. . FINDINGS: There is severe subcutaneous emphysema bilaterally which is new when compared with the prior exam wit h gas in the muscles and in the soft tissues both the lateral chest wall and supraclavicular regions. No definite pneumothorax is seen. There are no signs of tension. There is no evidence of pneumonia. No pleural effusions are identified. CONCLUSION: Severe subcutaneous emphysema new when compared with the prior study without pneumothorax. Electronically signed by: Luca Glass MD 05/24/2018 4:56 PM EDT
[2018-05-24 18:35] LABS: ABG Base Excess 2.5 mmol/L (-2-2); ABG PCO2 38 mmHg (38-42); ABG PO2 81 mmHg (61-120)
--- NOTE | 2018-05-24 18:58 | MB ---
cc: Alec Landon MD DATE: 05/24/2018 REASON FOR CONSULTATION: Respiratory insufficiency and subcutaneous emphysema. HISTORY OF PRESENT ILLNESS: This is an 83-year-old white male who has a history of hypertension, CHF, COPD and skin cancer, who was brought to the emergency room following a near syncopal episode. The patient apparently was walking to the bathroom and fell with a severe dizzy attack and suffered a contusion to the whole right side of his body including the right shoulder, right chest and right hip areas. He was complaining of pain and some shortness of breath and thus was brought to the emergency room. A chest x-ray showed left basilar atelectasis with a possible infiltrate. He was then sent for a V/Q lung scan, which was unremarkable and had low probability for PE. He was started on IV cefepime and has been on nebulized bronchodilators. He does have a longstanding history of smoking for over 50 years. The patient since admission has developed severe subcutaneous emphysema ranging from the right lower chest up to the right shoulder, the whole chest wall including the face and the eyelids and states that he has some shortness of breath and wheezing, but no hemoptysis, fevers or chills. PAST MEDICAL HISTORY: Includes hypertension, history of COPD with emphysema, history of pneumonia and a history of a syncopal episode. He has had skin cancers removed in the past. HABITS: The patient smoked 1/2 to 1 pack per day and has done so for 52 years until this admission. Alcohol use, none recently. FAMILY HISTORY: Father of an aneurysm. Mother of old age. ALLERGIES: CHANTIX. REVIEW OF SYSTEMS: The patient complains of shortness of breath, wheezing. He has facial swelling from subcutaneous emphysema and has some epigastric distress. No nausea. He has had leg swelling. No calf muscle pains. She has some joint pains and has generalized weakness. PHYSICAL EXAMINATION: GENERAL: This is a moderately obese, elderly man whose face is puffy with subcutaneous emphysema. He has a dressing over his right forehead from a recent skin cancer removal. The eyelids are shut from subcutaneous air that extends from the face down into the neck and to the right chest wall as well as the left chest wall and upper abdomen. LUNGS: Movements of the chest are diminished. There are wheezes scattered bilaterally and prolonged expirations. CARDIOVASCULAR: Heart sounds are regular. S1 and S2 with no murmur. ABDOMEN: Soft and protuberant with no organomegaly. The bowel sounds are active. EXTREMITIES: Reveal no edema. Peripheral pulses are diminished. NEUROLOGIC: Reflexes are 1+ with no gross motor deficits. Cranial nerves are grossly intact. RECTAL: Deferred. SKIN: No lesions observed. IMPRESSION: 1. Right chest wall contusion with a right pneumothorax and subcutaneous emphysema. 2. Chronic obstructive pulmonary disease with emphysema and chronic bronchitis. 3. Syncopal episode. 4. Acute exacerbation of chronic obstructive pulmonary disease. 5. Hypertension. PLAN: The patient will be sent for a CT scan of the chest without contrast. Nebulized DuoNeb solution added every 6 hours. Continue with antibiotic coverage including cefepime 1 gram IV q.8 hours. Solu-Medrol 40 mg IV q.8 hours was added and prednisone put on hold. We will get interventional radiology to see if they can place a chest tube on the right side. Further evaluation including a thoracic surgery evaluation may be necessary if the subcutaneous emphysema does not resolve. We will place him on O2 at 4 liters and a blood gas study will be obtained. Incentive spirometry every 2 hours at the bedside. Thank you for this consultation. Alec Landon MD VJD/bartolo , 06:01 PM , 06:15 PM
--- NOTE | 2018-05-24 21:12 | CT ---
EXAM DATE: 05/24/2018 9:01 PM EDT AGE/SEX: 83 years / Male INDICATIONS: Evaluate pneumothorax and subcutaneous emphysema. CLINICAL DATA: This is the patient's initial encounter. Patient reports that signs and symptoms have been present for 1 day and indicates a pain score of 4/10. MEDICAL/SURGICAL HISTORY: Chronic obstructive pulmonary disease. Pneumonia. None. RADIATION DOSE: 11.96 CTDI (mGy) COMPARISON: [facility], CHEST 1V SINGLE AP, 05/24/2018. . TECHNIQUE: Multiple contiguous axial images were obtained through the chest without contrast. Image s were obtained in suspended respiration using multiple row detector helical technique. Using automa edilma exposure control and adjustment of the mA and/or kV according to patient size, radiation dose was kept as low as reasonably achievable to obtain optimal diagnostic quality images. DICOM format imag e data is available electronically for review and comparison. FINDINGS: Conventional radiographs are demonstrated extensive subcutaneous emphysema. The CT scan demonstrates extensive subcutaneous emphysema about the entire chest wall, extending around the muscles of the ant erior, lateral, and posterior chest wall and into the neck. There is a prominent pneumomediastinum which extends from the supraclavicular region down to the subc arinal region and along the esophagus. There is a small pneumothorax on the right side, larger inferior chest in the superior chest, measuri ng up to 2.2 cm in AP dimension. There is some consolidation in the posterior right lower lung and so me patchy areas of opacity in the medial right lower lung. No pneumothorax on the left side. Multiple posterior right rib fractures are seen with significant displacement posterior 11th rib with a fragment projecting anteriorly, posterior lateral 10th rib with the medial fragment projecting ant eriorly into the chest, and posterior lateral ninth rib with mild internal displacement. There is als o a nondisplaced fracture of the medial right 11th rib at the costovertebral junction and a nondispla scarlett fracture of the right transverse process of L1. CONCLUSION: 1. Multiple displaced posterior right rib fractures (9 through 11). 2. Small size right pneumothorax extending from base to apex. 3. Extensive subcutaneous emphysema about the entire chest and supraclavicular region. There is also pneumomediastinum. 4. No evidence of pneumopericardium. Electronically signed by: Javier Marcum MD 05/24/2018 9:11 PM EDT
[2018-05-24] MEDS: Acetaminophen 325 MG Tablet PO PRN (22:20)
[2018-05-25] MEDS: MethylPREDNISolone Sod Succinate Inj 40 MG/ML Vial IV.PUSH SCH ×3 (05:19→21:29)
[2018-05-25] MEDS: Senna/Docusate Sodium 8.6/50 MG Tablet PO SCH ×3 (09:00→21:33)
[2018-05-25] MEDS: amLODIPine 10 MG Tablet PO SCH (09:00)
[2018-05-25] MEDS: Insulin NovoLOG Aspart Correctional Sugar Inj SQ SCH ×4 (09:00→21:31)
[2018-05-25] MEDS: Budesonide-Formoterol 160/4.5 MCG 6 GM Inhaler INH SCH ×2 (09:00→21:32)
[2018-05-25] MEDS ORDERED: predniSONE 20 MG Tablet PO SCH (09:00)
[2018-05-25] MEDS ORDERED: fentaNYL Citrate Inj 100 MCG/2 ML Ampul ONE (09:35)
[2018-05-25] MEDS ORDERED: fentaNYL Citrate Inj 250 MCG/5 ML Ampul ONE (10:31)
--- NOTE | 2018-05-25 15:26 | P.PN ---
Subjective Interval history: pt continues with sub q emphysema, chest wall down to fingertips. Noted with facial and periorbital swelling. Can't open eyes. Going for CT placement. Denies any SOB, no wheezing. No fever, no acute changes overnight. Physical Exam Vital signs: Vital Signs 05/24/18 16:00 05/24/18 20:00 05/24/18 23:50 Temperature 97.6 F 97.8 F Pulse Rate 75 81 76 Respiratory Rate 22 20 Blood Pressure 170/80 H 186/87 H Pulse Oximetry 95 96 05/25/18 00:00 05/25/18 02:40 05/25/18 04:00 Temperature 98.6 F 97.4 F L Pulse Rate 77 79 Respiratory Rate 20 20 20 Blood Pressure 151/95 H 167/77 H Pulse Oximetry 96 91 L 05/25/18 04:06 05/25/18 05:17 05/25/18 08:00 Temperature 97.7 F Pulse Rate 78 Respiratory Rate 18 Blood Pressure 169/79 H Pulse Oximetry 93 L 93 L 93 L 05/25/18 08:24 05/25/18 11:10 05/25/18 11:15 Temperature 97.5 F L 97.5 F L Pulse Rate 76 81 85 Respiratory Rate 12 18 18 Blood Pressure 176/85 H 176/85 H Pulse Oximetry 93 L 94 L 94 L 05/25/18 11:25 05/25/18 11:55 05/25/18 12:00 Temperature 97.6 F Pulse Rate 77 78 75 Respiratory Rate 16 16 18 Blood Pressure 163/91 H 173/87 H 122/91 H Pulse Oximetry 93 L 95 93 L 05/25/18 13:11 Temperature Pulse Rate 86 Respiratory Rate 12 Blood Pressure Pulse Oximetry Intake & Output 05/24/18 05/25/18 05/25/18 18:59 06:59 18:59 Intake Total 580 / 580 580 / 580 100 / 100 Output Total 600 / 600 1000 / 1000 Balance -20 / -20 -420 / -420 100 / 100 Weight 89 kg Intake: IV 100 / 100 100 / 100 100 / 100 Maxipime Inj 1,000 MG In NS Inj 100 / 100 100 / 100 100 / 100 100 ML @ 200 mls/hr IV.SIG Q12H [facility] Rx#:[id number] Oral 480 / 480 480 / 480 Output: Urine 600 / 600 1000 / 1000 Other: Date of Last Bowel Movement 05/23/18 # Bowel Movements 0 0 Narrative: GENERAL 83 year old elderly male, with periorbital edema. SKIN: Warm and dry. HEAD: Normocephalic. EYES: No scleral icterus. No injection or drainage. But bilateral puffy and swollen eyelids NECK: Supple, trachea midline. No JVD or lymphadenopathy. CARDIOVASCULAR: Regular rate and rhythm without murmurs, gallops, or rubs. RESPIRATORY: Breath sounds decrease bilaterally, mild exp. wheezing. Sub q emphysema noted to chest, arms, fingertips. No accessory muscle use. GASTROINTESTINAL: Abdomen soft, non-tender, nondistended. MUSCULOSKELETAL: No cyanosis, trace pretibial edema. Pedal pulses 2+ BACK: Nontender without obvious deformity. No CVA tenderness. Results - Labs CBC & Chem 7: 05/23/18 06:35 05/23/18 06:35 Laboratory Results - last 24 hr 05/24/18 05/24/18 05/24/18 16:23 18:25 20:07 Puncture Site Left radial Patient Temperature 98.6 O2 Saturation 94 ABG pH 7.46 H ABG pCO2 38 ABG pO2 81 ABG HCO3 26 ABG O2 Content 16.7 ABG Base Excess 2.5 H ABG Methemoglobin 1.2 Luis Test Present Hemoglobin 12.6 Carboxyhemoglobin 1.1 O2 Delivery Device Nasal cannula Liter Flow 4.00 Inspired O2 21 Critical Value No POC Glucose 275 H 255 H 05/25/18 05/25/18 09:00 12:52 Puncture Site Patient Temperature O2 Saturation ABG pH ABG pCO2 ABG pO2 ABG HCO3 ABG O2 Content ABG Base Excess ABG Methemoglobin Luis Test Hemoglobin Carboxyhemoglobin O2 Delivery Device Liter Flow Inspired O2 Critical Value POC Glucose 250 H 227 H Microbiology 05/20/18 19:05 Blood - Peripheral Aerobic Blood Culture - Final No growth in 5 days 05/20/18 19:05 Blood - Peripheral Anaerobic Blood Culture - Final No growth in 5 days 05/20/18 19:15 Blood - Peripheral Aerobic Blood Culture - Final No growth in 5 days 05/20/18 19:15 Blood - Peripheral Anaerobic Blood Culture - Final No growth in 5 days - Imaging Impressions Chest CT 05/24/18 00:00 CONCLUSION: 1. Multiple displaced posterior right rib fractures (9 through 11). 2. Small size right pneumothorax extending from base to apex. 3. Extensive subcutaneous emphysema about the entire chest and supraclavicular region. There is also pneumomediastinum. 4. No evidence of pneumopericardium. Chest X-Ray 05/24/18 00:00 CONCLUSION: Severe subcutaneous emphysema new when compared with the prior study without pneumothorax. Assessment and Plan - Assessment (1) Syncope Code(s): R55 - Syncope and collapse Status: Acute (2) PNA (pneumonia) Code(s): J18.9 - Pneumonia, unspecified organism Status: Acute (3) COPD (chronic obstructive pulmonary disease) Code(s): J44.9 - Chronic obstructive pulmonary disease, unspecified Status: Acute (4) Pneumothorax Code(s): J93.9 - Pneumothorax, unspecified Status: Acute (5) Subcutaneous emphysema Code(s): T79.7XXA - Traumatic subcutaneous emphysema, initial encounter Status : Acute - Plan 83-year-old man with Community-acquired pneumonia; failed outpatient therapy -continue cefepime, switch to azithromycin on discharge -continue with DuoNeb as needed, maintain oxygen saturation above 92% Syncope: acute syncopal event CT Head w/ no acute findings, images reviewed. Initial trop negative -serial cardiac enzymes negative -PT for eval/tx. -Follows w/ Dr. Foss, will consult as needed. -2D echo with EF 50-55%. -V/Q negative for PE COPD: Chronic Respiratory Failure w/ Acute Exacerbation. Moderate. -DuoNeb scheduled and as needed, -Solu-Medrol 40mg BID -DuoNeb, Symbicort. -Monitor O2. Hypertension -On [id number] daily -BP elevated, add Clonidine PRN Anaphylactic reaction?. Pt. protecting airway. -Treated per protocol with Zantac, Benadryl. Consider IV fluid hydration Right chest wall contusion secondary to syncope, found with right rib fractures 9 through 11, traumatic right pneumothorax and subq emphysema -appreciate pulm input -IR consult for CT placement. -continue with oxygen. -IS -possible CT surgery consult if sub q emphysema doesn't resolve DVT Prophylaxis: SCD/Teds d/w RN, pt. (4) Pneumothorax Qualifiers: Pneumothorax type: traumatic Encounter type: sequela Qualified Code(s): S27.0XXS - Traumatic pneumothorax, sequela (5) Subcutaneous emphysema Qualifiers: Encounter type: initial encounter Qualified Code(s): T79.7XXA - Traumatic subcutaneous emphysema, initial encounter
[2018-05-25 16:24] LABS: Hemoglobin A1c 6.8 % (4.3-6.0)
[2018-05-25] MEDS: Acetaminophen 325 MG Tablet PO PRN (17:18)
--- NOTE | 2018-05-25 17:48 | IR ---
EXAM DATE: 05/25/2018 11:30 AM EDT AGE/SEX: 83 years / Male INDICATIONS: Patient fell and rtsided pain and shortness of breath. CLINICAL DATA: This is the patient's initial encounter. Patient reports that signs and symptoms have been present for 4 - 6 days and indicates a pain score of 0/10. MEDICAL/SURGICAL HISTORY: Hypertension. Chronic obstructive pulmonary disease. Congestive hea rt failure. smoker,pnuemonia, skin cancers, right pneumothorax, syncopal episode. . removal of skin cancers. COMPARISON: No prior exams available for comparison. FLUORO TIME (min): 1.2 IMAGE SERIES: 1 ACCESS SITE: SEDATION TIME (min): 15 MEDICATION(S): 1 mg midazolam (Versed) IV 50 mcg fentanyl (Sublimaze) IV DEVICE(S): 12 Tongan non-locking catheter Jacinta . . PROCEDURE: 1. Fluoroscopically guided chest tube placement. 2. Conscious sedation with continuous EKG and oximetry monitoring. The risks, benefits and alternatives to the procedure were explained and verbal and written consent w as obtained. The site was prepped in sterile fashion. Full sterile technique was used, including ca p, mask, sterile gloves and gown and a large sterile sheet. Hand hygiene and 2% chlorhexidine and/or betadine/alcohol prep was utilized per protocol for cutaneous antisepsis. The skin and subcutaneous tissues were infiltrated with local anesthetic solution. With fluoroscopic guidance the chest was punctured between the first and second interspace and the pr escribed catheter was placed in the lung apex. Wall suction was applied. Post procedure images demon strate satisfactory position of the tube. The catheter was sutured in place and a Percu-Stay was suzan lied. Conscious sedation was performed with the prescribed dosages and duration as above in the presence of an independent trained radiology nurse to assist in the monitoring of the patient. EKG and oximetry remained stable throughout the procedure. The patient tolerated the procedure well and there were n o complications. The patient was sent to post anesthesia recovery in stable condition. CONCLUSION: Uncomplicated fluoroscopic guided pigtail chest tube placement as above for pneumothorax. Electronically signed by: Mook Thacker MD 05/25/2018 5:46 PM EDT
--- NOTE | 2018-05-25 19:04 | P.PN ---
Subjective Interval history: He is SOB and has Extensive subcutaneous emphysema. On O2 3 L. Denies chest pain. Chest was inserted by IR. Physical Exam Vital signs: Vital Signs 05/24/18 20:00 05/24/18 23:50 05/25/18 00:00 Temperature 97.8 F 98.6 F Pulse Rate 81 76 Respiratory Rate 20 20 Blood Pressure 186/87 H 151/95 H Pulse Oximetry 96 96 05/25/18 02:40 05/25/18 04:00 05/25/18 04:06 Temperature 97.4 F L Pulse Rate 77 79 Respiratory Rate 20 20 Blood Pressure 167/77 H Pulse Oximetry 91 L 93 L 05/25/18 05:17 05/25/18 08:00 05/25/18 08:24 Temperature 97.7 F Pulse Rate 98 H 76 Respiratory Rate 18 12 Blood Pressure 169/79 H Pulse Oximetry 93 L 93 L 93 L 05/25/18 11:10 05/25/18 11:15 05/25/18 11:25 Temperature 97.5 F L 97.5 F L Pulse Rate 81 85 77 Respiratory Rate 18 18 16 Blood Pressure 176/85 H 176/85 H 163/91 H Pulse Oximetry 94 L 94 L 93 L 05/25/18 11:55 05/25/18 12:00 05/25/18 13:11 Temperature 97.6 F Pulse Rate 78 78 86 Respiratory Rate 16 18 12 Blood Pressure 173/87 H 122/91 H Pulse Oximetry 95 93 L 05/25/18 16:00 Temperature 97.9 F Pulse Rate 95 H Respiratory Rate 20 Blood Pressure 176/83 H Pulse Oximetry 95 Intake & Output 05/24/18 05/25/18 05/25/18 18:59 06:59 18:59 Intake Total 580 / 580 580 / 580 460 / 460 Output Total 600 / 600 1000 / 1000 900 / 900 Balance -20 / -20 -420 / -420 -440 / -440 Weight 89 kg Intake: IV 100 / 100 100 / 100 100 / 100 Maxipime Inj 1,000 MG In NS Inj 100 / 100 100 / 100 100 / 100 100 ML @ 200 mls/hr IV.SIG Q12H [facility] Rx#:[id number] Oral 480 / 480 480 / 480 360 / 360 Output: Urine 600 / 600 1000 / 1000 900 / 900 Other: Date of Last Bowel Movement 05/23/18 # Bowel Movements 0 0 0 Narrative: GENERAL 83 year old elderly male, with periorbital edema. SKIN: Warm and dry.Extensive sub Q emphysema over Right chest and neck and face HEAD: Normocephalic. EYES: No scleral icterus. But bilateral puffy and swollen eyelids NECK: Supple, trachea midline. No JVD or lymphadenopathy. CARDIOVASCULAR: Regular rate and rhythm without murmurs, gallops, or rubs. RESPIRATORY: Breath sounds decrease bilaterally,Bilateral exp. wheezing. Sub q emphysema noted to chest, arms, fingertips. No accessory muscle use. GASTROINTESTINAL: Abdomen soft, non-tender, nondistended. MUSCULOSKELETAL: No cyanosis, trace pretibial edema. Pedal pulses 2+ BACK: Nontender without obvious deformity. No CVA tenderness. Results - Labs CBC & Chem 7: 05/23/18 06:35 05/23/18 06:35 Laboratory Results - last 24 hr 05/24/18 05/25/18 05/25/18 20:07 06:10 09:00 POC Glucose 255 H 250 H Hemoglobin A1c 6.8 H 05/25/18 05/25/18 12:52 17:12 POC Glucose 227 H 283 H Hemoglobin A1c Microbiology 05/20/18 19:05 Blood - Peripheral Aerobic Blood Culture - Final No growth in 5 days 05/20/18 19:05 Blood - Peripheral Anaerobic Blood Culture - Final No growth in 5 days 05/20/18 19:15 Blood - Peripheral Aerobic Blood Culture - Final No growth in 5 days 05/20/18 19:15 Blood - Peripheral Anaerobic Blood Culture - Final No growth in 5 days - Imaging Impressions Chest CT 05/24/18 00:00 CONCLUSION: 1. Multiple displaced posterior right rib fractures (9 through 11). 2. Small size right pneumothorax extending from base to apex. 3. Extensive subcutaneous emphysema about the entire chest and supraclavicular region. There is also pneumomediastinum. 4. No evidence of pneumopericardium. Chest Tube Insertion 05/25/18 00:00 CONCLUSION: Uncomplicated fluoroscopic guided pigtail chest tube placement as above for pneumothorax. Assessment and Plan - Assessment (1) Chest wall contusion Code(s): S20.219A - Contusion of unspecified front wall of thorax, initial encounter Status: Acute (2) Contusion, shoulder /upper arm Status: Acute (3) Acute exacerbation of chronic obstructive airways disease Code(s): J44.1 - Chronic obstructive pulmonary disease with (acute) exacerbation Status: Acute (4) Syncope Code(s): R55 - Syncope and collapse Status: Acute (5) Pneumonia Code(s): J18.9 - Pneumonia, unspecified organism Status: Acute (6) COPD (chronic obstructive pulmonary disease) Code(s): J44.9 - Chronic obstructive pulmonary disease, unspecified Status: Acute (7) Pneumothorax Code(s): J93.9 - Pneumothorax, unspecified Status: Acute (8) Subcutaneous emphysema Code(s): T79.7XXA - Traumatic subcutaneous emphysema, initial encounter Status : Acute - Plan 1. O2 at 3 L. 2. Duoneb nebs qid. 3. Continue antibiotics Rocephin, Zithro 4. CXR,CBC in am 5. Symbicort 2 puffs BID 6. Solumedrol 40 mg IV Q8H 7. Thoracic surgery consult for SubQ emphysema (7) Pneumothorax Qualifiers: Pneumothorax type: traumatic Encounter type: sequela Qualified Code(s): S27.0XXS - Traumatic pneumothorax, sequela (8) Subcutaneous emphysema Qualifiers: Encounter type: initial encounter Qualified Code(s): T79.7XXA - Traumatic subcutaneous emphysema, initial encounter
[2018-05-26] MEDS: MethylPREDNISolone Sod Succinate Inj 40 MG/ML Vial IV.PUSH SCH ×3 (05:36→20:26)
--- NOTE | 2018-05-26 07:40 | XR ---
EXAM DATE: 05/26/2018 7:15 AM EDT AGE/SEX: 83 years / Male INDICATIONS: Short of breath. CLINICAL DATA: This is the patient's subsequent encounter. Patient reports that signs and symptoms h ave been present for 1 week and indicates a pain score of Nonresponsive. MEDICAL/SURGICAL HISTORY: . Hypertension. Chronic obstructive pulmonary disease. Congestive hea rt failure. Smoker, pneumonia, skin cancers, right pneumothorax, syncopal episode. . Chest tube. Car diac cath. COMPARISON: [facility] – [place], CHEST 1V SINGLE AP, 05/24/2018. . FINDINGS: There is extensive subcutaneous air in the soft tissues bilaterally similar to May 24. Placement o f right chest tube with decrease in size of basilar component of pneumothorax. Basilar airspace disea se persists. No left pneumothorax. Heart size upper limits normal. CONCLUSION: Placement of right chest tube with decrease in size of basilar component of right pneumothorax. Extensive subcutaneous air remains. Persistent bilateral mostly basilar airspace disease. Electronically signed by: Trevor Victoria MD 05/26/2018 7:39 AM EDT
[2018-05-26 08:15] LABS: Hematocrit 37.3 % (39.0-51.0); Hemoglobin 12.6 gm/dL (13.0-17.0); Mean Corpuscular HGB Conc 33.7 % (32.0-36.0); Mean Corpuscular Hemoglobin 28.9 pg (27.0-34.0); Mean Corpuscular Volume 85.7 fL (80.0-100.0); Mean Platelet Volume 6.8 fL (7.0-11.0); Platelet Count 206 th/mm3 (150-450); Red Blood Count 4.35 mil/mm3 (4.50-5.90); Red Cell Distribution Width 14.3 % (11.6-17.2); White Blood Count 8.4 th/mm3 (4.0-11.0)
[2018-05-26 08:40] LABS: Calcium 8.9 mg/dL (8.5-10.1); Carbon Dioxide 28.7 meq/L (21.0-32.0); Potassium 4.7 meq/L (3.5-5.1)
[2018-05-26] MEDS: Azithromycin 250 MG Tablet PO SCH (08:47)
[2018-05-26] MEDS: amLODIPine 10 MG Tablet PO SCH (08:47)
[2018-05-26] MEDS: Senna/Docusate Sodium 8.6/50 MG Tablet PO SCH ×3 (08:48→21:42)
[2018-05-26] MEDS: Insulin NovoLOG Aspart Correctional Sugar Inj SQ SCH ×4 (08:49→20:26)
[2018-05-26] MEDS: Budesonide-Formoterol 160/4.5 MCG 6 GM Inhaler INH SCH ×2 (08:49→20:28)
--- NOTE | 2018-05-26 11:39 | XR ---
EXAM DATE: 05/26/2018 11:33 AM EDT AGE/SEX: 83 years / Male INDICATIONS: Status post chest tube placement. CLINICAL DATA: This is the patient's subsequent encounter. Patient reports that signs and symptoms h ave been present for 3 days and indicates a pain score of 0/10. MEDICAL/SURGICAL HISTORY: Hypertension. Chronic obstructive pulmonary disease. Emphysema. My ocardial infarction. Macular degeneration. CVA. . Cardiac cath. COMPARISON: [facility] – [place], CHEST 1V SINGLE AP, 05/26/2018. . FINDINGS: Portable upright expiratory view of the chest demonstrates a normal-sized cardiac silhouette. Right c hest tube is present with pigtail at the apex of the right hemithorax. No pneumothorax is visualized. There is mild bibasilar airspace opacity. Severe diffuse subcutaneous emphysema is present over the chest wall and inferior neck. CONCLUSION: 1. Right chest tube in place without pneumothorax. 2. Stable severe diffuse subcutaneous emphysema. 3. Presumed atelectasis at the lung bases. Electronically signed by: Mook Lomax MD 05/26/2018 11:38 AM EDT
--- NOTE | 2018-05-26 12:31 | P.PN ---
Subjective Interval history: Had right anterior pigtail chest tube inserted in radiology yesterday, remains with significant subcutaneous emphysema. Continues with oxygen at 4 L, sats 93% . Nasal sounding voice. Some shortness of breath with activity, no chest pain. Had a rough night, did not sleep very well. No fever. Eyes remain swollen, only able to open with assistance. Physical Exam Vital signs: Vital Signs 05/25/18 13:11 05/25/18 16:00 05/25/18 19:55 Temperature 97.9 F Pulse Rate 86 95 H 84 Respiratory Rate 12 20 17 Blood Pressure 176/83 H Pulse Oximetry 95 95 05/25/18 20:00 05/26/18 00:00 05/26/18 04:00 Temperature 97.7 F 97.4 F L 97.3 F L Pulse Rate 80 80 75 Respiratory Rate 20 19 18 Blood Pressure 175/77 H 158/76 H 153/76 H Pulse Oximetry 96 92 L 93 L 05/26/18 04:27 05/26/18 07:47 05/26/18 08:00 Temperature 97.2 F L Pulse Rate 83 80 79 Respiratory Rate 19 18 18 Blood Pressure 173/91 H Pulse Oximetry 94 L 95 94 L 05/26/18 09:00 Temperature Pulse Rate 82 Respiratory Rate Blood Pressure Pulse Oximetry Intake & Output 05/25/18 05/26/18 05/26/18 18:59 06:59 18:59 Intake Total 460 / 460 900 / 900 100 / 100 Output Total 900 / 900 Balance -440 / -440 900 / 900 100 / 100 Intake: IV 100 / 100 100 / 100 100 / 100 Maxipime Inj 1,000 MG In NS Inj 100 / 100 100 / 100 100 / 100 100 ML @ 200 mls/hr IV.SIG Q12H [facility] Rx#:[id number] Oral 360 / 360 800 / 800 Output: Urine 900 / 900 Other: Date of Last Bowel Movement 05/25/18 05/26/18 # Bowel Movements 0 Narrative: GENERAL 83 year old elderly male, with periorbital edema. SKIN: Warm and dry. HEAD: Normocephalic. EYES: No scleral icterus. No injection or drainage. But bilateral puffy and swollen eyelids NECK: Supple, trachea midline. No JVD or lymphadenopathy. CARDIOVASCULAR: Regular rate and rhythm without murmurs, gallops, or rubs. RESPIRATORY: Breath sounds decrease bilaterally, mild exp. wheezing. Sub q emphysema noted to chest, arms, fingertips. No accessory muscle use. Right anterior chest wall with pigtail CT. GASTROINTESTINAL: Abdomen soft, non-tender, nondistended. MUSCULOSKELETAL: No cyanosis, trace pretibial edema. Pedal pulses 2+ BACK: Nontender without obvious deformity. No CVA tenderness. NEURO: awakes to voice, oriented x 3, follows commands. Can't open eyes Results - Labs CBC & Chem 7: 05/26/18 07:28 05/26/18 07:28 Laboratory Results - last 24 hr 05/25/18 05/25/18 05/25/18 06:10 12:52 17:12 WBC RBC Hgb Hct MCV MCH MCHC RDW Plt Count MPV Sodium Potassium Chloride Carbon Dioxide Anion Gap BUN Creatinine Estimated GFR POC Glucose 227 H 283 H Random Glucose Hemoglobin A1c 6.8 H Calcium 05/25/18 05/26/18 05/26/18 20:23 07:28 07:28 WBC 8.4 RBC 4.35 L Hgb 12.6 L Hct 37.3 L MCV 85.7 MCH 28.9 MCHC 33.7 RDW 14.3 Plt Count 206 MPV 6.8 L Sodium 136 Potassium 4.7 Chloride 100 Carbon Dioxide 28.7 Anion Gap 7 BUN 32 H Creatinine 1.13 Estimated GFR 62 L POC Glucose 238 H Random Glucose 252 H Hemoglobin A1c Calcium 8.9 05/26/18 08:49 WBC RBC Hgb Hct MCV MCH MCHC RDW Plt Count MPV Sodium Potassium Chloride Carbon Dioxide Anion Gap BUN Creatinine Estimated GFR POC Glucose 275 H Random Glucose Hemoglobin A1c Calcium Microbiology 05/20/18 19:05 Blood - Peripheral Aerobic Blood Culture - Final No growth in 5 days 05/20/18 19:05 Blood - Peripheral Anaerobic Blood Culture - Final No growth in 5 days 05/20/18 19:15 Blood - Peripheral Aerobic Blood Culture - Final No growth in 5 days 05/20/18 19:15 Blood - Peripheral Anaerobic Blood Culture - Final No growth in 5 days - Imaging Impressions Chest Tube Insertion 05/25/18 00:00 CONCLUSION: Uncomplicated fluoroscopic guided pigtail chest tube placement as above for pneumothorax. Chest X-Ray 05/26/18 00:00 CONCLUSION: Placement of right chest tube with decrease in size of basilar component of right pneumothorax. Extensive subcutaneous air remains. Persistent bilateral mostly basilar airspace disease. Chest X-Ray 05/26/18 11:07 CONCLUSION: 1. Right chest tube in place without pneumothorax. 2. Stable severe diffuse subcutaneous emphysema. 3. Presumed atelectasis at the lung bases. Assessment and Plan - Assessment (1) Syncope Code(s): R55 - Syncope and collapse Status: Acute (2) PNA (pneumonia) Code(s): J18.9 - Pneumonia, unspecified organism Status: Acute (3) COPD (chronic obstructive pulmonary disease) Code(s): J44.9 - Chronic obstructive pulmonary disease, unspecified Status: Acute (4) Pneumothorax Code(s): J93.9 - Pneumothorax, unspecified Status: Acute (5) Subcutaneous emphysema Code(s): T79.7XXA - Traumatic subcutaneous emphysema, initial encounter Status : Acute - Plan 83-year-old man with PMH of HTN, COPD, CHF (Unknown EF) and Skin CA who was brought to the ER by EMS after syncopal event. states pt hasn't been feeling well over the last few days and has been on Z-pack by PCP. Had a syncopal with preceding dizziness and SOB following. Community-acquired pneumonia; failed outpatient therapy -continue cefepime, switch to azithromycin on discharge -continue with DuoNeb as needed, maintain oxygen saturation above 92% Syncope: acute syncopal event CT Head w/ no acute findings, images reviewed. Initial trop negative -serial cardiac enzymes negative -PT for eval/tx. -Follows w/ Dr. Foss, will consult as needed. -2D echo with EF 50-55%. -V/Q negative for PE COPD: Chronic Respiratory Failure w/ Acute Exacerbation. Moderate. -DuoNeb scheduled and as needed, -Solu-Medrol 40mg BID -DuoNeb, Symbicort. -Monitor O2. Hypertension Remains elevated -On [id number] daily -Clonidine PRN -We will add Lopressor 12.5 mg p.o. twice daily, heart rate 90s Anaphylactic reaction?. Pt. protecting airway. -Treated per protocol with Zantac, Benadryl. Right chest wall contusion secondary to syncope, found with right rib fractures 9 through 11, traumatic right pneumothorax and subq emphysema -appreciate pulm input -IR consult for CT placement. Status post chest tube placement 05/25/2018 -continue with oxygen. -IS -Remains with significant subcutaneous emphysema. Cardiothoracic surgery consult pending DVT Prophylaxis: SCD/Teds d/w RN, pt. (4) Pneumothorax Qualifiers: Pneumothorax type: traumatic Encounter type: sequela Qualified Code(s): S27.0XXS - Traumatic pneumothorax, sequela (5) Subcutaneous emphysema Qualifiers: Encounter type: initial encounter Qualified Code(s): T79.7XXA - Traumatic subcutaneous emphysema, initial encounter
--- NOTE | 2018-05-26 13:00 | MB ---
cc: Kelsie Salguero DATE: 05/26/2018 HISTORY OF PRESENT ILLNESS: An 83-year-old male with history of hypertension, CHF, COPD, skin cancer, brought into the emergency room following a near syncopal episode. Apparently was walking to the bathroom, got dizzy, and fell on the right side of his body including the right shoulder, chest, and hip area, complaining of shortness of breath. Chest x-ray showed possible infiltrate. He was sent for further studies to include head CT, which just showed some symmetric cortical atrophy, moderate severe periventricular and deep white matter tracts. Small vessel ischemic demyelination, nothing acute. A V/Q scan was done, which showed some trapping on the ventilatory images. Low probability for pulmonary emboli. CT chest showed multiple displaced posterior rib fractures 9 through 11, small size, right pneumothorax extending from the base to the apex. Extensive subcutaneous emphysema about the entire chest. There was also evidence of some pneumomediastinum. A chest tube was placed on 05/25/2018 for the right pneumothorax. We were consulted regarding the persistent subcutaneous emphysema. The patient has a significant subcutaneous emphysema including the whole upper chest, upper back, face, eyelids. No actual stridor noted, which has apparently not improved since the chest tube was placed. PAST MEDICAL HISTORY: Includes COPD, falls, hypertension, recent syncopal episode, skin cancer removal in the past, history of pneumonia. PAST SURGICAL HISTORY: No past surgical history other than the chest tube placement. ALLERGIES: NO KNOWN ALLERGIES. MEDICATIONS: He takes hydrochlorothiazide and amlodipine at home. Echocardiogram was also done, which showed an ejection fraction of 50% with trace mitral regurgitation, trace tricuspid regurgitation, mild LVH. SOCIAL HISTORY: The patient lives with his . Positive for tobacco abuse. REVIEW OF SYSTEMS: GENERAL: No night sweats, fever, heat or cold intolerance. SKIN: No psoriasis, itching or hives. HEENT: He has difficulty seeing. He has had some macular degeneration in the right eye, which has vision loss. RESPIRATORY: Positive for shortness of breath. CARDIOVASCULAR: Positive for right rib pain. GASTROINTESTINAL: No diarrhea or vomiting. GENITOURINARY: No burning, frequency, urgency. CENTRAL NERVOUS SYSTEM: No history of TIA, CVA or seizure disorder. ENDOCRINE: No history of diabetes or hypothyroidism. PHYSICAL EXAMINATION: GENERAL: Well-developed male. The patient is awake, alert, complaining of some right rib discomfort. VITAL SIGNS: Blood pressure 170/90, heart rate of 80, afebrile, O2 saturation 95 on 4 liters. HEENT: He has significant facial subcutaneous emphysema, especially over the eyelid area. His right pupil is approximately 4 mm. He has vision disturbance in that right eye. Left pupil is approximately 2-3 mm, equal and reactive. SKIN: He has some subcutaneous emphysema in the neck area, the upper chest and back, also both upper arms. CHEST: He has a chest tube, right upper chest wall to 40 cm suction with no air leak. ABDOMEN: Obese, soft, nontender. No masses or organomegaly. EXTREMITIES: No cyanosis, clubbing or edema. He has some ecchymotic areas to the right hip area and right lateral chest wall. LABORATORY DATA: Shows hemoglobin 12, hematocrit 37, white cell count 8.4, platelet count of 206. Sodium 136, potassium 4.7, BUN of 32, creatinine 1.13, glucose 275. Hemoglobin A1c of 6.8. Urinalysis is unremarkable. PT/INR of 1.1. Blood cultures are negative. Reports as above. IMAGING: Chest x-ray this morning does show no evidence of pneumothorax, severe diffuse subcutaneous emphysema present over the chest wall and inferior neck. Also, some atelectasis in the bases. ASSESSMENT AND PLAN: This is an 83-year-old male, status post fall, sustained rib fractures on the right posterior chest wall 9 through 11. Developed a small pneumothorax, now with extensive subcutaneous emphysema. The chest tube is at 40 cm of suction with no air leak. The films will be evaluated by Dr. Lizz Anthony for further evaluation for need for any further intervention. MORENA San MD JRT/rh , 12:13 PM , 12:25 PM
--- NOTE | 2018-05-26 18:11 | P.PN ---
Subjective Interval history: Alert and talking and in Mild distress. Has extensive right chest wall neck and facial SubQ emphysema. No fever. Chest tube shows no leak now . CXR was showing no Pneumothorax. Physical Exam Vital signs: Vital Signs 05/25/18 19:55 05/25/18 20:00 05/26/18 00:00 Temperature 97.7 F 97.4 F L Pulse Rate 84 80 80 Respiratory Rate 17 20 19 Blood Pressure 175/77 H 158/76 H Pulse Oximetry 95 96 92 L 05/26/18 04:00 05/26/18 04:27 05/26/18 07:47 Temperature 97.3 F L Pulse Rate 75 83 80 Respiratory Rate 18 19 18 Blood Pressure 153/76 H Pulse Oximetry 93 L 94 L 95 05/26/18 08:00 05/26/18 09:00 05/26/18 12:00 Temperature 97.2 F L 97.4 F L Pulse Rate 79 82 79 Respiratory Rate 18 18 Blood Pressure 173/91 H 168/88 H Pulse Oximetry 94 L 94 L 05/26/18 17:28 Temperature Pulse Rate 94 H Respiratory Rate 20 Blood Pressure Pulse Oximetry 92 L Intake & Output 05/25/18 05/26/18 05/26/18 18:59 06:59 18:59 Intake Total 460 / 460 900 / 900 100 / 100 Output Total 900 / 900 Balance -440 / -440 900 / 900 100 / 100 Intake: IV 100 / 100 100 / 100 100 / 100 Maxipime Inj 1,000 MG In NS Inj 100 / 100 100 / 100 100 / 100 100 ML @ 200 mls/hr IV.SIG Q12H VALERIE Rx#:[id number] Oral 360 / 360 800 / 800 Output: Urine 900 / 900 Other: Date of Last Bowel Movement 05/25/18 05/26/18 # Bowel Movements 0 Narrative: GENERAL 83 year old elderly male, with severe periorbital edema. SKIN: Warm and dry. HEAD: Normocephalic. EYES: No scleral icterus. No injection or drainage. But bilateral puffy and swollen eyelids NECK: Supple, trachea midline. No JVD or lymphadenopathy. CARDIOVASCULAR: Regular rate and rhythm without murmurs, gallops, or rubs. RESPIRATORY: Breath sounds decrease bilaterally, mild wheezing. Sub q emphysema noted to chest, arms, fingertips with crepitus . Right anterior chest wall with pigtail CT. GASTROINTESTINAL: Abdomen soft, non-tender, nondistended. MUSCULOSKELETAL: No cyanosis, trace pretibial edema. Pedal pulses 2+ BACK: Nontender without obvious deformity. No CVA tenderness. NEURO: awakes to voice, oriented x 3, follows commands. Can't open eyes Results - Labs CBC & Chem 7: 05/26/18 07:28 05/26/18 07:28 Laboratory Results - last 24 hr 05/25/18 05/26/18 05/26/18 20:23 07:28 07:28 WBC 8.4 RBC 4.35 L Hgb 12.6 L Hct 37.3 L MCV 85.7 MCH 28.9 MCHC 33.7 RDW 14.3 Plt Count 206 MPV 6.8 L Sodium 136 Potassium 4.7 Chloride 100 Carbon Dioxide 28.7 Anion Gap 7 BUN 32 H Creatinine 1.13 Estimated GFR 62 L POC Glucose 238 H Random Glucose 252 H Calcium 8.9 05/26/18 05/26/18 05/26/18 08:49 13:00 17:11 WBC RBC Hgb Hct MCV MCH MCHC RDW Plt Count MPV Sodium Potassium Chloride Carbon Dioxide Anion Gap BUN Creatinine Estimated GFR POC Glucose 275 H 272 H 218 H Random Glucose Calcium - Imaging Impressions Chest X-Ray 05/26/18 00:00 CONCLUSION: Placement of right chest tube with decrease in size of basilar component of right pneumothorax. Extensive subcutaneous air remains. Persistent bilateral mostly basilar airspace disease. Chest X-Ray 05/26/18 11:07 CONCLUSION: 1. Right chest tube in place without pneumothorax. 2. Stable severe diffuse subcutaneous emphysema. 3. Presumed atelectasis at the lung bases. Assessment and Plan - Assessment (1) Chest wall contusion Code(s): S20.219A - Contusion of unspecified front wall of thorax, initial encounter Status: Acute (2) Contusion, shoulder /upper arm Status: Acute (3) Acute exacerbation of chronic obstructive airways disease Code(s): J44.1 - Chronic obstructive pulmonary disease with (acute) exacerbation Status: Acute (4) Syncope Code(s): R55 - Syncope and collapse Status: Acute (5) Pneumonia Code(s): J18.9 - Pneumonia, unspecified organism Status: Acute (6) COPD (chronic obstructive pulmonary disease) Code(s): J44.9 - Chronic obstructive pulmonary disease, unspecified Status: Acute (7) Pneumothorax Code(s): J93.9 - Pneumothorax, unspecified Status: Acute (8) Subcutaneous emphysema Code(s): T79.7XXA - Traumatic subcutaneous emphysema, initial encounter Status : Acute (9) Ribs, multiple fractures Code(s): S22.49XA - Multiple fractures of ribs, unspecified side, initial encounter for closed fracture Status: Acute - Plan 1. O2 at 3 L. N/C 2. Cont Duoneb nebs qid. 3. Continue antibiotics Rocephin. 4. CXR,CBC, BMP in am 5. Symbicort 160/4.5 mcg 2 puffs BID 6. Solumedrol 40 mg IV BID 7. IS at bedside q2h (7) Pneumothorax Qualifiers: Pneumothorax type: traumatic Encounter type: sequela Qualified Code(s): S27.0XXS - Traumatic pneumothorax, sequela (8) Subcutaneous emphysema Qualifiers: Encounter type: initial encounter Qualified Code(s): T79.7XXA - Traumatic subcutaneous emphysema, initial encounter
[2018-05-26 19:27] LABS: ABG Base Excess 2.7 mmol/L (-2-2); ABG PCO2 40 mmHg (38-42); ABG PO2 90 mmHg (61-120)
--- NOTE | 2018-05-26 19:41 | XR ---
EXAM DATE: 05/26/2018 7:16 PM EDT AGE/SEX: 83 years / Male INDICATIONS: Patient has increased shortness of breath. CLINICAL DATA: This is the patient's subsequent encounter. Patient reports that signs and symptoms h ave been present for 3 days and indicates a pain score of 4/10. MEDICAL/SURGICAL HISTORY: . Hypertension. Chronic obstructive pulmonary disease. Emphysema. Gustavo cardial infarction. Macular degeneration. CVA. . Cardiac cath. None. COMPARISON: C, CHEST EXPIRATION ONLY, 05/26/2018. [place], [place]ST 1V [place]ING[place], 05[place]24[place]2018[place] [facility] [place] S[place] [facility] [place]. . FINDINGS: Right chest catheter remains at the right apex. No discernible pneumothorax. Extensive subcutaneous e mphysema about the entire chest and clavicular region similar in severity to prior. There is a reflec tion seen in the left mediastinum characteristic of pneumomediastinum. Patchy areas of infiltrate in the left lower lung without loss of delineation of the left hemidiaphragm is similar appearance to pr ior. CONCLUSION: Overall appearance of the chest and lungs is similar to prior with extensive subcutaneous emphysema, no evidence of mediastinal shift, pneumomediastinum and chest catheter projected at the right apex. Electronically signed by: Javier Marcum MD 05/26/2018 7:40 PM EDT
[2018-05-26] MEDS: Metoprolol Tartrate 25 MG Tablet PO SCH (20:25)
--- NOTE | 2018-05-27 04:50 | XR ---
EXAM DATE: 05/27/2018 4:15 AM EDT AGE/SEX: 83 years / Male INDICATIONS: Shortness of breath. Evaluate for right pneumothorax. CLINICAL DATA: This is the patient's subsequent encounter. Patient reports that signs and symptoms h ave been present for 3 days and indicates a pain score of 5/10. MEDICAL/SURGICAL HISTORY: . Myocardial infarction. Emphysema. Chronic obstructive pulmonary dis ease. None. COMPAR[place] [facility] [place], 05/26/[place]. . FINDINGS: A single AP view of the chest demonstrates extensive subcutaneous air overlying the chest bilaterally as well as the lower neck. A small caliber thoracostomy tube is seen coiled within the right apex. N o pneumothorax. Heart is normal in size. Patchy parenchymal consolidation within the left base is unc hanged. Right lung is clear. No effusions. Heart is normal in size. CONCLUSION: Unchanged exam. No pneumothorax. Extensive subcutaneous air. Left lower lobe infiltrate. Electronically signed by: Javier Alfonso MD 05/27/2018 4:48 AM EDT
[2018-05-27] MEDS: Acetaminophen 325 MG Tablet PO PRN ×2 (05:51→20:58)
[2018-05-27] MEDS: MethylPREDNISolone Sod Succinate Inj 40 MG/ML Vial IV.PUSH SCH ×2 (08:43→20:57)
[2018-05-27] MEDS: Insulin NovoLOG Aspart Correctional Sugar Inj SQ SCH ×4 (08:44→21:18)
[2018-05-27] MEDS: Azithromycin 250 MG Tablet PO SCH (08:44)
[2018-05-27] MEDS: amLODIPine 10 MG Tablet PO SCH (08:44)
[2018-05-27] MEDS: Senna/Docusate Sodium 8.6/50 MG Tablet PO SCH ×2 (08:45→20:58)
[2018-05-27] MEDS: Budesonide-Formoterol 160/4.5 MCG 6 GM Inhaler INH SCH ×2 (08:45→21:24)
[2018-05-27] MEDS: Metoprolol Tartrate 25 MG Tablet PO SCH ×2 (08:45→20:58)
--- NOTE | 2018-05-27 10:47 | P.PNIM ---
Subjective Interval history: in no acute distress. still with significant facial swelling. chest tube in place. d/w the RN at the bedside. Physical Exam Vital signs: Vital Signs 05/26/18 12:00 05/26/18 16:00 05/26/18 17:28 Temperature 97.4 F L 97.4 F L Pulse Rate 79 80 94 H Respiratory Rate 18 18 20 Blood Pressure 168/88 H 170/78 H Pulse Oximetry 94 L 94 L 92 L 05/26/18 19:04 05/26/18 20:00 05/27/18 00:00 Temperature 97.9 F 98.1 F Pulse Rate 94 H 89 61 Respiratory Rate 20 20 16 Blood Pressure 180/98 H 163/79 H Pulse Oximetry 95 96 05/27/18 04:00 Temperature 98.8 F Pulse Rate 58 L Respiratory Rate 20 Blood Pressure 158/93 H Pulse Oximetry 93 L Intake & Output 05/26/18 05/27/18 05/27/18 18:59 06:59 18:59 Intake Total 480 / 480 100 / 100 240 / 240 Output Total 800 / 800 1335 / 1335 Balance -320 / -320 100 / 100 -1095 / -1095 Weight 90.7 kg Intake: IV 100 / 100 100 / 100 Maxipime Inj 1,000 MG In NS Inj 100 / 100 100 / 100 100 ML @ 200 mls/hr IV.SIG Q12H VALERIE Rx#:[id number] Oral 380 / 380 240 / 240 Output: Urine 800 / 800 1325 / 1325 Chest Tube Drainage 10 #1 Right Anterior Other: Date of Last Bowel Movement 05/26/18 05/26/18 05/26/18 # Bowel Movements 1 1 - Constitutional no acute distress - Routine HEENT Exam Comments: facial swelling. - Routine Respiratory Exam Present: CTA bilaterally - Routine Cardiovascular Exam Present: RRR - Routine Abdominal Exam Present: soft - Routine Extremities Exam Comments: no pedal edema. - Routine Neurological Exam Present: alert Results - Labs CBC & Chem 7: 05/26/18 07:28 05/26/18 07:28 Laboratory Results - last 24 hr 05/26/18 05/26/18 05/26/18 13:00 17:11 19:10 Puncture Site Right radial Patient Temperature 98.6 O2 Saturation 95 ABG pH 7.44 H ABG pCO2 40 ABG pO2 90 ABG HCO3 27 H ABG O2 Content 17.2 ABG Base Excess 2.7 H ABG Methemoglobin 1.2 Luis Test Present Hemoglobin 12.9 Carboxyhemoglobin 1.2 O2 Delivery Device Nasal cannula Liter Flow 4.00 Inspired O2 0 Critical Value No POC Glucose 272 H 218 H Nasal Screen MRSA (PCR) 05/26/18 05/26/18 05/27/18 19:41 22:00 08:19 Puncture Site Patient Temperature O2 Saturation ABG pH ABG pCO2 ABG pO2 ABG HCO3 ABG O2 Content ABG Base Excess ABG Methemoglobin Luis Test Hemoglobin Carboxyhemoglobin O2 Delivery Device Liter Flow Inspired O2 Critical Value POC Glucose 184 H 199 H Nasal Screen MRSA (PCR) Not detected - Imaging Impressions Chest X-Ray 05/26/18 11:07 CONCLUSION: 1. Right chest tube in place without pneumothorax. 2. Stable severe diffuse subcutaneous emphysema. 3. Presumed atelectasis at the lung bases. Chest X-Ray 05/26/18 18:52 CONCLUSION: Overall appearance of the chest and lungs is similar to prior with extensive subcutaneous emphysema, no evidence of mediastinal shift, pneumomediastinum and chest catheter projected at the right apex. Chest X-Ray 05/27/18 00:00 CONCLUSION: Unchanged exam. No pneumothorax. Extensive subcutaneous air. Left lower lobe infiltrate. Assessment and Plan - Assessment (1) Syncope Code(s): R55 - Syncope and collapse Status: Acute (2) PNA (pneumonia) Code(s): J18.9 - Pneumonia, unspecified organism Status: Acute (3) COPD (chronic obstructive pulmonary disease) Code(s): J44.9 - Chronic obstructive pulmonary disease, unspecified Status: Acute (4) Pneumothorax Code(s): J93.9 - Pneumothorax, unspecified Status: Acute (5) Subcutaneous emphysema Code(s): T79.7XXA - Traumatic subcutaneous emphysema, initial encounter Status : Acute - Plan Community-acquired pneumonia; failed outpatient therapy -continue cefepime, switch to azithromycin on discharge -continue with DuoNeb as needed, maintain oxygen saturation above 92% Syncope: acute syncopal event CT Head w/ no acute findings, images reviewed. Initial trop negative -serial cardiac enzymes negative -PT for eval/tx. -Follows w/ Dr. Foss, will consult as needed. -2D echo with EF 50-55%. -V/Q negative for PE COPD: Chronic Respiratory Failure w/ Acute Exacerbation. Moderate. -DuoNeb scheduled and as needed, -Solu-Medrol 40mg BID -DuoNeb, Symbicort. -Monitor O2. Hypertension Remains elevated -On [id number] daily -Clonidine PRN -We will add Lopressor 12.5 mg p.o. twice daily, heart rate 90s Anaphylactic reaction?. Pt. protecting airway. -Treated per protocol with Zantac, Benadryl. Right chest wall contusion secondary to syncope, found with right rib fractures through 11, traumatic right pneumothorax and subq emphysema -appreciate pulm input -IR consult for CT placement. Status post chest tube placement 05/25/2018 -continue with oxygen. -IS -Remains with significant subcutaneous emphysema. -CT surgery consulted. (4) Pneumothorax Qualifiers: Pneumothorax type: traumatic Encounter type: sequela Qualified Code(s): S27.0XXS - Traumatic pneumothorax, sequela (5) Subcutaneous emphysema Qualifiers: Encounter type: initial encounter Qualified Code(s): T79.7XXA - Traumatic subcutaneous emphysema, initial encounter
[2018-05-27] MEDS ORDERED: Dextrose 50% in Water 50 ML Vial IV.PUSH PRN (12:17)
[2018-05-27] MEDS ORDERED: Sodium Chlor 0.9% Inj 77.5 ML, Papaverine Inj 60 MG, Nitroglycerin Inj 100 MCG, dilTIAZ... IRRIGATION SCH ×3 (12:30)
[2018-05-27] MEDS ORDERED: ceFAZolin 2 GM Premix Inj 2 GM/100 ML BAG IV.SIG SCH (12:39)
[2018-05-27 14:54] LABS: Prothrombin Time 10.3 sec (9.8-11.6)
--- NOTE | 2018-05-27 16:46 | P.PNCV ---
- Note Subjective/Hospital Course: worsening sub q emphysema despite pig tail cath chest tube plan for large bore chest tube in OR in am discussed with pt and family Objective: Vital Signs - 24 hr 05/26/18 17:28 05/26/18 19:04 05/26/18 20:00 Temperature 97.9 F Pulse Rate 94 H 94 H 89 Respiratory Rate 20 20 20 Blood Pressure 180/98 H Pulse Oximetry 92 L 95 05/27/18 00:00 05/27/18 04:00 05/27/18 15:13 Temperature 98.1 F 98.8 F Pulse Rate 61 58 L 77 Respiratory Rate 16 20 20 Blood Pressure 163/79 H 158/93 H Pulse Oximetry 96 93 L GENERAL: A&O SKIN: Warm and dry. subq emphysema to chest arms abdomen and scrotum HEAD: Normocephalic. severe subq emphysema / both eyes very swollen EYES: No scleral icterus. No injection or drainage. NECK: Supple, trachea midline. No JVD or lymphadenopathy. CARDIOVASCULAR: Regular rate and rhythm without murmurs, gallops, or rubs. RESPIRATORY: Breath sounds equal bilaterally. No accessory muscle use. no stridor/ chest tube right upper chest wall GASTROINTESTINAL: Abdomen soft, non-tender, nondistended. MUSCULOSKELETAL: No cyanosis, or edema. BACK: Nontender without obvious deformity. No CVA tenderness. Labs: Laboratory Results - last 12 hr 05/27/18 05/27/18 05/27/18 08:19 12:52 13:43 PT 10.3 INR 1.0 POC Glucose 199 H 236 H Blood Type Blood Type Recheck Antibody Screen 05/27/18 13:43 PT INR POC Glucose Blood Type A Positive Blood Type Recheck Required Antibody Screen Negative Result Diagrams: 05/26/18 07:28 05/26/18 07:28 - Plan (2) Pneumothorax (3) Subcutaneous emphysema Plan: for large bore chest tube tomorrow (2) Pneumothorax Qualifiers: Pneumothorax type: traumatic Encounter type: sequela Qualified Code(s): S27.0XXS - Traumatic pneumothorax, sequela (3) Subcutaneous emphysema Qualifiers: Encounter type: initial encounter Qualified Code(s): T79.7XXA - Traumatic subcutaneous emphysema, initial encounter
--- NOTE | 2018-05-27 18:56 | P.PN ---
Subjective Interval history: He is having some respiratory distress . facial Crepitus and SubQ emphysema is worse. Good output. Chest tube has no leak. Physical Exam Vital signs: Vital Signs 05/26/18 19:04 05/26/18 20:00 05/27/18 00:00 Temperature 97.9 F 98.1 F Pulse Rate 94 H 89 61 Respiratory Rate 20 20 16 Blood Pressure 180/98 H 163/79 H Pulse Oximetry 95 96 05/27/18 04:00 05/27/18 15:13 Temperature 98.8 F Pulse Rate 58 L 77 Respiratory Rate 20 20 Blood Pressure 158/93 H Pulse Oximetry 93 L Intake & Output 05/26/18 05/27/18 05/27/18 18:59 06:59 18:59 Intake Total 480 / 480 100 / 100 340 / 340 Output Total 800 / 800 1335 / 1335 Balance -320 / -320 100 / 100 -995 / -995 Weight 90.7 kg Intake: IV 100 / 100 100 / 100 100 / 100 Maxipime Inj 1,000 MG In NS Inj 100 / 100 100 / 100 100 / 100 100 ML @ 200 mls/hr IV.SIG Q12H VALERIE Rx#:[id number] Oral 380 / 380 240 / 240 Output: Urine 800 / 800 1325 / 1325 Chest Tube Drainage #1 Right Anterior Other: Date of Last Bowel Movement 05/26/18 05/26/18 05/26/18 # Bowel Movements 1 1 Narrative: GENERAL 83 year old elderly male, with severe periorbital edema.and SubQ air. SKIN: Warm and dry. HEAD: Normocephalic. EYES: No scleral icterus. No injection or drainage. Has bilateral puffy and swollen eyelids NECK: Supple, trachea midline. No JVD or lymphadenopathy. CARDIOVASCULAR: Regular rate and rhythm without murmurs, gallops, or rubs. RESPIRATORY: Breath sounds decreased bilaterally, mild wheezing. Sub q emphysema noted to chest, arms, fingertips with crepitus . Right anterior chest wall with pigtail CT in. GASTROINTESTINAL: Abdomen soft, non-tender, nondistended. MUSCULOSKELETAL: No cyanosis, trace pretibial edema. BACK: Nontender without obvious deformity. No CVA tenderness. NEURO: awakes to voice, oriented x 3, follows commands. no gross deficit. Can't open eyes Results - Labs CBC & Chem 7: 05/26/18 07:28 05/26/18 07:28 Laboratory Results - last 24 hr 05/26/18 05/26/18 05/26/18 19:10 19:41 22:00 PT INR Puncture Site Right radial Patient Temperature 98.6 O2 Saturation 95 ABG pH 7.44 H ABG pCO2 40 ABG pO2 90 ABG HCO3 27 H ABG O2 Content 17.2 ABG Base Excess 2.7 H ABG Methemoglobin 1.2 Luis Test Present Hemoglobin 12.9 Carboxyhemoglobin 1.2 O2 Delivery Device Nasal cannula Liter Flow 4.00 Inspired O2 0 Critical Value No POC Glucose 184 H Nasal Screen MRSA (PCR) Not detected Blood Type Blood Type Recheck Antibody Screen 05/27/18 05/27/18 05/27/18 08:19 12:52 13:43 PT 10.3 INR 1.0 Puncture Site Patient Temperature O2 Saturation ABG pH ABG pCO2 ABG pO2 ABG HCO3 ABG O2 Content ABG Base Excess ABG Methemoglobin Luis Test Hemoglobin Carboxyhemoglobin O2 Delivery Device Liter Flow Inspired O2 Critical Value POC Glucose 199 H 236 H Nasal Screen MRSA (PCR) Blood Type Blood Type Recheck Antibody Screen 05/27/18 05/27/18 13:43 17:39 PT INR Puncture Site Patient Temperature O2 Saturation ABG pH ABG pCO2 ABG pO2 ABG HCO3 ABG O2 Content ABG Base Excess ABG Methemoglobin Luis Test Hemoglobin Carboxyhemoglobin O2 Delivery Device Liter Flow Inspired O2 Critical Value POC Glucose 249 H Nasal Screen MRSA (PCR) Blood Type A Positive Blood Type Recheck Required Antibody Screen Negative - Imaging Impressions Chest X-Ray 05/26/18 18:52 CONCLUSION: Overall appearance of the chest and lungs is similar to prior with extensive subcutaneous emphysema, no evidence of mediastinal shift, pneumomediastinum and chest catheter projected at the right apex. Chest X-Ray 05/27/18 00:00 CONCLUSION: Unchanged exam. No pneumothorax. Extensive subcutaneous air. Left lower lobe infiltrate. Assessment and Plan - Assessment (1) Chest wall contusion Code(s): S20.219A - Contusion of unspecified front wall of thorax, initial encounter Status: Acute (2) Contusion, shoulder /upper arm Status: Acute (3) Acute exacerbation of chronic obstructive airways disease Code(s): J44.1 - Chronic obstructive pulmonary disease with (acute) exacerbation Status: Acute (4) Syncope Code(s): R55 - Syncope and collapse Status: Acute (5) Pneumonia Code(s): J18.9 - Pneumonia, unspecified organism Status: Acute (6) COPD (chronic obstructive pulmonary disease) Code(s): J44.9 - Chronic obstructive pulmonary disease, unspecified Status: Acute (7) Pneumothorax Code(s): J93.9 - Pneumothorax, unspecified Status: Acute (8) Subcutaneous emphysema Code(s): T79.7XXA - Traumatic subcutaneous emphysema, initial encounter Status : Acute (9) Ribs, multiple fractures Code(s): S22.49XA - Multiple fractures of ribs, unspecified side, initial encounter for closed fracture Status: Acute - Plan 1. O2 at 4 L. N/C 2. Cont Duoneb nebs qid. 3. Continue antibiotics Cefipime 1 G IV Q8H 4. CXR,CBC, BMP in am 5. Symbicort 160/4.5 mcg 2 puffs BID 6. Cont Solumedrol 40 mg IV BID 7. IS at bedside q2h 8. will go for Vats thoracoscopy and chest tube placement. (7) Pneumothorax Qualifiers: Pneumothorax type: traumatic Encounter type: sequela Qualified Code(s): S27.0XXS - Traumatic pneumothorax, sequela (8) Subcutaneous emphysema Qualifiers: Encounter type: initial encounter Qualified Code(s): T79.7XXA - Traumatic subcutaneous emphysema, initial encounter
--- NOTE | 2018-05-27 20:46 | CT ---
EXAM DATE: 05/27/2018 8:37 PM EDT AGE/SEX: 83 years / Male INDICATIONS: Sub q air pneumothorax chest tube CLINICAL DATA: This is the patient's initial encounter. Patient reports that signs and symptoms have been present for 1 day and indicates a pain score of 4/10. MEDICAL/SURGICAL HISTORY: Chronic obstructive pulmonary disease. Chest tube, right. RADIATION DOSE: 13.70 CTDI (mGy) [place] [facility] [place]. . TECHNIQUE: Multiple contiguous axial images were obtained through the chest without contrast. Image s were obtained in suspended respiration using multiple row detector helical technique. Using automa edilma exposure control and adjustment of the mA and/or kV according to patient size, radiation dose was kept as low as reasonably achievable to obtain optimal diagnostic quality images. DICOM format imag e data is available electronically for review and comparison. FINDINGS: Lungs: Significant reduction in the size of the right lower anterior pneumothorax, now measuring 6 m m (previously measured 2.3 cm. No pneumothorax at the apex. Chest pigtail catheter at the upper right chest is in place. There is a very tiny pneumothorax posterior in the left costophrenic angle measur ing 6 mm in AP dimension, a new finding from prior.. Mediastinum: Pneumomediastinum without pneumopericardium stable from prior. Pleurae: No evidence of focal thickening or pleural effusion. Bony Structures: Stable right rib fractures. Miscellaneous: Extensive diffuse subcutaneous emphysema about the entire chest extending into the ne ck, similar in severity to prior. CONCLUSION: 1. Chest drainage catheter at the right apex. No apical pneumothorax seen. 2. Small right basilar pneumothorax, smaller than on prior. 3. New tiny left pneumothorax in the costophrenic angle. 4. Stable severity to the extensive subcutaneous emphysema and pneumomediastinum. Electronically signed by: Javier Marcum MD 05/27/2018 8:45 PM EDT
[2018-05-28 05:53] LABS: Hematocrit 39.1 % (39.0-51.0); Hemoglobin 13.1 gm/dL (13.0-17.0); Mean Corpuscular HGB Conc 33.6 % (32.0-36.0); Mean Corpuscular Hemoglobin 28.6 pg (27.0-34.0); Mean Corpuscular Volume 84.9 fL (80.0-100.0); Mean Platelet Volume 6.6 fL (7.0-11.0); Platelet Count 221 th/mm3 (150-450); Red Cell Distribution Width 14.3 % (11.6-17.2); White Blood Count 12.2 th/mm3 (4.0-11.0)
[2018-05-28 06:13] LABS: Calcium 8.6 mg/dL (8.5-10.1); Carbon Dioxide 30.2 meq/L (21.0-32.0); Potassium 4.8 meq/L (3.5-5.1)
--- NOTE | 2018-05-28 08:34 | P.PNIM ---
Subjective Interval history: f/u; pneumothorax in no acute distress. still with facial swelling. has mild sob. chest tube in place. d/w the RN. Physical Exam Vital signs: Vital Signs 05/27/18 09:00 05/27/18 12:00 05/27/18 15:13 Temperature 97.6 F Pulse Rate 69 72 77 Respiratory Rate 24 20 Blood Pressure 158/72 H Pulse Oximetry 95 05/27/18 16:00 05/27/18 19:57 05/27/18 20:00 Temperature 98.1 F 98.2 F Pulse Rate 68 76 78 Respiratory Rate 16 22 18 Blood Pressure 154/71 H 167/73 H Pulse Oximetry 95 95 100 05/28/18 00:00 05/28/18 04:00 05/28/18 04:22 Temperature 97.6 F 99.1 F Pulse Rate 60 63 62 Respiratory Rate 16 13 20 Blood Pressure 166/77 H 164/74 H Pulse Oximetry 97 98 05/28/18 08:24 Temperature Pulse Rate Respiratory Rate Blood Pressure Pulse Oximetry 97 Intake & Output 05/27/18 05/28/18 05/28/18 18:59 06:59 18:59 Intake Total 340 / 340 860 / 860 Output Total 1335 / 1335 1000 / 1000 Balance -995 / -995 -140 / -140 Weight 89.6 kg Intake: IV 100 / 100 100 / 100 Maxipime Inj 1,000 MG In NS Inj 100 / 100 100 / 100 100 ML @ 200 mls/hr IV.SIG Q12H [facility] Rx#:[id number] Oral 240 / 240 760 / 760 Output: Urine 1325 / 1325 1000 / 1000 Chest Tube Drainage 10 / 10 0 / 0 #1 Right Anterior 10 / 10 0 / 0 Other: # Voids 4 Date of Last Bowel Movement 05/27/18 05/27/18 # Bowel Movements 1 2 - Constitutional no acute distress - Routine HEENT Exam Comments: facial swelling. - Routine Respiratory Exam Present: CTA bilaterally - Routine Cardiovascular Exam Present: RRR - Routine Abdominal Exam Present: soft - Routine Extremities Exam Comments: bilateral pedal edema. - Routine Neurological Exam Present: alert, oriented X3 Results - Labs CBC & Chem 7: 05/28/18 05:24 05/28/18 05:24 Laboratory Results - last 24 hr 05/27/18 05/27/18 05/27/18 12:52 13:43 13:43 WBC RBC Hgb Hct MCV MCH MCHC RDW Plt Count MPV PT 10.3 INR 1.0 Sodium Potassium Chloride Carbon Dioxide Anion Gap BUN Creatinine Estimated GFR POC Glucose 236 H Random Glucose Calcium Blood Type A Positive Blood Type Recheck Required Antibody Screen Negative 05/27/18 05/27/18 05/28/18 17:39 21:09 05:24 WBC 12.2 H RBC 4.60 Hgb 13.1 Hct 39.1 MCV 84.9 MCH 28.6 MCHC 33.6 RDW 14.3 Plt Count 221 MPV 6.6 L PT INR Sodium Potassium Chloride Carbon Dioxide Anion Gap BUN Creatinine Estimated GFR POC Glucose 249 H 279 H Random Glucose Calcium Blood Type Blood Type Recheck Antibody Screen 05/28/18 05/28/18 05:24 07:45 WBC RBC Hgb Hct MCV MCH MCHC RDW Plt Count MPV PT INR Sodium 136 Potassium 4.8 Chloride 100 Carbon Dioxide 30.2 Anion Gap 6 BUN 38 H Creatinine 1.15 Estimated GFR 61 L POC Glucose 223 H Random Glucose 211 H Calcium 8.6 Blood Type Blood Type Recheck Antibody Screen - Imaging Impressions Chest CT 05/27/18 00:00 CONCLUSION: 1. Chest drainage catheter at the right apex. No apical pneumothorax seen. 2. Small right basilar pneumothorax, smaller than on prior. 3. New tiny left pneumothorax in the costophrenic angle. 4. Stable severity to the extensive subcutaneous emphysema and pneumomediastinum. Assessment and Plan - Assessment (1) Syncope Code(s): R55 - Syncope and collapse Status: Acute (2) PNA (pneumonia) Code(s): J18.9 - Pneumonia, unspecified organism Status: Acute (3) COPD (chronic obstructive pulmonary disease) Code(s): J44.9 - Chronic obstructive pulmonary disease, unspecified Status: Acute (4) Pneumothorax Code(s): J93.9 - Pneumothorax, unspecified Status: Acute (5) Subcutaneous emphysema Code(s): T79.7XXA - Traumatic subcutaneous emphysema, initial encounter Status : Acute - Plan Community-acquired pneumonia; failed outpatient therapy -continue cefepime. -continue with DuoNeb as needed, maintain oxygen saturation above 92% Right chest wall contusion secondary to syncope, found with right rib fractures 9 through 11, traumatic right pneumothorax and subq emphysema -appreciate pulmonary input -IR consult for CT placement. Status post chest tube placement 05/25/2018 -continue with oxygen. -IS -Remains with significant subcutaneous emphysema. -CT surgery consulted and plan for VATS and large-bore chest tube placement today. Syncope: acute syncopal event CT Head w/ no acute findings, images reviewed. Initial trop negative -serial cardiac enzymes negative -PT for eval/tx. -Follows w/ Dr. Foss, will consult as needed. -2D echo with EF 50-55%. -V/Q negative for PE COPD: Chronic Respiratory Failure w/ Acute Exacerbation. Moderate. -DuoNeb scheduled and as needed, -Solu-Medrol 40mg BID -DuoNeb, Symbicort. -Monitor O2. Hypertension Remains elevated -On [id number] daily -Clonidine PRN -added Lopressor 12.5 mg p.o. twice daily. Anaphylactic reaction?. Pt. protecting airway. -Treated per protocol with Zantac, Benadryl. Discharge Planning: for chest tube placement today. not ready for discharge. (4) Pneumothorax Qualifiers: Pneumothorax type: traumatic Encounter type: sequela Qualified Code(s): S27.0XXS - Traumatic pneumothorax, sequela (5) Subcutaneous emphysema Qualifiers: Encounter type: initial encounter Qualified Code(s): T79.7XXA - Traumatic subcutaneous emphysema, initial encounter
[2018-05-28] MEDS: Insulin NovoLOG Aspart Correctional Sugar Inj SQ SCH ×3 (08:55→23:23)
[2018-05-28] MEDS: amLODIPine 10 MG Tablet PO SCH (08:56)
[2018-05-28] MEDS: Metoprolol Tartrate 25 MG Tablet PO SCH ×2 (08:56→22:49)
[2018-05-28] MEDS: Senna/Docusate Sodium 8.6/50 MG Tablet PO SCH ×2 (08:56→22:50)
[2018-05-28] MEDS: Azithromycin 250 MG Tablet PO SCH (08:56)
[2018-05-28] MEDS: MethylPREDNISolone Sod Succinate Inj 40 MG/ML Vial IV.PUSH SCH ×2 (08:56→22:49)
[2018-05-28] MEDS: Budesonide-Formoterol 160/4.5 MCG 6 GM Inhaler INH SCH ×2 (09:01→23:26)
[2018-05-28] MEDS ORDERED: Labetalol HCl Inj 100 MG/20 ML Vial IV.CONT ONE (13:27)
[2018-05-28] MEDS ORDERED: Lidocaine PF 1% Inj 5 ML Syringe INFILTRATN ONE (13:27)
[2018-05-28] MEDS ORDERED: Bupivacaine/Epinephrine PF Inj 0.5% 30 ML Vial ONE (13:33)
--- NOTE | 2018-05-28 13:50 | P.OP ---
- Preoperative Diagnosis (1) Pneumothorax (2) Subcutaneous emphysema - Postoperative Diagnosis (1) COPD (chronic obstructive pulmonary disease) (2) Pneumothorax (3) Subcutaneous emphysema Date of procedure: 05/28/18 Procedure: right chest tube placement Anesthesia: MAC Surgeon: Lizz Anthony MD Assistant Film Editor: Mook Lentz Pathology: none sent Operation and Findings: Informed consent was obtained for the procedure, including sedation. Risks of lung perforation, hemorrhage, arrhythmia, and adverse drug reaction were discussed. After skin prep and draping, using standard technique, a 32 Danish tube was placed in the right hemithorax and secured with a 0 silk suture..
[2018-05-28] MEDS ORDERED: fentaNYL Citrate Inj 100 MCG/2 ML Ampul ONE (14:04)
--- NOTE | 2018-05-28 14:44 | XR ---
EXAM DATE: 05/28/2018 2:14 PM EDT AGE/SEX: 83 years / Male INDICATIONS: Evaluate for pneumothorax. CLINICAL DATA: This is the patient's initial encounter. Patient reports that signs and symptoms have been present for 1 day and indicates a pain score of Nonresponsive. MEDICAL/SURGICAL HISTORY: . Myocardial infarction. Emphysema. Chronic obstructive pulmonary dis ease. None. COMPARISON: [facility] – [place], CHEST 1V SINGLE AP, 05/27/2018. . FINDINGS: Extensive subcutis emphysema is present in spite of the [address] on the right. Moderate compensated cardiomegaly. CONCLUSION: Chest tube in good position on the right. Extensive subcutaneous emphysema. Electronically signed by: Todd Montano MD 05/28/2018 2:42 PM EDT
[2018-05-28] MEDS: Acetaminophen 325 MG Tablet PO PRN ×2 (18:15→22:52)
--- NOTE | 2018-05-28 18:25 | P.PN ---
Subjective Interval history: alert and still has extensive Subcutaneous Emphysema of the Chest face abdomen and neck On O2 3 L.Will have Chest tube by Dr Anthony Physical Exam Vital signs: Vital Signs 05/27/18 19:57 05/27/18 20:00 05/28/18 00:00 Temperature 98.2 F 97.6 F Pulse Rate 76 78 60 Respiratory Rate 22 18 16 Blood Pressure 167/73 H 166/77 H Pulse Oximetry 95 100 97 05/28/18 04:00 05/28/18 04:22 05/28/18 08:00 Temperature 99.1 F 97.8 F Pulse Rate 63 62 68 Respiratory Rate 13 20 14 Blood Pressure 164/74 H 168/84 H Pulse Oximetry 98 97 05/28/18 08:24 05/28/18 09:00 05/28/18 12:05 Temperature 97.8 F Pulse Rate 60 71 Respiratory Rate 18 Blood Pressure 174/81 H Pulse Oximetry 97 95 05/28/18 14:00 05/28/18 14:05 05/28/18 14:15 Temperature 97.7 F Pulse Rate 64 Respiratory Rate 16 Blood Pressure 173/89 H Pulse Oximetry 94 L 94 L 95 Intake & Output 05/27/18 05/28/18 05/28/18 18:59 06:59 18:59 Intake Total 340 / 340 860 / 860 400 / 400 Output Total 1335 / 1335 1000 / 1000 5 / 5 Balance -995 / -995 -140 / -140 395 / 395 Weight 89.6 kg Intake: IV 100 / 100 100 / 100 100 / 100 Maxipime Inj 1,000 MG In NS Inj 100 / 100 100 / 100 100 / 100 100 ML @ 200 mls/hr IV.SIG Q12H [facility] Rx#:[id number] Oral 240 / 240 760 / 760 Anesthesia Amount 300 / 300 Output: Urine 1325 / 1325 1000 / 1000 Estimated Blood Loss 5 / 5 Chest Tube Drainage 10 / 10 0 / 0 #1 Right Anterior 10 10 0 / 0 Other: # Voids 4 Date of Last Bowel Movement 05/27/18 05/27/18 05/27/18 # Bowel Movements 1 2 Narrative: GENERAL 83 year old elderly male, with severe periorbital edema.and SubQ air over upper chest and neck and Face . SKIN: Warm and dry. HEAD: Normocephalic. EYES: No scleral icterus. . Has bilateral puffy and swollen eyelids NECK: Supple, trachea midline. No JVD or lymphadenopathy. CARDIOVASCULAR: Regular rate and rhythm without murmurs, gallops, or rubs. RESPIRATORY: Breath sounds decreased bilaterally, mild wheezing. Sub q emphysema noted to chest, arms, fingertips with crepitus . Right anterior chest wall with pigtail CT in. GASTROINTESTINAL: Abdomen soft, non-tender, nondistended. MUSCULOSKELETAL: No cyanosis, trace edema. BACK: Nontender without obvious deformity. No CVA tenderness. NEURO: awakes to voice, oriented x 3, follows commands. no gross deficit. Can't open eyes Results - Labs CBC & Chem 7: 05/28/18 05:24 05/28/18 05:24 Laboratory Results - last 24 hr 05/27/18 05/28/18 05/28/18 21:09 05:24 05:24 WBC 12.2 H RBC 4.60 Hgb 13.1 Hct 39.1 MCV 84.9 MCH 28.6 MCHC 33.6 RDW 14.3 Plt Count 221 MPV 6.6 L Sodium 136 Potassium 4.8 Chloride 100 Carbon Dioxide 30.2 Anion Gap 6 BUN 38 H Creatinine 1.15 Estimated GFR 61 L POC Glucose 279 H Random Glucose 211 H Calcium 8.6 05/28/18 05/28/18 07:45 15:42 WBC RBC Hgb Hct MCV MCH MCHC RDW Plt Count MPV Sodium Potassium Chloride Carbon Dioxide Anion Gap BUN Creatinine Estimated GFR POC Glucose 223 H 194 H Random Glucose Calcium - Imaging Impressions Chest CT 05/27/18 00:00 CONCLUSION: 1. Chest drainage catheter at the right apex. No apical pneumothorax seen. 2. Small right basilar pneumothorax, smaller than on prior. 3. New tiny left pneumothorax in the costophrenic angle. 4. Stable severity to the extensive subcutaneous emphysema and pneumomediastinum. Chest X-Ray 05/28/18 13:51 CONCLUSION: Chest tube in good position on the right. Extensive subcutaneous emphysema. Assessment and Plan - Assessment (1) Chest wall contusion Code(s): S20.219A - Contusion of unspecified front wall of thorax, initial encounter Status: Acute (2) Contusion, shoulder /upper arm Status: Acute (3) Acute exacerbation of chronic obstructive airways disease Code(s): J44.1 - Chronic obstructive pulmonary disease with (acute) exacerbation Status: Acute (4) Syncope Code(s): R55 - Syncope and collapse Status: Acute (5) Pneumonia Code(s): J18.9 - Pneumonia, unspecified organism Status: Acute (6) COPD (chronic obstructive pulmonary disease) Code(s): J44.9 - Chronic obstructive pulmonary disease, unspecified Status: Acute (7) Pneumothorax Code(s): J93.9 - Pneumothorax, unspecified Status: Acute (8) Subcutaneous emphysema Code(s): T79.7XXA - Traumatic subcutaneous emphysema, initial encounter Status : Acute (9) Ribs, multiple fractures Code(s): S22.49XA - Multiple fractures of ribs, unspecified side, initial encounter for closed fracture Status: Acute (10) Ribs, multiple fractures Code(s): S22.49XA - Multiple fractures of ribs, unspecified side, initial encounter for closed fracture Status: Acute - Plan 1. Cont O2 at 4 L. N/C 2. Cont Duoneb nebs qid. 3. Continue antibiotics . 4. CXR,CBC, BMP in am 5. Symbicort 160/4.5 mcg 2 puffs BID 6. Cont Solumedrol 40 mg IV BID 7. IS at bedside q2h 8. Diet as tolerated (7) Pneumothorax Qualifiers: Pneumothorax type: traumatic Encounter type: sequela Qualified Code(s): S27.0XXS - Traumatic pneumothorax, sequela (8) Subcutaneous emphysema Qualifiers: Encounter type: initial encounter Qualified Code(s): T79.7XXA - Traumatic subcutaneous emphysema, initial encounter
[2018-05-29] MEDS: Temazepam 15 MG Capsule PO PRN (00:25)
[2018-05-29] MEDS: Insulin NovoLOG Aspart Correctional Sugar Inj SQ SCH ×6 (08:37→21:45)
[2018-05-29] MEDS: Metoprolol Tartrate 25 MG Tablet PO SCH ×2 (08:38→22:13)
[2018-05-29] MEDS: amLODIPine 10 MG Tablet PO SCH (08:38)
[2018-05-29] MEDS: Azithromycin 250 MG Tablet PO SCH (08:38)
[2018-05-29] MEDS: Senna/Docusate Sodium 8.6/50 MG Tablet PO SCH ×2 (08:39→22:13)
--- NOTE | 2018-05-29 08:53 | P.PNCV ---
- Note CVT: Post Op Day #: 1 Subjective/Hospital Course: worsening sub q emphysema despite pig tail cath chest tube plan for large bore chest tube in OR in am discussed with pt and family 05/29/18 Subcutaneous emphysema subjectively improved as he can now open one eye. Good appetite Objective: Vital Signs - 24 hr 05/28/18 09:00 05/28/18 12:05 05/28/18 14:00 Temperature 97.8 F 97.7 F Pulse Rate 60 71 64 Respiratory Rate 18 16 Blood Pressure 174/81 H 173/89 H Pulse Oximetry 95 94 L 05/28/18 14:05 05/28/18 14:15 05/28/18 16:00 Temperature 98 F Pulse Rate 64 Respiratory Rate 16 Blood Pressure 172/87 H Pulse Oximetry 94 L 95 94 L 05/28/18 20:00 05/28/18 22:50 05/28/18 23:07 Temperature 98.4 F Pulse Rate 74 65 Respiratory Rate 18 20 Blood Pressure 175/88 H Pulse Oximetry 96 99 05/29/18 00:00 05/29/18 04:00 05/29/18 08:00 Temperature 98.5 F 98.8 F 98 F Pulse Rate 55 L 53 L 63 Respiratory Rate 24 22 Blood Pressure 182/87 H 161/79 H 156/91 H Pulse Oximetry 97 97 95 Labs: Laboratory Results - last 12 hr 05/28/18 05/29/18 23:09 07:06 POC Glucose 191 H 215 H Result Diagrams: 05/28/18 05:24 05/28/18 05:24 Imaging: Head CT 05/20/18 19:09 CONCLUSION: 1. Stable chronic changes with symmetric cortical atrophy and moderately severe periventricular and deep white matter tracts small vessel ischemic demyelination. 2. Nothing acute. Pulmonary Perfusion Imaging 05/20/18 19:56 CONCLUSION: 1. Mild central trapping on the ventilatory images could represent some degree of COPD. 2. Otherwise, low probability scan for pulmonary embolus. Chest Tube Insertion 05/25/18 00:00 CONCLUSION: Uncomplicated fluoroscopic guided pigtail chest tube placement as above for pneumothorax. Chest CT 05/27/18 00:00 CONCLUSION: 1. Chest drainage catheter at the right apex. No apical pneumothorax seen. 2. Small right basilar pneumothorax, smaller than on prior. 3. New tiny left pneumothorax in the costophrenic angle. 4. Stable severity to the extensive subcutaneous emphysema and pneumomediastinum. Chest X-Ray 05/28/18 13:51 CONCLUSION: Chest tube in good position on the right. Extensive subcutaneous emphysema. Cardiovascular: RRR Pulmonary: CTA CT: minimal - Plan (2) Pneumothorax (3) Subcutaneous emphysema Plan: for large bore chest tube tomorrow Transfer to stepdown ambulate with assist, up to chair CXR in AM Continue chest tube to suction (2) Pneumothorax Qualifiers: Pneumothorax type: traumatic Encounter type: sequela Qualified Code(s): S27.0XXS - Traumatic pneumothorax, sequela (3) Subcutaneous emphysema Qualifiers: Encounter type: initial encounter Qualified Code(s): T79.7XXA - Traumatic subcutaneous emphysema, initial encounter
--- NOTE | 2018-05-29 09:30 | P.PN ---
Subjective Interval history: Follow-up pneumothorax/emphysema May 29, 2018-patient seen and examined, no acute event overnight, still short of breath. Dr. Crane at bedside Physical Exam Vital signs: Vital Signs 05/28/18 12:05 05/28/18 14:00 05/28/18 14:05 Temperature 97.8 F 97.7 F Pulse Rate 71 64 Respiratory Rate 18 16 Blood Pressure 174/81 H 173/89 H Pulse Oximetry 95 94 L 94 L 05/28/18 14:15 05/28/18 16:00 05/28/18 20:00 Temperature 98 F 98.4 F Pulse Rate 64 74 Respiratory Rate 16 18 Blood Pressure 172/87 H 175/88 H Pulse Oximetry 95 94 L 96 05/28/18 22:50 05/28/18 23:07 05/29/18 00:00 Temperature 98.5 F Pulse Rate 65 55 L Respiratory Rate 20 24 Blood Pressure 182/87 H Pulse Oximetry 99 97 05/29/18 04:00 05/29/18 08:00 Temperature 98.8 F 98 F Pulse Rate 53 L 63 Respiratory Rate 22 Blood Pressure 161/79 H 156/91 H Pulse Oximetry 97 95 Intake & Output 05/28/18 05/29/18 05/29/18 18:59 06:59 18:59 Intake Total 500 / 500 820 / 820 Output Total 905 / 905 918 / 918 Balance -405 / -405 -98 / -98 Weight 88 kg Intake: IV 100 / 100 100 / 100 Maxipime Inj 1,000 MG In NS Inj 100 / 100 100 / 100 100 ML @ 200 mls/hr IV.SIG Q12H [facility] Rx#:[id number] Oral 100 / 100 720 / 720 Anesthesia Amount 300 / 300 Output: Urine 900 / 900 900 / 900 Estimated Blood Loss 5 / 5 Chest Tube Drainage 0 / 0 #1 Right Anterior 0 / 0 8 / 8 #2 Right Anterior 0 / 0 Other: # Voids 4 Date of Last Bowel Movement 05/27/18 05/27/18 05/29/18 # Bowel Movements 0 0 Narrative: GENERAL 83 year old elderly male, with severe periorbital edema.and SubQ air over upper chest and neck and Face . SKIN: Warm and dry. HEAD: Normocephalic. EYES: No scleral icterus. . Has bilateral puffy and swollen eyelids NECK: Supple, trachea midline. No JVD or lymphadenopathy. CARDIOVASCULAR: Regular rate and rhythm without murmurs, gallops, or rubs. RESPIRATORY: Breath sounds decreased bilaterally, mild wheezing. Sub q emphysema noted to chest, arms, fingertips with crepitus . Right anterior chest wall with pigtail CT in. GASTROINTESTINAL: Abdomen soft, non-tender, nondistended. MUSCULOSKELETAL: No cyanosis, trace edema. BACK: Nontender without obvious deformity. No CVA tenderness. NEURO: awakes to voice, oriented x 3, follows commands. no gross deficit. Results - Labs CBC & Chem 7: 05/28/18 05:24 05/28/18 05:24 Laboratory Results - last 24 hr 05/28/18 05/28/18 05/29/18 15:42 23:09 07:06 POC Glucose 194 H 191 H 215 H - Imaging Impressions Chest X-Ray 05/28/18 13:51 CONCLUSION: Chest tube in good position on the right. Extensive subcutaneous emphysema. Assessment and Plan - Assessment (1) Syncope Code(s): R55 - Syncope and collapse Status: Acute (2) PNA (pneumonia) Code(s): J18.9 - Pneumonia, unspecified organism Status: Acute (3) COPD (chronic obstructive pulmonary disease) Code(s): J44.9 - Chronic obstructive pulmonary disease, unspecified Status: Acute (4) Pneumothorax Code(s): J93.9 - Pneumothorax, unspecified Status: Acute (5) Subcutaneous emphysema Code(s): T79.7XXA - Traumatic subcutaneous emphysema, initial encounter Status : Acute - Plan 83-year-old man with Community-acquired pneumonia; failed outpatient therapy -continue cefepime. -continue with DuoNeb as needed, maintain oxygen saturation above 92% Right chest wall contusion secondary to syncope, found with right rib fractures 9 through 11, traumatic right pneumothorax and subq emphysema -appreciate pulmonary input -IR consult for CT placement. Status post chest tube placement 05/25/2018 -continue with oxygen. -Remains with significant subcutaneous emphysema. -Appreciate input from cardiothoracic surgery Chest tube management per cardiothoracic surgery. Syncope: acute syncopal event CT Head w/ no acute findings, images reviewed. Initial trop negative -serial cardiac enzymes negative -PT for eval/tx. -Follows w/ Dr. Foss, will consult as needed. -2D echo with EF 50-55%. -V/Q negative for PE COPD: Chronic Respiratory Failure w/ Acute Exacerbation. -DuoNeb scheduled and as needed, -Solu-Medrol 40mg BID -DuoNeb, Symbicort. -Monitor O2. Hypertension -On [id number] daily -Clonidine PRN -Lopressor 12.5 mg p.o. twice daily. (4) Pneumothorax Qualifiers: Pneumothorax type: traumatic Encounter type: sequela Qualified Code(s): S27.0XXS - Traumatic pneumothorax, sequela (5) Subcutaneous emphysema Qualifiers: Encounter type: initial encounter Qualified Code(s): T79.7XXA - Traumatic subcutaneous emphysema, initial encounter
[2018-05-29] MEDS: Acetaminophen 325 MG Tablet PO PRN ×2 (10:23→18:11)
--- NOTE | 2018-05-29 11:05 | P.PNPL ---
Subjective Interval history: Patient is on 4L oxygen with good sats, s/p right CT placement yesterday by CTS. Afebrile. Physical Exam Vital signs: Vital Signs 05/28/18 12:05 05/28/18 14:00 05/28/18 14:05 Temperature 97.8 F 97.7 F Pulse Rate 71 64 Respiratory Rate 18 16 Blood Pressure 174/81 H 173/89 H Pulse Oximetry 95 94 L 94 L 05/28/18 14:15 05/28/18 16:00 05/28/18 20:00 Temperature 98 F 98.4 F Pulse Rate 64 74 Respiratory Rate 16 18 Blood Pressure 172/87 H 175/88 H Pulse Oximetry 95 94 L 96 05/28/18 22:50 05/28/18 23:07 05/29/18 00:00 Temperature 98.5 F Pulse Rate 65 55 L Respiratory Rate 20 24 Blood Pressure 182/87 H Pulse Oximetry 99 97 05/29/18 04:00 05/29/18 08:00 Temperature 98.8 F 98 F Pulse Rate 53 L 63 Respiratory Rate 22 Blood Pressure 161/79 H 156/91 H Pulse Oximetry 97 95 Intake & Output 05/28/18 05/29/18 05/29/18 18:59 06:59 18:59 Intake Total 500 / 500 820 / 820 Output Total 905 / 905 918 / 918 Balance -405 / -405 -98 / -98 Weight 88 kg Intake: IV 100 / 100 100 / 100 Maxipime Inj 1,000 MG In NS Inj 100 / 100 100 / 100 100 ML @ 200 mls/hr IV.SIG Q12H [facility] Rx#:[id number] Oral 100 / 100 720 / 720 Anesthesia Amount 300 / 300 Output: Urine 900 / 900 900 / 900 Estimated Blood Loss 5 / 5 Chest Tube Drainage 0 / 0 18 #1 Right Anterior 0 / 0 8 / 8 #2 Right Anterior 0 / 0 10 / 10 Other: # Voids 4 Date of Last Bowel Movement 05/27/18 05/27/18 05/29/18 # Bowel Movements 0 0 - Constitutional no acute distress - Routine HEENT Exam Head: Present: normocephalic Eye: Present: EOMI, PERRL, normal accommodation, conjunctivae pink ENT: Present: mucous membranes moist - Routine Neck Exam Present: supple, full ROM, trachea midline - Routine Respiratory Exam Present: CTA bilaterally - Routine Cardiovascular Exam Present: RRR, S1, S2 - Routine Abdominal Exam Present: soft, normoactive bowel sounds - Routine Extremities Exam Present: full ROM, pulses intact - Routine Skin Exam Present: intact - Routine Neurological Exam Present: alert, oriented X3, CN II-XII intact - Routine Psychiatric Exam Present: normal affect Assessment and Plan - Plan 1)Resp Insuff 2)Right sided PTX s/p CT placement 3)Sub Q emphysema 4)Chest wall contusion 5)COPD- On 4L home oxygen 6)Multiple rib fractures 7)HTN Plan Continue with oxygen keep sats >92% Bronchodilators(DuoNeb, Symbicort), IS Continue with Solumederol 40mg Q12 s/p right CT placement by Dr. Cash, check CXR Continue abx ( Azithromycin, Cefepime)monitor for signs of infections ( Fever, WBC) Continue treatment plan
--- NOTE | 2018-05-29 11:40 | XR ---
EXAM DATE: 05/29/2018 11:30 AM EDT AGE/SEX: 83 years / Male INDICATIONS: Evaluate for pneumothorax. CLINICAL DATA: This is the patient's subsequent encounter. Patient reports that signs and symptoms h ave been present for 3 days and indicates a pain score of 0/10. MEDICAL/SURGICAL HISTORY: Chronic obstructive pulmonary disease. Emphysema. Myocardial infarct ion. None. COMPARISON: [facility] [place], CHEST 1V SINGLE AP, 05/28/2018. . FINDINGS: A single AP view of the chest demonstrates right-sided chest tubes without pneumothorax. Subcutaneous emphysema bilaterally. Minimal bibasilar densities. Heart mildly enlarged. The cardiomediastinal con tours are unremarkable. Osseous structures are intact. CONCLUSION: No pneumothorax Electronically signed by: Edilberto Fletcher MD 05/29/2018 11:38 AM EDT
[2018-05-29] MEDS: Budesonide-Formoterol 160/4.5 MCG 6 GM Inhaler INH SCH ×2 (13:09→22:13)
[2018-05-30] MEDS: Temazepam 15 MG Capsule PO PRN ×2 (01:34→21:27)
[2018-05-30] MEDS: Acetaminophen 325 MG Tablet PO PRN (01:34)
--- NOTE | 2018-05-30 09:40 | P.PNPL ---
Subjective Interval history: Patient is on 4L oxygen, afebrile feels SOB Physical Exam Vital signs: Vital Signs 05/29/18 11:13 05/29/18 12:00 05/29/18 16:00 Temperature 98 F 97.8 F Pulse Rate 64 66 Respiratory Rate Blood Pressure 145/80 H 145/56 H Pulse Oximetry 95 95 95 05/29/18 17:18 05/29/18 20:00 05/29/18 21:41 Temperature 98.3 F Pulse Rate 62 Respiratory Rate Blood Pressure 183/87 H Pulse Oximetry 95 97 98 05/29/18 23:58 05/30/18 00:00 05/30/18 01:46 Temperature 97.8 F Pulse Rate 64 64 57 L Respiratory Rate 20 Blood Pressure 157/73 H Pulse Oximetry 100 100 05/30/18 04:00 05/30/18 06:14 05/30/18 09:24 Temperature 97.8 F Pulse Rate 64 56 L 72 Respiratory Rate 20 20 Blood Pressure 181/77 H Pulse Oximetry 100 Intake & Output 05/29/18 05/30/18 05/30/18 18:59 06:59 18:59 Intake Total 1100 / 1100 340 / 340 Output Total 750 / 750 800 / 800 Balance 350 / 350 -460 / -460 Weight 89 kg Intake: IV 100 / 100 100 / 100 Maxipime Inj 1,000 MG In NS Inj 100 / 100 100 / 100 100 ML @ 200 mls/hr IV.SIG Q12H VALERIE Rx#:[id number] Oral 1000 / 1000 240 / 240 Output: Urine 750 / 750 750 / 750 Chest Tube Drainage 50 / 50 #1 Right Anterior 50 / 50 #2 Right Anterior 0 / 0 Other: Date of Last Bowel Movement 05/29/18 05/29/18 # Bowel Movements 2 - Constitutional mild distress - Routine HEENT Exam Head: Present: normocephalic Eye: Present: EOMI, PERRL, normal accommodation, conjunctivae pink ENT: Present: mucous membranes moist - Routine Neck Exam Present: supple, full ROM, trachea midline - Routine Respiratory Exam Present: CTA bilaterally Comments: SubQ emphysema - Routine Cardiovascular Exam Present: RRR, S1, S2 - Routine Abdominal Exam Present: soft, normoactive bowel sounds - Routine Extremities Exam Present: full ROM - Routine Skin Exam Present: intact - Routine Neurological Exam Present: alert, oriented X3, CN II-XII intact - Routine Psychiatric Exam Present: normal affect Assessment and Plan - Plan 1)Resp Insuff 2)Right sided PTX s/p CT placement 3)Sub Q emphysema 4)Chest wall contusion 5)COPD- On 4L home oxygen 6)Multiple rib fractures 7)HTN Plan Continue with oxygen keep sats >92% Bronchodilators(DuoNeb, Symbicort), IS Place on Solumederol 40mg IV Q8 s/p right CT placement x [address] Cash, check CXR today CXR yesterday showed no evidence of PTX Continue abx (Cefepime)monitor for signs of infections ( Fever, WBC) Continue treatment plan
[2018-05-30] MEDS: Multivitamin/Minerals Therapeutic Tablet PO SCH (10:05)
[2018-05-30] MEDS: Senna/Docusate Sodium 8.6/50 MG Tablet PO SCH ×2 (10:05→21:25)
[2018-05-30] MEDS: amLODIPine 10 MG Tablet PO SCH (10:06)
[2018-05-30] MEDS: MethylPREDNISolone Sod Succinate Inj 40 MG/ML Vial IV.PUSH SCH ×2 (10:06→17:36)
[2018-05-30] MEDS: Metoprolol Tartrate 25 MG Tablet PO SCH ×2 (10:06→21:26)
[2018-05-30] MEDS: Budesonide-Formoterol 160/4.5 MCG 6 GM Inhaler INH SCH ×2 (10:07→21:26)
--- NOTE | 2018-05-30 10:19 | XR ---
EXAM DATE: 05/30/2018 10:02 AM EDT AGE/SEX: 83 years / Male INDICATIONS: Short of breath CLINICAL DATA: This is the patient's subsequent encounter. Patient reports that signs and symptoms h ave been present for 1 week and indicates a pain score of 0/10. MEDICAL/SURGICAL HISTORY: . Chronic obstructive pulmonary disease. Emphysema. Myocardial infarc tion None. COMPARISON: [facility] – [place], CHEST 1V SINGLE AP, 05/29/2018. . FINDINGS: There are 2 right-sided apical chest tubes in stable position. Redemonstration of extensive subcutane ous emphysema, not significantly changed. No significant pneumothorax. Cardiomediastinal contours are stable. Remainder of the exam is unchanged. CONCLUSION: 1. No significant interval change. 2. Stable right-sided apical chest tubes without significant pneumothorax. 3. Persistent diffuse subcutaneous emphysema. Electronically signed by: Caleb Montemayor MD 05/30/2018 10:17 AM EDT
[2018-05-30] MEDS: Insulin NovoLOG Aspart Correctional Sugar Inj SQ SCH ×4 (10:49→21:34)
--- NOTE | 2018-05-30 11:32 | P.PNCV ---
- Note CVT: Post Op Day #: 2 Subjective/Hospital Course: worsening sub q emphysema despite pig tail cath chest tube plan for large bore chest tube in OR in am discussed with pt and family 05/29/18 Subcutaneous emphysema subjectively improved as he can now open one eye. Good appetite 05/30/18 Continued improvement in subcutaneous emphysema. Needs PT/OT - deconditioned Objective: Vital Signs - 24 hr 05/29/18 12:00 05/29/18 16:00 05/29/18 17:18 Temperature 98 F 97.8 F Pulse Rate 64 66 Respiratory Rate Blood Pressure 145/80 H 145/56 H Pulse Oximetry 95 95 95 05/29/18 20:00 05/29/18 21:41 05/29/18 23:58 Temperature 98.3 F 97.8 F Pulse Rate 62 64 Respiratory Rate Blood Pressure 183/87 H 157/73 H Pulse Oximetry 97 98 100 05/30/18 00:00 05/30/18 01:46 05/30/18 04:00 Temperature 97.8 F Pulse Rate 64 57 L 64 Respiratory Rate 20 Blood Pressure 181/77 H Pulse Oximetry 100 100 05/30/18 06:14 05/30/18 09:24 Temperature Pulse Rate 56 L 72 Respiratory Rate 20 20 Blood Pressure Pulse Oximetry Labs: Laboratory Results - last 12 hr 05/30/18 08:30 POC Glucose 142 H Result Diagrams: 05/28/18 05:24 05/28/18 05:24 Imaging: Head CT 05/20/18 19:09 CONCLUSION: 1. Stable chronic changes with symmetric cortical atrophy and moderately severe periventricular and deep white matter tracts small vessel ischemic demyelination. 2. Nothing acute. Pulmonary Perfusion Imaging 05/20/18 19:56 CONCLUSION: 1. Mild central trapping on the ventilatory images could represent some degree of COPD. 2. Otherwise, low probability scan for pulmonary embolus. Chest Tube Insertion 05/25/18 00:00 CONCLUSION: Uncomplicated fluoroscopic guided pigtail chest tube placement as above for pneumothorax. Chest CT 05/27/18 00:00 CONCLUSION: 1. Chest drainage catheter at the right apex. No apical pneumothorax seen. 2. Small right basilar pneumothorax, smaller than on prior. 3. New tiny left pneumothorax in the costophrenic angle. 4. Stable severity to the extensive subcutaneous emphysema and pneumomediastinum. Chest X-Ray 05/30/18 09:32 CONCLUSION: 1. No significant interval change. 2. Stable right-sided apical chest tubes without significant pneumothorax. 3. Persistent diffuse subcutaneous emphysema. Pulmonary: CTA Incision: dry and intact CT: 50ml, no air leak - Plan (1) COPD (chronic obstructive pulmonary disease) (2) Pneumothorax (3) Subcutaneous emphysema Plan: for large bore chest tube tomorrow Continue chest tubes to suction PT/OT Discharge planning (1) COPD (chronic obstructive pulmonary disease) Qualifiers: COPD type: COPD with acute exacerbation Qualified Code(s): J44.1 - Chronic obstructive pulmonary disease with (acute) exacerbation (2) Pneumothorax Qualifiers: Pneumothorax type: traumatic Encounter type: sequela Qualified Code(s): S27.0XXS - Traumatic pneumothorax, sequela (3) Subcutaneous emphysema Qualifiers: Encounter type: initial encounter Qualified Code(s): T79.7XXA - Traumatic subcutaneous emphysema, initial encounter
--- NOTE | 2018-05-30 12:17 | P.PN ---
Subjective Interval history: Follow-up pneumothorax/emphysema May 29, 2018-patient seen and examined, no acute event overnight, still short of breath. Dr. Crane at bedside May 30, 2018-patient seen and examined, still complaining of facial puffiness with some mild shortness of breath. Physical Exam Vital signs: Vital Signs 05/29/18 16:00 05/29/18 17:18 05/29/18 20:00 Temperature 97.8 F 98.3 F Pulse Rate 66 62 Respiratory Rate Blood Pressure 145/56 H 183/87 H Pulse Oximetry 95 95 97 05/29/18 21:41 05/29/18 23:58 05/30/18 00:00 Temperature 97.8 F Pulse Rate 64 64 Respiratory Rate Blood Pressure 157/73 H Pulse Oximetry 98 100 100 05/30/18 01:46 05/30/18 04:00 05/30/18 06:14 Temperature 97.8 F Pulse Rate 57 L 64 56 L Respiratory Rate 20 20 Blood Pressure 181/77 H Pulse Oximetry 100 05/30/18 09:24 Temperature Pulse Rate 72 Respiratory Rate 20 Blood Pressure Pulse Oximetry Intake & Output 05/29/18 05/30/18 05/30/18 18:59 06:59 18:59 Intake Total 1100 / 1100 340 / 340 Output Total 750 / 750 800 / 800 Balance 350 / 350 -460 / -460 Weight 89 kg Intake: IV 100 / 100 100 / 100 Maxipime Inj 1,000 MG In NS Inj 100 / 100 100 / 100 100 ML @ 200 mls/hr IV.SIG Q12H VALERIE Rx#:[id number] Oral 1000 / 1000 240 / 240 Output: Urine 750 / 750 750 / 750 Chest Tube Drainage 50 / 50 #1 Right Anterior 50 / 50 #2 Right Anterior 0 / 0 Other: Date of Last Bowel Movement 05/29/18 05/29/18 # Bowel Movements 2 Narrative: GENERAL 83 year old elderly male, with severe periorbital edema.and SubQ air over neck and Face . SKIN: Warm and dry. HEAD: Normocephalic. EYES: No scleral icterus. . Has bilateral puffy and swollen eyelids NECK: Supple, trachea midline. No JVD or lymphadenopathy. CARDIOVASCULAR: Regular rate and rhythm without murmurs, gallops, or rubs. RESPIRATORY: Breath sounds decreased bilaterally. Right anterior chest wall with pigtail CT in. GASTROINTESTINAL: Abdomen soft, non-tender, nondistended. MUSCULOSKELETAL: No cyanosis, trace edema. BACK: Nontender without obvious deformity. No CVA tenderness. NEURO: awakes to voice, oriented x 3, follows commands. no gross deficit. Results - Labs CBC & Chem 7: 05/28/18 05:24 05/28/18 05:24 Laboratory Results - last 24 hr 05/29/18 05/29/18 05/29/18 11:57 16:57 20:52 POC Glucose 288 H 224 H 112 H 05/30/18 08:30 POC Glucose 142 H - Imaging Impressions Chest X-Ray 05/30/18 09:32 CONCLUSION: 1. No significant interval change. 2. Stable right-sided apical chest tubes without significant pneumothorax. 3. Persistent diffuse subcutaneous emphysema. Assessment and Plan - Assessment (1) Syncope Code(s): R55 - Syncope and collapse Status: Acute (2) PNA (pneumonia) Code(s): J18.9 - Pneumonia, unspecified organism Status: Acute (3) COPD (chronic obstructive pulmonary disease) Code(s): J44.9 - Chronic obstructive pulmonary disease, unspecified Status: Acute (4) Pneumothorax Code(s): J93.9 - Pneumothorax, unspecified Status: Acute (5) Subcutaneous emphysema Code(s): T79.7XXA - Traumatic subcutaneous emphysema, initial encounter Status : Acute - Plan 83-year-old man with Community-acquired pneumonia; failed outpatient therapy -continue cefepime. -continue with DuoNeb as needed, maintain oxygen saturation above 92% Right chest wall contusion secondary to syncope, found with right rib fractures 9 through 11, traumatic right pneumothorax and subq emphysema -appreciate pulmonary input -IR consult for CT placement. Status post chest tube placement 05/25/2018 -continue with oxygen. -Remains with significant subcutaneous emphysema. Chest x-ray May 30, 2018 with persistent diffuse subcutaneous emphysema, but no pneumothorax -Appreciate input from cardiothoracic surgery. Chest tube management per CTS - Continue with Solu-Medrol, DuoNeb Syncope: acute syncopal event CT Head w/ no acute findings, images reviewed. Initial trop negative -serial cardiac enzymes negative -PT for eval/tx. -Follows w/ Dr. Foss, will consult as needed. -2D echo with EF 50-55%. -V/Q negative for PE COPD: Chronic Respiratory Failure w/ Acute Exacerbation. -DuoNeb scheduled and as needed, -Solu-Medrol 40mg Q8H -DuoNeb, Symbicort. -Monitor O2. Hypertension -On [id number] daily -Clonidine PRN -Lopressor 12.5 mg p.o. twice daily. Discharge Planning: Likely discharge home next 48 hours (3) COPD (chronic obstructive pulmonary disease) Qualifiers: COPD type: COPD with acute exacerbation Qualified Code(s): J44.1 - Chronic obstructive pulmonary disease with (acute) exacerbation (4) Pneumothorax Qualifiers: Pneumothorax type: traumatic Encounter type: sequela Qualified Code(s): S27.0XXS - Traumatic pneumothorax, sequela (5) Subcutaneous emphysema Qualifiers: Encounter type: initial encounter Qualified Code(s): T79.7XXA - Traumatic subcutaneous emphysema, initial encounter
[2018-05-31] MEDS: MethylPREDNISolone Sod Succinate Inj 40 MG/ML Vial IV.PUSH SCH ×2 (02:32→10:10)
[2018-05-31 05:59] LABS: Baso % (Auto) 0.1 % (0.0-2.0); Hematocrit 42.1 % (39.0-51.0); Hemoglobin 13.9 gm/dL (13.0-17.0); Lymph # (Auto) 1.2 th/mm3 (1.0-4.8); Lymph % (Auto) 11.8 % (9.0-44.0); Mean Corpuscular HGB Conc 33.1 % (32.0-36.0); Mean Corpuscular Hemoglobin 29.2 pg (27.0-34.0); Mono # (Auto) 0.2 th/mm3 (0.0-0.9); Mono % (Auto) 2.3 % (0.0-8.0); Neut # (Auto) 8.8 th/mm3 (1.8-7.7); Neut % (Auto) 85.8 % (16.0-70.0); Platelet Count 181 th/mm3 (150-450); Red Blood Count 4.78 mil/mm3 (4.50-5.90); Red Cell Distribution Width 14.3 % (11.6-17.2); White Blood Count 10.3 th/mm3 (4.0-11.0)
[2018-05-31 06:38] LABS: Alanine Aminotransferase 42 U/L (12-78); Albumin 2.7 g/dL (3.4-5.0); Anion Gap 10 meq/L (5-15); Aspartate Aminotransferase 10 U/L (15-37); Blood Urea Nitrogen 33 mg/dL (7-18); Calcium 8.7 mg/dL (8.5-10.1); Carbon Dioxide 26.2 meq/L (21.0-32.0); Chloride 99 meq/L (98-107); Glomerular Filtration Rate 66 mL/min (>89); Glucose,Random 196 mg/dL (74-106); Potassium 4.6 meq/L (3.5-5.1); Sodium 135 meq/L (136-145)
[2018-05-31 06:40] LABS: Alkaline Phosphatase 68 U/L (45-117)
[2018-05-31] MEDS: Insulin NovoLOG Aspart Correctional Sugar Inj SQ SCH ×4 (08:11→22:26)
[2018-05-31] MEDS: Metoprolol Tartrate 25 MG Tablet PO SCH ×3 (08:12→22:19)
[2018-05-31] MEDS: amLODIPine 10 MG Tablet PO SCH (08:12)
[2018-05-31] MEDS: Multivitamin/Minerals Therapeutic Tablet PO SCH (08:13)
[2018-05-31] MEDS: Senna/Docusate Sodium 8.6/50 MG Tablet PO SCH ×2 (09:58→22:20)
[2018-05-31] MEDS: Budesonide-Formoterol 160/4.5 MCG 6 GM Inhaler INH SCH ×2 (10:10→22:18)
--- NOTE | 2018-05-31 11:11 | P.PN ---
Subjective Interval history: Follow-up pneumothorax/emphysema May 29, 2018-patient seen and examined, no acute event overnight, still short of breath. Dr. Crane at bedside May 30, 2018-patient seen and examined, still complaining of facial puffiness with some mild shortness of breath. May 31, 2018-patient seen and examined, reports some improvement of facial puffiness and denies any significant shortness of breath. BP labile. Physical Exam Vital signs: Vital Signs 05/30/18 12:00 05/30/18 13:00 05/30/18 15:57 Temperature 97.8 F Pulse Rate 71 80 Respiratory Rate 16 20 Blood Pressure 133/63 Pulse Oximetry 94 L 05/30/18 16:00 05/30/18 17:00 05/30/18 18:59 Temperature 98.5 F Pulse Rate 81 80 Respiratory Rate 16 Blood Pressure 132/65 Pulse Oximetry 94 L 05/30/18 19:59 05/30/18 20:00 05/30/18 20:37 Temperature 98.2 F Pulse Rate 84 94 H 87 Respiratory Rate 18 18 Blood Pressure 153/60 H Pulse Oximetry 99 96 05/30/18 21:00 05/30/18 22:00 05/30/18 23:00 Temperature Pulse Rate 82 74 72 Respiratory Rate Blood Pressure Pulse Oximetry 05/31/18 00:00 05/31/18 01:00 05/31/18 02:00 Temperature 98.1 F Pulse Rate 70 75 68 Respiratory Rate 16 18 Blood Pressure 133/61 Pulse Oximetry 99 05/31/18 03:00 05/31/18 03:54 05/31/18 04:00 Temperature 98 F Pulse Rate 64 71 71 Respiratory Rate 18 18 Blood Pressure 162/77 H Pulse Oximetry 97 05/31/18 05:00 05/31/18 06:00 05/31/18 07:00 Temperature Pulse Rate 80 101 H 69 Respiratory Rate Blood Pressure Pulse Oximetry 05/31/18 07:34 05/31/18 10:37 Temperature 97.4 F L 98.4 F Pulse Rate 70 72 Respiratory Rate 18 18 Blood Pressure 173/74 H 148/72 H Pulse Oximetry 98 98 Intake & Output 05/30/18 05/31/18 05/31/18 18:59 06:59 18:59 Intake Total 1200 / 1200 750 / 750 Output Total 900 / 900 741 / 741 Balance 300 / 300 9 / Weight 86.5 kg Intake: IV 100 / 100 100 / 100 Maxipime Inj 1,000 MG In NS Inj 100 / 100 100 ML @ 200 mls/hr IV.SIG Q12H VALERIE Rx#:[id number] Oral 1100 / 1100 650 / 650 Output: Urine 900 / 900 700 / 700 Estimated Blood Loss 5 / 5 Chest Tube Drainage 0 / 0 36 / 36 #1 Right Anterior 0 / 0 30 / 30 #2 Right Anterior 0 / 0 6 / 6 Other: # Voids 4 Date of Last Bowel Movement 05/29/18 05/28/18 # Incontinent Bowel Movements 0 0 Narrative: GENERAL 83 year old elderly male, with improving periorbital edema and SubQ air over neck and Face . SKIN: Warm and dry. HEAD: Normocephalic. EYES: No scleral icterus. . improving bilateral puffy and swollen eyelids NECK: Supple, trachea midline. No JVD or lymphadenopathy. CARDIOVASCULAR: Regular rate and rhythm without murmurs, gallops, or rubs. RESPIRATORY: Breath sounds decreased bilaterally. Right anterior chest wall with pigtail CT in. GASTROINTESTINAL: Abdomen soft, non-tender, nondistended. MUSCULOSKELETAL: No cyanosis, trace edema. BACK: Nontender without obvious deformity. No CVA tenderness. NEURO: awakes to voice, oriented x 3, follows commands. no gross deficit. Results - Labs CBC & Chem 7: 05/31/18 04:47 05/31/18 04:47 Laboratory Results - last 24 hr 05/30/18 05/30/18 05/30/18 13:15 16:26 21:29 WBC RBC Hgb Hct MCV MCH MCHC RDW Plt Count MPV Neut % (Auto) Lymph % (Auto) [place] % (Auto) Eos % (Auto) Baso % (Auto) Neut # (Auto) Lymph # (Auto) [place] # (Auto) Eos # (Auto) Baso # (Auto) WBC Differential Differential Comment Sodium Potassium Chloride Carbon Dioxide Anion Gap BUN Creatinine Estimated GFR POC Glucose 323 H 305 H 405 H Random Glucose Calcium Total Bilirubin AST ALT Alkaline Phosphatase Total Protein Albumin 05/30/18 05/31/18 05/31/18 21:32 04:47 04:47 WBC 10.3 RBC 4.78 Hgb 13.9 Hct 42.1 MCV 88.0 MCH 29.2 MCHC 33.1 RDW 14.3 Plt Count 181 MPV 7.0 Neut % (Auto) 85.8 H Lymph % (Auto) 11.8 [place] % (Auto) 2.3 Eos % (Auto) 0.0 Baso % (Auto) 0.1 Neut # (Auto) 8.8 H Lymph # (Auto) 1.2 [place] # (Auto) 0.2 Eos # (Auto) 0.0 Baso # (Auto) 0.0 WBC Differential . Differential Comment Auto diff final Sodium 135 L Potassium 4.6 Chloride 99 Carbon Dioxide 26.2 Anion Gap 10 BUN 33 H Creatinine 1.07 Estimated GFR 66 L POC Glucose 325 H Random Glucose 196 H Calcium 8.7 Total Bilirubin 0.4 AST 10 L ALT 42 Alkaline Phosphatase 68 Total Protein 6.0 L Albumin 2.7 L 05/31/18 08:06 WBC RBC Hgb Hct MCV MCH MCHC RDW Plt Count MPV Neut % (Auto) Lymph % (Auto) [place] % (Auto) Eos % (Auto) Baso % (Auto) Neut # (Auto) Lymph # (Auto) [place] # (Auto) Eos # (Auto) Baso # (Auto) WBC Differential Differential Comment Sodium Potassium Chloride Carbon Dioxide Anion Gap BUN Creatinine Estimated GFR POC Glucose 196 H Random Glucose Calcium Total Bilirubin AST ALT Alkaline Phosphatase Total Protein Albumin Assessment and Plan - Assessment (1) Syncope Code(s): R55 - Syncope and collapse Status: Acute (2) PNA (pneumonia) Code(s): J18.9 - Pneumonia, unspecified organism Status: Acute (3) COPD (chronic obstructive pulmonary disease) Code(s): J44.9 - Chronic obstructive pulmonary disease, unspecified Status: Acute (4) Pneumothorax Code(s): J93.9 - Pneumothorax, unspecified Status: Acute (5) Subcutaneous emphysema Code(s): T79.7XXA - Traumatic subcutaneous emphysema, initial encounter Status : Acute - Plan 83-year-old man with Community-acquired pneumonia; failed outpatient therapy -d/c cefepime. -continue with DuoNeb as needed Right chest wall contusion secondary to syncope, found with right rib fractures 9 through 11, traumatic right pneumothorax and subq emphysema -appreciate pulmonary input -IR consult for CT placement. Status post chest tube placement 05/25/2018 -continue with oxygen. -Remains with significant subcutaneous emphysema. Chest x-ray May 30, 2018 with persistent diffuse subcutaneous emphysema, but no pneumothorax -Appreciate input from cardiothoracic surgery. Chest tube management per CTS - Continue with Solu-Medrol, DuoNeb Syncope: acute syncopal event CT Head w/ no acute findings, images reviewed. Initial trop negative -serial cardiac enzymes negative -PT for eval/tx. -Follows w/ Dr. Foss, will consult as needed. -2D echo with EF 50-55%. -V/Q negative for PE COPD: Chronic Respiratory Failure w/ Acute Exacerbation. -DuoNeb scheduled and as needed, -Solu-Medrol 40mg Q8H -DuoNeb, Symbicort. -Monitor O2. Hypertension -On [id number] daily -Clonidine PRN -Lopressor 12.5 mg p.o. twice daily. (3) COPD (chronic obstructive pulmonary disease) Qualifiers: COPD type: COPD with acute exacerbation Qualified Code(s): J44.1 - Chronic obstructive pulmonary disease with (acute) exacerbation (4) Pneumothorax Qualifiers: Pneumothorax type: traumatic Encounter type: sequela Qualified Code(s): S27.0XXS - Traumatic pneumothorax, sequela (5) Subcutaneous emphysema Qualifiers: Encounter type: initial encounter Qualified Code(s): T79.7XXA - Traumatic subcutaneous emphysema, initial encounter
--- NOTE | 2018-05-31 12:33 | P.PN ---
Subjective Interval history: Has less facial SubQ emphysema. Opens eyes. On O2 2 L. Chest tubes in and no air leak. Physical Exam Vital signs: Vital Signs 05/30/18 13:00 05/30/18 15:57 05/30/18 16:00 Temperature 98.5 F Pulse Rate 80 81 Respiratory Rate 20 16 Blood Pressure 132/65 Pulse Oximetry 94 L 05/30/18 17:00 05/30/18 18:59 05/30/18 19:59 Temperature Pulse Rate 80 84 Respiratory Rate Blood Pressure Pulse Oximetry 94 L 05/30/18 20:00 05/30/18 20:37 05/30/18 21:00 Temperature 98.2 F Pulse Rate 94 H 87 82 Respiratory Rate 18 18 Blood Pressure 153/60 H Pulse Oximetry 99 96 05/30/18 22:00 05/30/18 23:00 05/31/18 00:00 Temperature 98.1 F Pulse Rate 74 72 70 Respiratory Rate 16 Blood Pressure 133/61 Pulse Oximetry 99 05/31/18 01:00 05/31/18 02:00 05/31/18 03:00 Temperature Pulse Rate 75 68 64 Respiratory Rate 18 Blood Pressure Pulse Oximetry 05/31/18 03:54 05/31/18 04:00 05/31/18 05:00 Temperature 98 F Pulse Rate 71 71 80 Respiratory Rate 18 18 Blood Pressure 162/77 H Pulse Oximetry 97 05/31/18 06:00 05/31/18 07:00 05/31/18 07:34 Temperature 97.4 F L Pulse Rate 101 H 69 70 Respiratory Rate 18 Blood Pressure 173/74 H Pulse Oximetry 98 05/31/18 08:00 05/31/18 09:00 05/31/18 10:00 Temperature Pulse Rate 68 78 72 Respiratory Rate Blood Pressure Pulse Oximetry 05/31/18 10:37 05/31/18 11:00 Temperature 98.4 F Pulse Rate 72 Respiratory Rate 18 Blood Pressure 148/72 H Pulse Oximetry 98 98 Intake & Output 05/30/18 05/31/18 05/31/18 18:59 06:59 18:59 Intake Total 1200 / 1200 750 / 750 Output Total 900 / 900 741 / 741 Balance 300 / 300 9 / 9 Weight 86.5 kg Intake: IV 100 / 100 100 / 100 Maxipime Inj 1,000 MG In NS Inj 100 / 100 100 ML @ 200 mls/hr IV.SIG Q12H VALERIE Rx#:[id number] Oral 1100 / 1100 650 / 650 Output: Urine 900 / 900 700 / 700 Estimated Blood Loss 5 / 5 Chest Tube Drainage 0 / 0 36 / 36 #1 Right Anterior 0 / 0 30 / 30 #2 Right Anterior 0 / 0 6 / 6 Other: # Voids 4 Date of Last Bowel Movement 05/29/18 05/28/18 # Incontinent Bowel Movements 0 0 Narrative: GENERAL This elderly W male, with improving periorbital edema and SubQ air over neck and Face . SKIN: Warm and dry. HEAD: Normocephalic. EYES: No scleral icterus. . improving bilateral puffy and swollen eyelids NECK: Supple, trachea midline. No JVD or lymphadenopathy. CARDIOVASCULAR: Regular rate and rhythm without murmurs, gallops, or rubs. RESPIRATORY: Breath sounds decreased bilaterally.Has 2 Chest tubes in Right chest .Crepitus of chest wall. GASTROINTESTINAL: Abdomen soft, non-tender, nondistended. MUSCULOSKELETAL: No cyanosis, trace edema. BACK: Nontender without obvious deformity. No CVA tenderness. NEURO: awake, oriented x 3, follows commands. no gross deficit. Results - Labs CBC & Chem 7: 05/31/18 04:47 05/31/18 04:47 Laboratory Results - last 24 hr 05/30/18 05/30/18 05/30/18 13:15 16:26 21:29 WBC RBC Hgb Hct MCV MCH MCHC RDW Plt Count MPV Neut % (Auto) Lymph % (Auto) [place] % (Auto) Eos % (Auto) Baso % (Auto) Neut # (Auto) Lymph # (Auto) [place] # (Auto) Eos # (Auto) Baso # (Auto) WBC Differential Differential Comment Sodium Potassium Chloride Carbon Dioxide Anion Gap BUN Creatinine Estimated GFR POC Glucose 323 H 305 H 405 H Random Glucose Calcium Total Bilirubin AST ALT Alkaline Phosphatase Total Protein Albumin 05/30/18 05/31/18 05/31/18 21:32 04:47 04:47 WBC 10.3 RBC 4.78 Hgb 13.9 Hct 42.1 MCV 88.0 MCH 29.2 MCHC 33.1 RDW 14.3 Plt Count 181 MPV 7.0 Neut % (Auto) 85.8 H Lymph % (Auto) 11.8 [place] % (Auto) 2.3 Eos % (Auto) 0.0 Baso % (Auto) 0.1 Neut # (Auto) 8.8 H Lymph # (Auto) 1.2 [place] # (Auto) 0.2 Eos # (Auto) 0.0 Baso # (Auto) 0.0 WBC Differential . Differential Comment Auto diff final Sodium 135 L Potassium 4.6 Chloride 99 Carbon Dioxide 26.2 Anion Gap 10 BUN 33 H Creatinine 1.07 Estimated GFR 66 L POC Glucose 325 H Random Glucose 196 H Calcium 8.7 Total Bilirubin 0.4 AST 10 L ALT 42 Alkaline Phosphatase 68 Total Protein 6.0 L Albumin 2.7 L 05/31/18 05/31/18 08:06 12:08 WBC RBC Hgb Hct MCV MCH MCHC RDW Plt Count MPV Neut % (Auto) Lymph % (Auto) [place] % (Auto) Eos % (Auto) Baso % (Auto) Neut # (Auto) Lymph # (Auto) [place] # (Auto) Eos # (Auto) Baso # (Auto) WBC Differential Differential Comment Sodium Potassium Chloride Carbon Dioxide Anion Gap BUN Creatinine Estimated GFR POC Glucose 196 H 384 H Random Glucose Calcium Total Bilirubin AST ALT Alkaline Phosphatase Total Protein Albumin Assessment and Plan - Assessment (1) Chest wall contusion Code(s): S20.219A - Contusion of unspecified front wall of thorax, initial encounter Status: Acute (2) Contusion, shoulder /upper arm Status: Acute (3) Acute exacerbation of chronic obstructive airways disease Code(s): J44.1 - Chronic obstructive pulmonary disease with (acute) exacerbation Status: Acute (4) Syncope Code(s): R55 - Syncope and collapse Status: Acute (5) Pneumonia Code(s): J18.9 - Pneumonia, unspecified organism Status: Acute (6) COPD (chronic obstructive pulmonary disease) Code(s): J44.9 - Chronic obstructive pulmonary disease, unspecified Status: Acute (7) Pneumothorax Code(s): J93.9 - Pneumothorax, unspecified Status: Acute (8) Subcutaneous emphysema Code(s): T79.7XXA - Traumatic subcutaneous emphysema, initial encounter Status : Acute (9) Ribs, multiple fractures Code(s): S22.49XA - Multiple fractures of ribs, unspecified side, initial encounter for closed fracture Status: Acute (10) Ribs, multiple fractures Code(s): S22.49XA - Multiple fractures of ribs, unspecified side, initial encounter for closed fracture Status: Acute - Plan 1. Cont O2 at 2 L. N/C 2. Cont Duoneb nebs qid. 3. Continue antibiotics . 4. CXR,CBC, BMP in am 5. Symbicort 160/4.5 mcg 2 puffs BID 6. D/C Solumedrol 7. IS at bedside q2h 8. Diet as tolerated 9. Add Prednisone 10 mg BID (6) COPD (chronic obstructive pulmonary disease) Qualifiers: COPD type: COPD with acute exacerbation Qualified Code(s): J44.1 - Chronic obstructive pulmonary disease with (acute) exacerbation (7) Pneumothorax Qualifiers: Pneumothorax type: traumatic Encounter type: sequela Qualified Code(s): S27.0XXS - Traumatic pneumothorax, sequela (8) Subcutaneous emphysema Qualifiers: Encounter type: initial encounter Qualified Code(s): T79.7XXA - Traumatic subcutaneous emphysema, initial encounter
[2018-05-31] MEDS: Acetaminophen 325 MG Tablet PO PRN (13:27)
--- NOTE | 2018-05-31 14:36 | P.PNCV ---
- Note Subjective/Hospital Course: worsening sub q emphysema despite pig tail cath chest tube plan for large bore chest tube in OR in am discussed with pt and family 05/29/18 Subcutaneous emphysema subjectively improved as he can now open one eye. Good appetite 05/30/18 Continued improvement in subcutaneous emphysema. Needs PT/OT - deconditioned 05/31 OOB to chair, chest tube x 2 now to 10cm suction, no air leak subq emphysema improving on nasal cannula Objective: Vital Signs - 24 hr 05/30/18 15:57 05/30/18 16:00 05/30/18 17:00 Temperature 98.5 F Pulse Rate 80 81 Respiratory Rate 20 16 Blood Pressure 132/65 Pulse Oximetry 94 L 05/30/18 18:59 05/30/18 19:59 05/30/18 20:00 Temperature 98.2 F Pulse Rate 80 84 94 H Respiratory Rate 18 Blood Pressure 153/60 H Pulse Oximetry 99 05/30/18 20:37 05/30/18 21:00 05/30/18 22:00 Temperature Pulse Rate 87 82 74 Respiratory Rate 18 Blood Pressure Pulse Oximetry 96 05/30/18 23:00 05/31/18 00:00 05/31/18 01:00 Temperature 98.1 F Pulse Rate 72 70 75 Respiratory Rate 16 18 Blood Pressure 133/61 Pulse Oximetry 99 05/31/18 02:00 05/31/18 03:00 05/31/18 03:54 Temperature Pulse Rate 68 64 71 Respiratory Rate 18 Blood Pressure Pulse Oximetry 05/31/18 04:00 05/31/18 05:00 05/31/18 06:00 Temperature 98 F Pulse Rate 71 80 101 H Respiratory Rate 18 Blood Pressure 162/77 H Pulse Oximetry 97 05/31/18 07:00 05/31/18 07:34 05/31/18 08:00 Temperature 97.4 F L Pulse Rate 69 70 68 Respiratory Rate 18 Blood Pressure 173/74 H Pulse Oximetry 98 05/31/18 09:00 05/31/18 10:00 05/31/18 10:37 Temperature 98.4 F Pulse Rate 78 72 72 Respiratory Rate 18 Blood Pressure 148/72 H Pulse Oximetry 98 05/31/18 11:00 05/31/18 12:00 05/31/18 13:00 Temperature Pulse Rate 69 70 82 Respiratory Rate Blood Pressure Pulse Oximetry 98 GENERAL: A&O x 3 SKIN: Warm and dry. dressing to right upper chest to chest tube site, right lateral chest wall HEAD: Normocephalic. EYES: No scleral icterus. No injection or drainage. NECK: Supple, trachea midline. No JVD or lymphadenopathy. CARDIOVASCULAR: Regular rate and rhythm without murmurs, gallops, or rubs. RESPIRATORY: Breath sounds equal bilaterally. No accessory muscle use. insp exp wheezing / sub q emphysema improving GASTROINTESTINAL: Abdomen soft, non-tender, nondistended. MUSCULOSKELETAL: No cyanosis, or edema. BACK: Nontender without obvious deformity. No CVA tenderness. Labs: Laboratory Results - last 12 hr 05/31/18 05/31/18 05/31/18 04:47 04:47 08:06 WBC 10.3 RBC 4.78 Hgb 13.9 Hct 42.1 MCV 88.0 MCH 29.2 MCHC 33.1 RDW 14.3 Plt Count 181 MPV 7.0 Neut % (Auto) 85.8 H Lymph % (Auto) 11.8 [place] % (Auto) 2.3 Eos % (Auto) 0.0 Baso % (Auto) 0.1 Neut # (Auto) 8.8 H Lymph # (Auto) 1.2 [place] # (Auto) 0.2 Eos # (Auto) 0.0 Baso # (Auto) 0.0 WBC Differential . Differential Comment Auto diff final Sodium 135 L Potassium 4.6 Chloride 99 Carbon Dioxide 26.2 Anion Gap 10 BUN 33 H Creatinine 1.07 Estimated GFR 66 L POC Glucose 196 H Random Glucose 196 H Calcium 8.7 Total Bilirubin 0.4 AST 10 L ALT 42 Alkaline Phosphatase 68 Total Protein 6.0 L Albumin 2.7 L 05/31/18 12:08 WBC RBC Hgb Hct MCV MCH MCHC RDW Plt Count MPV Neut % (Auto) Lymph % (Auto) [place] % (Auto) Eos % (Auto) Baso % (Auto) Neut # (Auto) Lymph # (Auto) [place] # (Auto) Eos # (Auto) Baso # (Auto) WBC Differential Differential Comment Sodium Potassium Chloride Carbon Dioxide Anion Gap BUN Creatinine Estimated GFR POC Glucose 384 H Random Glucose Calcium Total Bilirubin AST ALT Alkaline Phosphatase Total Protein Albumin Result Diagrams: 05/31/18 04:47 05/31/18 04:47 - Plan (1) COPD (chronic obstructive pulmonary disease) Plan: nebs steroids (2) Pneumothorax Plan: chest tubes to [address] on water seal in am then eval to remove pig tail cath first / then large bore (3) Subcutaneous emphysema Plan: for large bore chest tube tomorrow (1) COPD (chronic obstructive pulmonary disease) Qualifiers: COPD type: COPD with acute exacerbation Qualified Code(s): J44.1 - Chronic obstructive pulmonary disease with (acute) exacerbation (2) Pneumothorax Qualifiers: Pneumothorax type: traumatic Encounter type: sequela Qualified Code(s): S27.0XXS - Traumatic pneumothorax, sequela (3) Subcutaneous emphysema Qualifiers: Encounter type: initial encounter Qualified Code(s): T79.7XXA - Traumatic subcutaneous emphysema, initial encounter
[2018-05-31] MEDS: predniSONE 10 MG Tablet PO SCH (22:19)
[2018-06-01] MEDS: Insulin NovoLOG Aspart Correctional Sugar Inj SQ SCH ×4 (09:15→21:00)
[2018-06-01] MEDS: predniSONE 10 MG Tablet PO SCH ×2 (09:40→21:21)
[2018-06-01] MEDS: Metoprolol Tartrate 25 MG Tablet PO SCH ×2 (09:41→21:21)
[2018-06-01] MEDS: amLODIPine 10 MG Tablet PO SCH (09:41)
[2018-06-01] MEDS: Multivitamin/Minerals Therapeutic Tablet PO SCH (09:41)
[2018-06-01] MEDS: Budesonide-Formoterol 160/4.5 MCG 6 GM Inhaler INH SCH ×2 (09:41→21:22)
[2018-06-01] MEDS: Senna/Docusate Sodium 8.6/50 MG Tablet PO SCH ×2 (09:41→21:21)
--- NOTE | 2018-06-01 10:31 | P.PNCV ---
- Note Subjective/Hospital Course: worsening sub q emphysema despite pig tail cath chest tube plan for large bore chest tube in OR in am discussed with pt and family 05/29/18 Subcutaneous emphysema subjectively improved as he can now open one eye. Good appetite 05/30/18 Continued improvement in subcutaneous emphysema. Needs PT/OT - deconditioned 05/31 OOB to chair, chest tube x 2 now to 10cm suction, no air leak subq emphysema improving on nasal cannula 06/01 no air leak noted in chest tube x [address] pig tail cath to water seal leave right lateral chest tube to 10cm suction, still has significant subq emphysema / however improving slowly now can open left eye, right eye still closed ( pt has macular degeneration right eye ) eval for removal of pig tail cath in am Objective: Vital Signs - 24 hr 05/31/18 10:37 05/31/18 11:00 05/31/18 12:00 Temperature 98.4 F Pulse Rate 72 69 70 Respiratory Rate 18 Blood Pressure 148/72 H Pulse Oximetry 98 98 05/31/18 13:00 05/31/18 15:00 05/31/18 15:19 Temperature 97.4 F L Pulse Rate 82 69 63 Respiratory Rate 16 Blood Pressure 128/60 Pulse Oximetry 96 05/31/18 15:36 05/31/18 16:00 05/31/18 17:00 Temperature Pulse Rate 63 68 84 Respiratory Rate 16 Blood Pressure Pulse Oximetry 96 05/31/18 18:00 05/31/18 19:00 05/31/18 19:53 Temperature 98.3 F Pulse Rate 78 77 78 Respiratory Rate 20 18 Blood Pressure 123/58 L Pulse Oximetry 95 05/31/18 20:00 05/31/18 21:00 05/31/18 22:00 Temperature Pulse Rate 74 72 68 Respiratory Rate Blood Pressure Pulse Oximetry 05/31/18 23:00 05/31/18 23:16 06/01/18 00:00 Temperature 98.3 F Pulse Rate 77 59 L 60 Respiratory Rate 20 20 Blood Pressure 123/58 L Pulse Oximetry 95 98 06/01/18 01:00 06/01/18 02:00 06/01/18 03:00 Temperature 98.1 F Pulse Rate 60 58 L 58 L Respiratory Rate 20 Blood Pressure 123/60 Pulse Oximetry 97 06/01/18 04:00 06/01/18 05:00 06/01/18 06:00 Temperature Pulse Rate 56 L 59 L 60 Respiratory Rate Blood Pressure Pulse Oximetry 06/01/18 07:00 06/01/18 08:00 06/01/18 08:02 Temperature 98.1 F Pulse Rate 62 58 L 58 L Respiratory Rate 18 Blood Pressure 120/68 Pulse Oximetry 98 98 06/01/18 09:00 Temperature Pulse Rate 70 Respiratory Rate Blood Pressure Pulse Oximetry GENERAL: A&O x 3 SKIN: Warm and dry. pig tail cath right upper chest wall / no air leak right lateral chest tube no air leak / general subq emphysema slight improvement face arms anterior and posterior chest HEAD: Normocephalic. EYES: No scleral icterus. No injection or drainage. NECK: Supple, trachea midline. No JVD or lymphadenopathy. CARDIOVASCULAR: Regular rate and rhythm without murmurs, gallops, or rubs. RESPIRATORY: Breath sounds equal bilaterally. No accessory muscle use. GASTROINTESTINAL: Abdomen soft, non-tender, nondistended. MUSCULOSKELETAL: No cyanosis, or edema. BACK: Nontender without obvious deformity. No CVA tenderness. Result Diagrams: 05/31/18 04:47 05/31/18 04:47 Telemetry: NSR - Plan (1) COPD (chronic obstructive pulmonary disease) Plan: nebs steroids (2) Pneumothorax Plan: chest tubes to 10 cm suction right anterior chest tube to water seal then eval to remove pig tail cath first / then large bore (3) Subcutaneous emphysema Plan: for large bore chest tube tomorrow (1) COPD (chronic obstructive pulmonary disease) Qualifiers: COPD type: COPD with acute exacerbation Qualified Code(s): J44.1 - Chronic obstructive pulmonary disease with (acute) exacerbation (2) Pneumothorax Qualifiers: Pneumothorax type: traumatic Encounter type: sequela Qualified Code(s): S27.0XXS - Traumatic pneumothorax, sequela (3) Subcutaneous emphysema Qualifiers: Encounter type: initial encounter Qualified Code(s): T79.7XXA - Traumatic subcutaneous emphysema, initial encounter
--- NOTE | 2018-06-01 11:25 | P.PN ---
Subjective Interval history: Follow-up pneumothorax/emphysema May 29, 2018-patient seen and examined, no acute event overnight, still short of breath. Dr. Crane at bedside May 30, 2018-patient seen and examined, still complaining of facial puffiness with some mild shortness of breath. May 31, 2018-patient seen and examined, reports some improvement of facial puffiness and denies any significant shortness of breath. BP labile. June 01, 2018-patient seen and examined, on p.o. prednisone. No acute event overnight. No significant shortness of breath. Chest tubes still in place. Physical Exam Vital signs: Vital Signs 05/31/18 12:00 05/31/18 13:00 05/31/18 15:00 Temperature Pulse Rate 70 82 69 Respiratory Rate Blood Pressure Pulse Oximetry 05/31/18 15:19 05/31/18 15:36 05/31/18 16:00 Temperature 97.4 F L Pulse Rate 63 63 68 Respiratory Rate 16 16 Blood Pressure 128/60 Pulse Oximetry 96 96 05/31/18 17:00 05/31/18 18:00 05/31/18 19:00 Temperature 98.3 F Pulse Rate 84 78 77 Respiratory Rate 20 Blood Pressure 123/58 L Pulse Oximetry 95 05/31/18 19:53 05/31/18 20:00 05/31/18 21:00 Temperature Pulse Rate 78 74 72 Respiratory Rate 18 Blood Pressure Pulse Oximetry 05/31/18 22:00 05/31/18 23:00 05/31/18 23:16 Temperature 98.3 F Pulse Rate 68 77 59 L Respiratory Rate 20 20 Blood Pressure 123/58 L Pulse Oximetry 95 98 06/01/18 00:00 06/01/18 01:00 06/01/18 02:00 Temperature Pulse Rate 60 60 58 L Respiratory Rate Blood Pressure Pulse Oximetry 06/01/18 03:00 06/01/18 04:00 06/01/18 05:00 Temperature 98.1 F Pulse Rate 58 L 56 L 59 L Respiratory Rate 20 Blood Pressure 123/60 Pulse Oximetry 97 06/01/18 06:00 06/01/18 07:00 06/01/18 08:00 Temperature 98.1 F Pulse Rate 60 62 58 L Respiratory Rate 18 Blood Pressure 120/68 Pulse Oximetry 98 06/01/18 08:02 06/01/18 09:00 Temperature Pulse Rate 58 L 70 Respiratory Rate Blood Pressure Pulse Oximetry 98 Intake & Output 05/31/18 06/01/18 06/01/18 18:59 06:59 18:59 Intake Total 1080 / 1080 240 / 240 Output Total 850 / 850 380 / 380 Balance 230 / 230 -140 / -140 Weight 86.5 kg Intake: Oral 1080 / 1080 240 / 240 Output: Urine 850 / 850 380 / 380 Chest Tube Drainage 0 / 0 #1 Right Anterior 0 / 0 #2 Right Anterior 0 / 0 Other: Date of Last Bowel Movement 05/28/18 05/28/18 05/28/18 Narrative: GENERAL This elderly W male, with improving periorbital edema and SubQ air over neck and Face . SKIN: Warm and dry. HEAD: Normocephalic. EYES: No scleral icterus. . improving bilateral puffy and swollen eyelids NECK: Supple, trachea midline. No JVD or lymphadenopathy. CARDIOVASCULAR: Regular rate and rhythm without murmurs, gallops, or rubs. RESPIRATORY: Breath sounds decreased bilaterally.Has 2 Chest tubes in Right chest . GASTROINTESTINAL: Abdomen soft, non-tender, nondistended. MUSCULOSKELETAL: No cyanosis, trace edema. BACK: Nontender without obvious deformity. No CVA tenderness. NEURO: awake, oriented x 3, follows commands. no gross deficit. Results - Labs CBC & Chem 7: 05/31/18 04:47 05/31/18 04:47 Laboratory Results - last 24 hr 05/31/18 05/31/18 05/31/18 12:08 16:45 22:22 POC Glucose 384 H 323 H 283 H Assessment and Plan - Assessment (1) Syncope Code(s): R55 - Syncope and collapse Status: Acute (2) PNA (pneumonia) Code(s): J18.9 - Pneumonia, unspecified organism Status: Acute (3) COPD (chronic obstructive pulmonary disease) Code(s): J44.9 - Chronic obstructive pulmonary disease, unspecified Status: Acute (4) Pneumothorax Code(s): J93.9 - Pneumothorax, unspecified Status: Acute (5) Subcutaneous emphysema Code(s): T79.7XXA - Traumatic subcutaneous emphysema, initial encounter Status : Acute - Plan 83-year-old man with Community-acquired pneumonia; failed outpatient therapy -d/c cefepime. -continue with DuoNeb as needed Right chest wall contusion secondary to syncope, found with right rib fractures 9 through 11, traumatic right pneumothorax and subq emphysema -appreciate pulmonary input -IR consult for CT placement. Status post chest tube placement 05/25/2018 -continue with oxygen. -Remains with significant subcutaneous emphysema. Chest x-ray May 30, 2018 with persistent diffuse subcutaneous emphysema, but no pneumothorax -Appreciate input from cardiothoracic surgery. Chest tube management per CTS - Continue with prednisone 10 mg twice daily, DuoNeb Syncope: acute syncopal event CT Head w/ no acute findings, images reviewed. Initial trop negative -serial cardiac enzymes negative -PT for eval/tx. -Follows w/ Dr. Foss, will consult as needed. -2D echo with EF 50-55%. -V/Q negative for PE COPD: Chronic Respiratory Failure w/ Acute Exacerbation. -DuoNeb scheduled and as needed, -s/p Solu-Medrol 40mg Q8H, currently on prednisone 10 mg twice daily -DuoNeb, Symbicort. -Monitor O2. Hypertension -On [id number] daily -Clonidine PRN -Lopressor 12.5 mg p.o. twice daily. (3) COPD (chronic obstructive pulmonary disease) Qualifiers: COPD type: COPD with acute exacerbation Qualified Code(s): J44.1 - Chronic obstructive pulmonary disease with (acute) exacerbation (4) Pneumothorax Qualifiers: Pneumothorax type: traumatic Encounter type: sequela Qualified Code(s): S27.0XXS - Traumatic pneumothorax, sequela (5) Subcutaneous emphysema Qualifiers: Encounter type: initial encounter Qualified Code(s): T79.7XXA - Traumatic subcutaneous emphysema, initial encounter
--- NOTE | 2018-06-01 13:03 | P.PN ---
Subjective Interval history: Doing better. Sub Q improved. Chest tubes with min leak. Able to take a deep breath. Physical Exam Vital signs: Vital Signs 05/31/18 13:00 05/31/18 15:00 05/31/18 15:19 Temperature 97.4 F L Pulse Rate 82 69 63 Respiratory Rate 16 Blood Pressure 128/60 Pulse Oximetry 96 05/31/18 15:36 05/31/18 16:00 05/31/18 17:00 Temperature Pulse Rate 63 68 84 Respiratory Rate 16 Blood Pressure Pulse Oximetry 96 05/31/18 18:00 05/31/18 19:00 05/31/18 19:53 Temperature 98.3 F Pulse Rate 78 77 78 Respiratory Rate 20 18 Blood Pressure 123/58 L Pulse Oximetry 95 05/31/18 20:00 05/31/18 21:00 05/31/18 22:00 Temperature Pulse Rate 74 72 68 Respiratory Rate Blood Pressure Pulse Oximetry 05/31/18 23:00 05/31/18 23:16 06/01/18 00:00 Temperature 98.3 F Pulse Rate 77 59 L 60 Respiratory Rate 20 20 Blood Pressure 123/58 L Pulse Oximetry 95 98 06/01/18 01:00 06/01/18 02:00 06/01/18 03:00 Temperature 98.1 F Pulse Rate 60 58 L 58 L Respiratory Rate 20 Blood Pressure 123/60 Pulse Oximetry 97 06/01/18 04:00 06/01/18 05:00 06/01/18 06:00 Temperature Pulse Rate 56 L 59 L 60 Respiratory Rate Blood Pressure Pulse Oximetry 06/01/18 07:00 06/01/18 08:00 06/01/18 08:02 Temperature 98.1 F Pulse Rate 62 58 L 58 L Respiratory Rate 18 Blood Pressure 120/68 Pulse Oximetry 98 98 06/01/18 09:00 06/01/18 11:54 Temperature Pulse Rate 70 60 Respiratory Rate 18 Blood Pressure Pulse Oximetry 95 Intake & Output 05/31/18 06/01/18 06/01/18 18:59 06:59 18:59 Intake Total 1080 / 1080 240 / 240 Output Total 850 / 850 380 / 380 Balance 230 / 230 -140 / -140 Weight 86.5 kg Intake: Oral 1080 / 1080 240 / 240 Output: Urine 850 / 850 380 / 380 Chest Tube Drainage 0 / 0 #1 Right Anterior 0 / 0 #2 Right Anterior 0 / 0 Other: Date of Last Bowel Movement 05/28/18 05/28/18 05/28/18 Narrative: GENERAL This elderly W male, with improving periorbital edema and SubQ air. SKIN: Warm and dry. HEAD: Normocephalic. EYES: No scleral icterus. improving bilateral puffy and swollen eyelids NECK: Supple, trachea midline. No JVD or lymphadenopathy. CARDIOVASCULAR: Regular rate and rhythm without murmurs, gallops, or rubs. RESPIRATORY: Breath sounds Distant bilaterally.Has 2 Chest tubes in Right chest . GASTROINTESTINAL: Abdomen soft, non-tender, nondistended. BS + MUSCULOSKELETAL: No cyanosis, no edema. BACK: Nontender without obvious deformity. NEURO: awake, oriented x 3, follows commands. no gross deficit. Results - Labs CBC & Chem 7: 05/31/18 04:47 05/31/18 04:47 Laboratory Results - last 24 hr 05/31/18 05/31/18 16:45 22:22 POC Glucose 323 H 283 H Assessment and Plan - Assessment (1) Chest wall contusion Code(s): S20.219A - Contusion of unspecified front wall of thorax, initial encounter Status: Acute (2) Contusion, shoulder /upper arm Status: Acute (3) Acute exacerbation of chronic obstructive airways disease Code(s): J44.1 - Chronic obstructive pulmonary disease with (acute) exacerbation Status: Acute (4) Syncope Code(s): R55 - Syncope and collapse Status: Acute (5) Pneumonia Code(s): J18.9 - Pneumonia, unspecified organism Status: Acute (6) COPD (chronic obstructive pulmonary disease) Code(s): J44.9 - Chronic obstructive pulmonary disease, unspecified Status: Acute (7) Pneumothorax Code(s): J93.9 - Pneumothorax, unspecified Status: Acute (8) Subcutaneous emphysema Code(s): T79.7XXA - Traumatic subcutaneous emphysema, initial encounter Status : Acute (9) Ribs, multiple fractures Code(s): S22.49XA - Multiple fractures of ribs, unspecified side, initial encounter for closed fracture Status: Acute (10) Ribs, multiple fractures Code(s): S22.49XA - Multiple fractures of ribs, unspecified side, initial encounter for closed fracture Status: Acute - Plan 1. Cont O2 at 2 L. N/C 2. Cont Duoneb nebs qid. 3. Continue antibiotics . 4. CXR, BMP in am 5. Symbicort 160/4.5 mcg 2 puffs BID 6. Cont Prednisone 10 mg BID 7. IS at bedside q2h 8. Chest tube to Suction. (6) COPD (chronic obstructive pulmonary disease) Qualifiers: COPD type: COPD with acute exacerbation Qualified Code(s): J44.1 - Chronic obstructive pulmonary disease with (acute) exacerbation (7) Pneumothorax Qualifiers: Pneumothorax type: traumatic Encounter type: sequela Qualified Code(s): S27.0XXS - Traumatic pneumothorax, sequela (8) Subcutaneous emphysema Qualifiers: Encounter type: initial encounter Qualified Code(s): T79.7XXA - Traumatic subcutaneous emphysema, initial encounter
--- NOTE | 2018-06-01 15:04 | P.DCO ---
- Diagnosis (1) COPD (chronic obstructive pulmonary disease) (2) Subcutaneous emphysema - Home Health Nursing Order: Signs/symptoms of disease process, Oxygen administration education, Wound care and dressing changes, Nursing assessment with vital signs - Home Health Aide Instructions: Thoracic Surgery patients Mandatory frequency Assess and evaluation, 2-3 x a week for one week Initial visit 1. Review post chest surgery instructions chest precautions, Activity, Elastic hose, Incision care, Driving, Incentive spirometry, Smoking, [place] , Work and other) 2. Need Betadine to paint incision 3. Medication reconciliation 4. Importance of follow up care/ check on appointments 5. Make calendar record temperature daily 6. When to call Home nurse, review instructions, phone list 7. Incentive Spirometry, demonstration Visit 1- Begin discharge instruction for patient family and/ or caregiver using teach back method- 1. Signs and symptoms of infection 2. Disease characteristics 3. Medicines and side effects 4. Foods and nutrition/ appetite 5. Infection control/ hand washing/ hygiene Visit 2- Continue teaching 1. Discharge instructions- include additional information on smoking cessation , Visit 3- Continue teaching- 1. Cough and deep breathing, incision monitoring. For any questions please call : / [facility] [phone] Incentive spirometry Q1 hr x 10, while awake, also use acapella device hourly whole Chest wall precautions: NO pushing or pulling, ( pt must use chest pillow support chest with all activities and with coughing Daily incision care: ok to shower ( 48hrs after chest tube removed) and then daily, no tub bath. Wash all incisions with liquid dial soap, clean wash cloth to each site, rinse and pat dry. Observe for any signs of infection, such as drainage which is dark yellow, cunningham, green or foul smelling. Immediately report to the surgeon any drainage from the chest incision, or legs, and for any abnormal drainage from the chest tube sites. Notify surgeon if any temp > 101.5 degrees F. When specialty dressing removed/ or if you do not have one, continue to shower daily as above, then rinse and pat incision dry and paint with betadine daily x 5 days. Allow steri strips to fall off if you have any. Avoid lotions, creams, salves, oils, etc. for the first month For Dr. Anthony patients , please obtain PA & Lat CXR in 2 weeks, results to Dr. Anthony ( prescription will be given) ( ) (Tele: ) , F/U appointment: as per ME instructions: PCP in 2 weeks, CV surgeon 2 weeks, Material Requirements Planning Manager 3-4 weeks For any questions regarding incisions/ dressing / meds / post op care or above Symptoms, Thursday 8am-5pm Heart & Vascular Surgery Office ( Dr. Zelaya & Dr. Anthony), After Hours / Nights (5pm -8am) Weekends and Holidays Please call [facility] Card[facility] (CIC) Charge Nurse - Certification I have seen patient Dany Jessica on 06/01/18. My clinical findings support the need for the requested home health care services because: Patient has SOB, Deconditioned with increased weakness I certify that my clinical findings support that this patient is homebound because: Post-op weakness, Hx COPD - exertion dyspnea/weakness (1) COPD (chronic obstructive pulmonary disease) Qualifiers: COPD type: COPD with acute exacerbation Qualified Code(s): J44.1 - Chronic obstructive pulmonary disease with (acute) exacerbation (2) Subcutaneous emphysema Qualifiers: Encounter type: initial encounter Qualified Code(s): T79.7XXA - Traumatic subcutaneous emphysema, initial encounter
--- NOTE | 2018-06-02 06:17 | XR ---
EXAM DATE: 06/02/2018 6:04 AM EDT AGE/SEX: 83 years / Male INDICATIONS: Shortness of breath. CLINICAL DATA: This is the patient's subsequent encounter. Patient reports that signs and symptoms h ave been present for 1 week and indicates a pain score of Nonresponsive. MEDICAL/SURGICAL HISTORY: Chronic obstructive pulmonary disease. Emphysema. Myocardial infarc tion. None. [place] [facility] [place]. . FINDINGS: Mild parenchymal consolidation and small effusions at each base not significantly changed on the righ t and slightly worse on the left. 2 right chest tubes remain. No pneumothorax but there is large amount of chest wall emphysema again n oted. Heart size stable, within normal limits. CONCLUSION: 1. Mild parenchymal consolidation and small effusions of both bases, unchanged on the right and mode stly worse on the left. 2. 2 right chest tubes. Persistent chest wall emphysema but no perceptible pneumothorax. Electronically signed by: Mook Mcclellan MD 06/02/2018 6:16 AM EDT
[2018-06-02] MEDS: Insulin NovoLOG Aspart Correctional Sugar Inj SQ SCH ×4 (08:19→21:31)
[2018-06-02] MEDS: Metoprolol Tartrate 25 MG Tablet PO SCH ×2 (08:20→21:20)
[2018-06-02] MEDS: Senna/Docusate Sodium 8.6/50 MG Tablet PO SCH ×2 (08:20→21:20)
[2018-06-02] MEDS: amLODIPine 10 MG Tablet PO SCH (08:20)
[2018-06-02] MEDS: predniSONE 10 MG Tablet PO SCH (08:20)
[2018-06-02] MEDS: Budesonide-Formoterol 160/4.5 MCG 6 GM Inhaler INH SCH ×2 (08:22→21:32)
[2018-06-02] MEDS: Multivitamin/Minerals Therapeutic Tablet PO SCH (08:22)
--- NOTE | 2018-06-02 10:24 | P.PNCV ---
- Note Subjective/Hospital Course: worsening sub q emphysema despite pig tail cath chest tube plan for large bore chest tube in OR in am discussed with pt and family 05/29/18 Subcutaneous emphysema subjectively improved as he can now open one eye. Good appetite 05/30/18 Continued improvement in subcutaneous emphysema. Needs PT/OT - deconditioned 05/31 OOB to chair, chest tube x 2 now to 10cm suction, no air leak subq emphysema improving on nasal cannula 06/01 no air leak noted in chest tube x [address] pig tail cath to water seal leave right lateral chest tube to 10cm suction, still has significant subq emphysema / however improving slowly now can open left eye, right eye still closed ( pt has macular degeneration right eye ) eval for removal of pig tail cath in am 06/02 CXR noted, no PTX. subq emphysema improving daily right pigtail cath removed, right upper chest right lateral chest wall chest tube no clamped f/u CXR film in am , if any worsening subq emphysema will unclamp and place back to suction Objective: Vital Signs - 24 hr 06/01/18 11:00 06/01/18 11:54 06/01/18 15:00 Temperature Pulse Rate 62 60 60 Respiratory Rate 18 18 18 Blood Pressure Pulse Oximetry 95 06/01/18 15:39 06/01/18 15:40 06/01/18 17:00 Temperature Pulse Rate 60 62 Respiratory Rate 18 Blood Pressure Pulse Oximetry 95 06/01/18 18:00 06/01/18 18:27 06/01/18 19:00 Temperature 98 F Pulse Rate 60 60 67 Respiratory Rate 20 18 Blood Pressure 118/62 136/63 Pulse Oximetry 97 96 06/01/18 20:00 06/01/18 20:02 06/01/18 21:00 Temperature Pulse Rate 66 75 72 Respiratory Rate 18 Blood Pressure Pulse Oximetry 95 06/01/18 22:00 06/01/18 23:00 06/02/18 00:00 Temperature 98 F Pulse Rate 70 58 L 57 L Respiratory Rate 18 Blood Pressure 119/56 L Pulse Oximetry 96 06/02/18 00:47 06/02/18 01:00 06/02/18 02:00 Temperature Pulse Rate 57 L 61 56 L Respiratory Rate 16 Blood Pressure Pulse Oximetry 06/02/18 03:00 06/02/18 04:00 06/02/18 04:38 Temperature 98.2 F Pulse Rate 60 62 57 L Respiratory Rate 18 18 Blood Pressure 153/68 H Pulse Oximetry 97 06/02/18 05:00 06/02/18 06:00 06/02/18 07:00 Temperature 98.6 F Pulse Rate 65 54 L 63 Respiratory Rate 18 Blood Pressure 131/66 Pulse Oximetry 96 06/02/18 07:29 06/02/18 08:00 Temperature Pulse Rate 60 63 Respiratory Rate 16 Blood Pressure Pulse Oximetry 98 SKIN: Warm and dry. subq emphysema improving , still has some to chest, arms and back , now able to open right eye HEAD: Normocephalic. EYES: No scleral icterus. No injection or drainage. NECK: Supple, trachea midline. No JVD or lymphadenopathy. CARDIOVASCULAR: Regular rate and rhythm without murmurs, gallops, or rubs. RESPIRATORY: Breath sounds equal bilaterally. No accessory muscle use. right lateral chest tube now clamped GASTROINTESTINAL: Abdomen soft, non-tender, nondistended. MUSCULOSKELETAL: No cyanosis, or edema. BACK: Nontender without obvious deformity. No CVA tenderness. Labs: Laboratory Results - last 12 hr 06/01/18 06/02/18 22:33 08:00 POC Glucose 359 H 198 H Result Diagrams: 05/31/18 04:47 05/31/18 04:47 - Plan (1) COPD (chronic obstructive pulmonary disease) Plan: nebs steroids (2) Subcutaneous emphysema Plan: right upper chest wall chest tube dc without difficulty right lateral chest tube now clamped f/u CXR in am, eval for removal (4) Pneumothorax Plan: chest tubes to 10 cm suction right anterior chest tube to water seal then eval to remove pig tail cath first / then large bore (1) COPD (chronic obstructive pulmonary disease) Qualifiers: COPD type: COPD with acute exacerbation Qualified Code(s): J44.1 - Chronic obstructive pulmonary disease with (acute) exacerbation (2) Subcutaneous emphysema Qualifiers: Encounter type: initial encounter Qualified Code(s): T79.7XXA - Traumatic subcutaneous emphysema, initial encounter (4) Pneumothorax Qualifiers: Pneumothorax type: traumatic Encounter type: sequela Qualified Code(s): S27.0XXS - Traumatic pneumothorax, sequela
--- NOTE | 2018-06-02 10:51 | P.PN ---
Subjective Interval history: Follow-up pneumothorax/emphysema May 29, 2018-patient seen and examined, no acute event overnight, still short of breath. Dr. Crane at bedside May 30, 2018-patient seen and examined, still complaining of facial puffiness with some mild shortness of breath. May 31, 2018-patient seen and examined, reports some improvement of facial puffiness and denies any significant shortness of breath. BP labile. June 01, 2018-patient seen and examined, on p.o. prednisone. No acute event overnight. No significant shortness of breath. Chest tubes still in place. June 02, 2018-patient seen and examined; state he is breathing better. Facial swelling improving. No acute event overnight Physical Exam Vital signs: Vital Signs 06/01/18 11:00 06/01/18 11:54 06/01/18 15:00 Temperature Pulse Rate 62 60 60 Respiratory Rate 18 18 18 Blood Pressure Pulse Oximetry 95 06/01/18 15:39 06/01/18 15:40 06/01/18 17:00 Temperature Pulse Rate 60 62 Respiratory Rate 18 Blood Pressure Pulse Oximetry 95 06/01/18 18:00 06/01/18 18:27 06/01/18 19:00 Temperature 98 F Pulse Rate 60 60 67 Respiratory Rate 20 18 Blood Pressure 118/62 136/63 Pulse Oximetry 97 96 06/01/18 20:00 06/01/18 20:02 06/01/18 21:00 Temperature Pulse Rate 66 75 72 Respiratory Rate 18 Blood Pressure Pulse Oximetry 95 06/01/18 22:00 06/01/18 23:00 06/02/18 00:00 Temperature 98 F Pulse Rate 70 58 L 57 L Respiratory Rate 18 Blood Pressure 119/56 L Pulse Oximetry 96 06/02/18 00:47 06/02/18 01:00 06/02/18 02:00 Temperature Pulse Rate 57 L 61 56 L Respiratory Rate 16 Blood Pressure Pulse Oximetry 06/02/18 03:00 06/02/18 04:00 06/02/18 04:38 Temperature 98.2 F Pulse Rate 60 62 57 L Respiratory Rate 18 18 Blood Pressure 153/68 H Pulse Oximetry 97 06/02/18 05:00 06/02/18 06:00 06/02/18 07:00 Temperature 98.6 F Pulse Rate 65 54 L 63 Respiratory Rate 18 Blood Pressure 131/66 Pulse Oximetry 96 06/02/18 07:29 06/02/18 08:00 Temperature Pulse Rate 60 63 Respiratory Rate 16 Blood Pressure Pulse Oximetry 98 Intake & Output 06/01/18 06/02/18 06/02/18 18:59 06:59 18:59 Intake Total 540 / 540 240 / 240 Output Total 385 / 385 1500 / 1500 Balance 155 / 155 -1260 / -1260 Intake: Oral 240 / 240 240 / 240 Anesthesia Amount 300 / 300 Output: Urine 380 / 380 1500 / 1500 Estimated Blood Loss 5 / 5 Chest Tube Drainage 0 / 0 #2 Right Anterior 0 / 0 Other: # Voids 4 6 Date of Last Bowel Movement 05/28/18 # Bowel Movements 2 0 # Incontinent Bowel Movements 0 Narrative: GENERAL This elderly W male, with improving periorbital edema and SubQ air. SKIN: Warm and dry. HEAD: Normocephalic. EYES: No scleral icterus. improving bilateral puffy and swollen eyelids NECK: Supple, trachea midline. No JVD or lymphadenopathy. CARDIOVASCULAR: Regular rate and rhythm without murmurs, gallops, or rubs. RESPIRATORY: Breath sounds Distant bilaterally.Has 2 Chest tubes in Right chest . Positive for crepitus GASTROINTESTINAL: Abdomen soft, non-tender, nondistended. BS + MUSCULOSKELETAL: No cyanosis, no edema. BACK: Nontender without obvious deformity. NEURO: awake, oriented x 3, follows commands. no gross deficit. Results - Labs CBC & Chem 7: 05/31/18 04:47 05/31/18 04:47 Laboratory Results - last 24 hr 06/01/18 06/01/18 06/02/18 16:06 22:33 08:00 POC Glucose 337 H 359 H 198 H - Imaging Impressions Chest X-Ray 06/02/18 06:00 CONCLUSION: 1. Mild parenchymal consolidation and small effusions of both bases, unchanged on the right and modestly worse on the left. 2. 2 right chest tubes. Persistent chest wall emphysema but no perceptible pneumothorax. Assessment and Plan - Assessment (1) Syncope Code(s): R55 - Syncope and collapse Status: Acute (2) PNA (pneumonia) Code(s): J18.9 - Pneumonia, unspecified organism Status: Acute (3) COPD (chronic obstructive pulmonary disease) Code(s): J44.9 - Chronic obstructive pulmonary disease, unspecified Status: Acute (4) Pneumothorax Code(s): J93.9 - Pneumothorax, unspecified Status: Acute (5) Subcutaneous emphysema Code(s): T79.7XXA - Traumatic subcutaneous emphysema, initial encounter Status : Acute - Plan 83-year-old man with Community-acquired pneumonia; failed outpatient therapy-resolved -d/c cefepime. -continue with DuoNeb as needed Right chest wall contusion secondary to syncope, found with right rib fractures 9 through 11, traumatic right pneumothorax and subq emphysema -appreciate pulmonary input -Status post chest tube placement 05/25/2018 -continue with oxygen. -Remains with significant subcutaneous emphysema. Repeat chest x-ray today with Persistent chest wall emphysema but no perceptible pneumothorax -Appreciate input from cardiothoracic surgery. Chest tube management per CTS - Continue with prednisone 10 mg twice daily, DuoNeb Syncope: She has been stable since admission CT Head w/ no acute findings. -serial cardiac enzymes negative -PT for eval/tx. -V/Q negative for PE COPD: Chronic Respiratory Failure w/ Acute Exacerbation. -DuoNeb scheduled and as needed, -s/p Solu-Medrol 40mg Q8H, currently on prednisone 10 mg twice daily -DuoNeb, Symbicort. -Monitor O2. Hypertension -On [id number] daily -Clonidine PRN -Lopressor 12.5 mg p.o. twice daily. PT to treat and eval Discharge Planning: Discharge when medically stable (3) COPD (chronic obstructive pulmonary disease) Qualifiers: COPD type: COPD with acute exacerbation Qualified Code(s): J44.1 - Chronic obstructive pulmonary disease with (acute) exacerbation (4) Pneumothorax Qualifiers: Pneumothorax type: traumatic Encounter type: sequela Qualified Code(s): S27.0XXS - Traumatic pneumothorax, sequela (5) Subcutaneous emphysema Qualifiers: Encounter type: initial encounter Qualified Code(s): T79.7XXA - Traumatic subcutaneous emphysema, initial encounter
--- NOTE | 2018-06-02 12:11 | P.PN ---
Subjective Interval history: he is better. has one chest tube now. CXR showed no pneumothorax On O2 2 L Physical Exam Vital signs: Vital Signs 06/01/18 15:00 06/01/18 15:39 06/01/18 15:40 Temperature Pulse Rate 60 60 Respiratory Rate 18 18 Blood Pressure Pulse Oximetry 95 06/01/18 17:00 06/01/18 18:00 06/01/18 18:27 Temperature Pulse Rate 62 60 60 Respiratory Rate 20 Blood Pressure 118/62 Pulse Oximetry 97 06/01/18 19:00 06/01/18 20:00 06/01/18 20:02 Temperature 98 F Pulse Rate 67 66 75 Respiratory Rate 18 18 Blood Pressure 136/63 Pulse Oximetry 96 95 06/01/18 21:00 06/01/18 22:00 06/01/18 23:00 Temperature 98 F Pulse Rate 72 70 58 L Respiratory Rate 18 Blood Pressure 119/56 L Pulse Oximetry 96 06/02/18 00:00 06/02/18 00:47 06/02/18 01:00 Temperature Pulse Rate 57 L 57 L 61 Respiratory Rate 16 Blood Pressure Pulse Oximetry 06/02/18 02:00 06/02/18 03:00 06/02/18 04:00 Temperature 98.2 F Pulse Rate 56 L 60 62 Respiratory Rate 18 Blood Pressure 153/68 H Pulse Oximetry 97 06/02/18 04:38 06/02/18 05:00 06/02/18 06:00 Temperature Pulse Rate 57 L 65 54 L Respiratory Rate 18 Blood Pressure Pulse Oximetry 06/02/18 07:00 06/02/18 07:29 06/02/18 08:00 Temperature 98.6 F Pulse Rate 63 60 63 Respiratory Rate 18 16 Blood Pressure 131/66 Pulse Oximetry 96 98 06/02/18 11:00 06/02/18 11:22 Temperature 97.7 F Pulse Rate 54 L 55 L Respiratory Rate 20 16 Blood Pressure 135/61 Pulse Oximetry 96 Intake & Output 06/01/18 06/02/18 06/02/18 18:59 06:59 18:59 Intake Total 540 / 540 240 / 240 Output Total 385 / 385 1500 / 1500 Balance 155 / 155 -1260 / -1260 Intake: Oral 240 / 240 240 / 240 Anesthesia Amount 300 / 300 Output: Urine 380 / 380 1500 / 1500 Estimated Blood Loss 5 / 5 Chest Tube Drainage 0 / 0 #2 Right Anterior 0 / 0 Other: # Voids 4 6 Date of Last Bowel Movement 05/28/18 # Bowel Movements 2 0 # Incontinent Bowel Movements 0 Narrative: GENERAL This elderly W/ male, in no distress SKIN: Warm and dry. HEAD: Normocephalic. EYES: No scleral icterus. improving bilateral puffy and swollen eyelids NECK: Supple, trachea midline. No JVD or lymphadenopathy. CARDIOVASCULAR: Regular rate and rhythm without murmurs, gallops, or rubs. RESPIRATORY: Breath sounds Distant bilaterally.Has 1 Chest tube in Right chest . Mild crepitus GASTROINTESTINAL: Abdomen soft, non-tender, nondistended. BS + MUSCULOSKELETAL: No cyanosis, no edema. BACK: Nontender without obvious deformity. NEURO: awake, oriented x 3, follows commands. no gross deficit. Results - Labs CBC & Chem 7: 05/31/18 04:47 05/31/18 04:47 Laboratory Results - last 24 hr 06/01/18 06/01/18 06/02/18 16:06 22:33 08:00 POC Glucose 337 H 359 H 198 H 06/02/18 11:27 POC Glucose 317 H - Imaging Impressions Chest X-Ray 06/02/18 06:00 CONCLUSION: 1. Mild parenchymal consolidation and small effusions of both bases, unchanged on the right and modestly worse on the left. 2. 2 right chest tubes. Persistent chest wall emphysema but no perceptible pneumothorax. Assessment and Plan - Assessment (1) Chest wall contusion Code(s): S20.219A - Contusion of unspecified front wall of thorax, initial encounter Status: Acute (2) Contusion, shoulder /upper arm Status: Acute (3) Acute exacerbation of chronic obstructive airways disease Code(s): J44.1 - Chronic obstructive pulmonary disease with (acute) exacerbation Status: Acute (4) Syncope Code(s): R55 - Syncope and collapse Status: Acute (5) Pneumonia Code(s): J18.9 - Pneumonia, unspecified organism Status: Acute (6) COPD (chronic obstructive pulmonary disease) Code(s): J44.9 - Chronic obstructive pulmonary disease, unspecified Status: Acute (7) Pneumothorax Code(s): J93.9 - Pneumothorax, unspecified Status: Acute (8) Subcutaneous emphysema Code(s): T79.7XXA - Traumatic subcutaneous emphysema, initial encounter Status : Acute (9) Ribs, multiple fractures Code(s): S22.49XA - Multiple fractures of ribs, unspecified side, initial encounter for closed fracture Status: Acute (10) Ribs, multiple fractures Code(s): S22.49XA - Multiple fractures of ribs, unspecified side, initial encounter for closed fracture Status: Acute - Plan 1. Cont O2 at 2 L. N/C and wean to RA 2. Cont Duoneb nebs qid. 3. Continue antibiotics . 4. CXR, BMP in am 5. Symbicort 160/4.5 mcg 2 puffs BID 6. Taper Prednisone 15 mg daily 7. IS at bedside q2h 8. Chest tube to Suction. (6) COPD (chronic obstructive pulmonary disease) Qualifiers: COPD type: COPD with acute exacerbation Qualified Code(s): J44.1 - Chronic obstructive pulmonary disease with (acute) exacerbation (7) Pneumothorax Qualifiers: Pneumothorax type: traumatic Encounter type: sequela Qualified Code(s): S27.0XXS - Traumatic pneumothorax, sequela (8) Subcutaneous emphysema Qualifiers: Encounter type: initial encounter Qualified Code(s): T79.7XXA - Traumatic subcutaneous emphysema, initial encounter
--- NOTE | 2018-06-03 03:33 | XR ---
EXAM DATE: 06/03/2018 3:27 AM EDT AGE/SEX: 83 years / Male INDICATIONS: Short of breath. CLINICAL DATA: This is the patient's subsequent encounter. Patient reports that signs and symptoms h ave been present for 4 - 6 days and indicates a pain score of 0/10. MEDICAL/SURGICAL HISTORY: Chronic obstructive pulmonary disease. Emphysema. Myocardial infarc tion. None. COMPARISON: [facility] – [place], CHEST 1V SINGLE AP, 06/02/2018. . FINDINGS: Persistent bilateral chest wall and neck soft tissue emphysema. No pneumothorax seen. One of the righ t chest tubes has been removed. Mild bibasilar consolidation not significantly changed. No large effusion demonstrated. CONCLUSION: 1. 1 of the 2 right chest tubes has been removed. No perceptible pneumothorax. There is persistent c hest wall emphysema. 2. Mild bibasilar consolidation not significantly changed. Electronically signed by: Mook Mcclellan MD 06/03/2018 3:32 AM EDT
[2018-06-03] MEDS: amLODIPine 10 MG Tablet PO SCH (09:43)
[2018-06-03] MEDS: predniSONE 5 MG Tablet PO SCH (09:44)
[2018-06-03] MEDS: Senna/Docusate Sodium 8.6/50 MG Tablet PO SCH ×2 (09:44→21:07)
[2018-06-03] MEDS: Metoprolol Tartrate 25 MG Tablet PO SCH ×2 (09:44→21:07)
[2018-06-03] MEDS: Insulin NovoLOG Aspart Correctional Sugar Inj SQ SCH ×4 (09:44→21:08)
[2018-06-03] MEDS: Multivitamin/Minerals Therapeutic Tablet PO SCH (09:44)
[2018-06-03] MEDS: Budesonide-Formoterol 160/4.5 MCG 6 GM Inhaler INH SCH ×2 (09:45→21:07)
--- NOTE | 2018-06-03 10:11 | P.PN ---
Subjective Interval history: Follow-up pneumothorax/emphysema May 29, 2018-patient seen and examined, no acute event overnight, still short of breath. Dr. Crane at bedside May 30, 2018-patient seen and examined, still complaining of facial puffiness with some mild shortness of breath. May 31, 2018-patient seen and examined, reports some improvement of facial puffiness and denies any significant shortness of breath. BP labile. June 01, 2018-patient seen and examined, on p.o. prednisone. No acute event overnight. No significant shortness of breath. Chest tubes still in place. June 02, 2018-patient seen and examined; state he is breathing better. Facial swelling improving. No acute event overnight June 03, 2018-patient seen and examined, breathing better. Only has one chest tube now .prednisone down to 50 mg daily. Physical Exam Vital signs: Vital Signs 06/02/18 11:00 06/02/18 11:22 06/02/18 12:00 Temperature 97.7 F Pulse Rate 52 L 55 L 64 Respiratory Rate 20 16 Blood Pressure 135/61 Pulse Oximetry 96 06/02/18 13:00 06/02/18 14:00 06/02/18 15:00 Temperature 97.7 F Pulse Rate 68 68 67 Respiratory Rate 20 Blood Pressure 126/60 Pulse Oximetry 96 06/02/18 16:00 06/02/18 17:00 06/02/18 18:00 Temperature Pulse Rate 68 62 74 Respiratory Rate Blood Pressure Pulse Oximetry 06/02/18 19:00 06/02/18 19:40 06/02/18 20:00 Temperature 98 F Pulse Rate 65 69 74 Respiratory Rate 18 18 Blood Pressure 112/53 L Pulse Oximetry 97 97 06/02/18 21:00 06/02/18 22:00 06/02/18 23:00 Temperature 98.1 F Pulse Rate 70 68 60 Respiratory Rate 20 Blood Pressure 110/58 L Pulse Oximetry 97 06/03/18 00:00 06/03/18 00:34 06/03/18 01:00 Temperature Pulse Rate 58 L 56 L 54 L Respiratory Rate 20 Blood Pressure Pulse Oximetry 06/03/18 02:00 06/03/18 03:00 06/03/18 04:00 Temperature 98 F Pulse Rate 60 59 L 57 L Respiratory Rate 20 Blood Pressure 111/57 L Pulse Oximetry 98 06/03/18 05:00 06/03/18 05:07 06/03/18 06:00 Temperature Pulse Rate 62 54 L 66 Respiratory Rate 20 Blood Pressure Pulse Oximetry 06/03/18 07:00 06/03/18 08:00 06/03/18 08:29 Temperature 98.2 F Pulse Rate 63 63 72 Respiratory Rate 18 19 Blood Pressure 105/55 L Pulse Oximetry 95 Intake & Output 06/02/18 06/03/18 06/03/18 18:59 06:59 18:59 Intake Total 980 / 980 Output Total 1150 / 1150 400 / 400 Balance -170 / -170 -400 / -400 Weight 87.5 kg Intake: Oral 980 / 980 Output: Urine 1150 / 1150 400 / 400 Chest Tube Drainage 0 / 0 #1 Right Lower Mid-Axillary 0 / 0 Chest Other: # Voids 4 Date of Last Bowel Movement 05/31/18 05/31/18 # Bowel Movements 0 Narrative: GENERAL NAD SKIN: Warm and dry. HEAD: Normocephalic. EYES: No scleral icterus. improving bilateral puffy and swollen eyelids NECK: Supple, trachea midline. No JVD or lymphadenopathy. CARDIOVASCULAR: Regular rate and rhythm without murmurs, gallops, or rubs. RESPIRATORY: Breath sounds Distant bilaterally.1 Chest tube in Right chest . Mild crepitus GASTROINTESTINAL: Abdomen soft, non-tender, nondistended. BS + MUSCULOSKELETAL: No cyanosis, no edema. BACK: Nontender without obvious deformity. NEURO: awake, oriented x 3, follows commands. no gross deficit. Results - Labs CBC & Chem 7: 05/31/18 04:47 05/31/18 04:47 Laboratory Results - last 24 hr 06/02/18 06/02/18 06/02/18 11:27 17:19 21:18 POC Glucose 317 H 340 H 307 H 06/03/18 07:48 POC Glucose 213 H - Imaging Impressions Chest X-Ray 06/03/18 06:00 CONCLUSION: 1. 1 of the 2 right chest tubes has been removed. No perceptible pneumothorax. There is persistent chest wall emphysema. 2. Mild bibasilar consolidation not significantly changed. Assessment and Plan - Assessment (1) Syncope Code(s): R55 - Syncope and collapse Status: Acute (2) PNA (pneumonia) Code(s): J18.9 - Pneumonia, unspecified organism Status: Acute (3) COPD (chronic obstructive pulmonary disease) Code(s): J44.9 - Chronic obstructive pulmonary disease, unspecified Status: Acute (4) Pneumothorax Code(s): J93.9 - Pneumothorax, unspecified Status: Acute (5) Subcutaneous emphysema Code(s): T79.7XXA - Traumatic subcutaneous emphysema, initial encounter Status : Acute - Plan 83-year-old man with Community-acquired pneumonia; failed outpatient therapy-resolved -d/c cefepime. -continue with DuoNeb as needed Right chest wall contusion secondary to syncope, found with right rib fractures 9 through 11, traumatic right pneumothorax and subq emphysema -appreciate pulmonary input -Status post chest tube placement 05/25/2018 -continue with oxygen. -Remains with significant subcutaneous emphysema. Repeat chest x-ray today with Persistent chest wall emphysema but no perceptible pneumothorax -Appreciate input from cardiothoracic surgery. One chest tube was removed yesterday. Chest tube management per CTS - Continue with prednisone 15 mg twice daily, DuoNeb Syncope: She has been stable since admission CT Head w/ no acute findings. -serial cardiac enzymes negative -PT for eval/tx. -V/Q negative for PE COPD: Chronic Respiratory Failure w/ Acute Exacerbation. -DuoNeb scheduled and as needed, -s/p Solu-Medrol 40mg Q8H, currently on prednisone 15 mg twice daily -DuoNeb, Symbicort. -Monitor O2. Hypertension -On [id number] daily -Clonidine PRN -Lopressor 12.5 mg p.o. twice daily. PT to treat and eval Discharge Planning: Discharge when medically stable (3) COPD (chronic obstructive pulmonary disease) Qualifiers: COPD type: COPD with acute exacerbation Qualified Code(s): J44.1 - Chronic obstructive pulmonary disease with (acute) exacerbation (4) Pneumothorax Qualifiers: Pneumothorax type: traumatic Encounter type: sequela Qualified Code(s): S27.0XXS - Traumatic pneumothorax, sequela (5) Subcutaneous emphysema Qualifiers: Encounter type: initial encounter Qualified Code(s): T79.7XXA - Traumatic subcutaneous emphysema, initial encounter
--- NOTE | 2018-06-03 11:35 | P.PN ---
Subjective Interval history: Chest tubes are out. He has No Pneumo on CXR. Wants something for thrush. Breathing better. Physical Exam Vital signs: Vital Signs 06/02/18 12:00 06/02/18 13:00 06/02/18 14:00 Temperature Pulse Rate 64 68 68 Respiratory Rate Blood Pressure Pulse Oximetry 06/02/18 15:00 06/02/18 16:00 06/02/18 17:00 Temperature 97.7 F Pulse Rate 67 68 62 Respiratory Rate 20 Blood Pressure 126/60 Pulse Oximetry 96 06/02/18 18:00 06/02/18 19:00 06/02/18 19:40 Temperature 98 F Pulse Rate 74 65 69 Respiratory Rate 18 18 Blood Pressure 112/53 L Pulse Oximetry 97 97 06/02/18 20:00 06/02/18 21:00 06/02/18 22:00 Temperature Pulse Rate 74 70 68 Respiratory Rate Blood Pressure Pulse Oximetry 06/02/18 23:00 06/03/18 00:00 06/03/18 00:34 Temperature 98.1 F Pulse Rate 60 58 L 56 L Respiratory Rate 20 20 Blood Pressure 110/58 L Pulse Oximetry 97 06/03/18 01:00 06/03/18 02:00 06/03/18 03:00 Temperature 98 F Pulse Rate 54 L 60 59 L Respiratory Rate 20 Blood Pressure 111/57 L Pulse Oximetry 98 06/03/18 04:00 06/03/18 05:00 06/03/18 05:07 Temperature Pulse Rate 57 L 62 54 L Respiratory Rate 20 Blood Pressure Pulse Oximetry 06/03/18 06:00 06/03/18 07:00 06/03/18 08:00 Temperature 98.2 F Pulse Rate 66 63 63 Respiratory Rate 18 Blood Pressure 105/55 L Pulse Oximetry 06/03/18 08:29 Temperature Pulse Rate 72 Respiratory Rate 19 Blood Pressure Pulse Oximetry 95 Intake & Output 06/02/18 06/03/18 06/03/18 18:59 06:59 18:59 Intake Total 980 / 980 Output Total 1150 / 1150 400 / 400 Balance -170 / -170 -400 / -400 Weight 87.5 kg Intake: Oral 980 / 980 Output: Urine 1150 / 1150 400 / 400 Chest Tube Drainage 0 / 0 #1 Right Lower Mid-Axillary 0 / 0 Chest Other: # Voids 4 Date of Last Bowel Movement 05/31/18 05/31/18 # Bowel Movements 0 Narrative: GENERAL Awake and NAD SKIN: Warm and dry. HEAD: Normocephalic. EYES: No scleral icterus. NECK: Supple, trachea midline. No JVD or lymphadenopathy. CARDIOVASCULAR: Regular rate and rhythm without murmurs, gallops, or rubs. RESPIRATORY: Breath sounds Distant bilaterally.Occ Wheeze. GASTROINTESTINAL: Abdomen soft, non-tender, nondistended. BS + MUSCULOSKELETAL: No cyanosis, no edema. BACK: Nontender without obvious deformity. NEURO: awake, oriented x 3, follows commands. no gross deficit. Results - Labs CBC & Chem 7: 05/31/18 04:47 05/31/18 04:47 Laboratory Results - last 24 hr 06/02/18 06/02/18 06/02/18 11:27 17:19 21:18 POC Glucose 317 H 340 H 307 H 06/03/18 07:48 POC Glucose 213 H - Imaging Impressions Chest X-Ray 06/03/18 06:00 CONCLUSION: 1. 1 of the 2 right chest tubes has been removed. No perceptible pneumothorax. There is persistent chest wall emphysema. 2. Mild bibasilar consolidation not significantly changed. Assessment and Plan - Assessment (1) Chest wall contusion Code(s): S20.219A - Contusion of unspecified front wall of thorax, initial encounter Status: Acute (2) Contusion, shoulder /upper arm Status: Acute (3) Acute exacerbation of chronic obstructive airways disease Code(s): J44.1 - Chronic obstructive pulmonary disease with (acute) exacerbation Status: Acute (4) Syncope Code(s): R55 - Syncope and collapse Status: Acute (5) Pneumonia Code(s): J18.9 - Pneumonia, unspecified organism Status: Acute (6) COPD (chronic obstructive pulmonary disease) Code(s): J44.9 - Chronic obstructive pulmonary disease, unspecified Status: Acute (7) Pneumothorax Code(s): J93.9 - Pneumothorax, unspecified Status: Acute (8) Subcutaneous emphysema Code(s): T79.7XXA - Traumatic subcutaneous emphysema, initial encounter Status : Acute (9) Ribs, multiple fractures Code(s): S22.49XA - Multiple fractures of ribs, unspecified side, initial encounter for closed fracture Status: Acute (10) Ribs, multiple fractures Code(s): S22.49XA - Multiple fractures of ribs, unspecified side, initial encounter for closed fracture Status: Acute - Plan 1. Cont O2 at 2 L. N/C and wean to RA 2. Cont Duoneb nebs tid 3. Continue antibiotics . 4. CXR, BMP in am 5. Symbicort 160/4.5 mcg 2 puffs BID 6. Prednisone 15 mg daily 7. IS at bedside q2h 8. Up with help 9. Rehab placement soon. (6) COPD (chronic obstructive pulmonary disease) Qualifiers: COPD type: COPD with acute exacerbation Qualified Code(s): J44.1 - Chronic obstructive pulmonary disease with (acute) exacerbation (7) Pneumothorax Qualifiers: Pneumothorax type: traumatic Encounter type: sequela Qualified Code(s): S27.0XXS - Traumatic pneumothorax, sequela (8) Subcutaneous emphysema Qualifiers: Encounter type: initial encounter Qualified Code(s): T79.7XXA - Traumatic subcutaneous emphysema, initial encounter
--- NOTE | 2018-06-03 14:26 | P.PNCV ---
- Note Subjective/Hospital Course: worsening sub q emphysema despite pig tail cath chest tube plan for large bore chest tube in OR in am discussed with pt and family 05/29/18 Subcutaneous emphysema subjectively improved as he can now open one eye. Good appetite 05/30/18 Continued improvement in subcutaneous emphysema. Needs PT/OT - deconditioned 05/31 OOB to chair, chest tube x 2 now to 10cm suction, no air leak subq emphysema improving on nasal cannula 06/01 no air leak noted in chest tube x [address] pig tail cath to water seal leave right lateral chest tube to 10cm suction, still has significant subq emphysema / however improving slowly now can open left eye, right eye still closed ( pt has macular degeneration right eye ) eval for removal of pig tail cath in am 06/02 CXR noted, no PTX. subq emphysema improving daily right pigtail cath removed, right upper chest right lateral chest wall chest tube no clamped f/u CXR film in am , if any worsening subq emphysema will unclamp and place back to suction 06/03 NO ptx on CXR right lateral chest tube removed without difficulty leave current dressing in place x 48 hrs, then ok to remove and shower f/u CXR in am Objective: Vital Signs - 24 hr 06/02/18 15:00 06/02/18 16:00 06/02/18 17:00 Temperature 97.7 F Pulse Rate 67 68 62 Respiratory Rate 20 Blood Pressure 126/60 Pulse Oximetry 96 06/02/18 18:00 06/02/18 19:00 06/02/18 19:40 Temperature 98 F Pulse Rate 74 65 69 Respiratory Rate 18 18 Blood Pressure 112/53 L Pulse Oximetry 97 97 06/02/18 20:00 06/02/18 21:00 06/02/18 22:00 Temperature Pulse Rate 74 70 68 Respiratory Rate Blood Pressure Pulse Oximetry 06/02/18 23:00 06/03/18 00:00 06/03/18 00:34 Temperature 98.1 F Pulse Rate 60 58 L 56 L Respiratory Rate 20 20 Blood Pressure 110/58 L Pulse Oximetry 97 06/03/18 01:00 06/03/18 02:00 06/03/18 03:00 Temperature 98 F Pulse Rate 54 L 60 59 L Respiratory Rate 20 Blood Pressure 111/57 L Pulse Oximetry 98 06/03/18 04:00 06/03/18 05:00 06/03/18 05:07 Temperature Pulse Rate 57 L 62 54 L Respiratory Rate 20 Blood Pressure Pulse Oximetry 06/03/18 06:00 06/03/18 07:00 06/03/18 08:00 Temperature 98.2 F Pulse Rate 66 63 63 Respiratory Rate 18 Blood Pressure 105/55 L Pulse Oximetry 06/03/18 08:29 06/03/18 11:00 Temperature 98.2 F Pulse Rate 72 6 L Respiratory Rate 19 18 Blood Pressure 98/54 L Pulse Oximetry 95 96 GENERAL: A&O x 3 SKIN: Warm and dry. subq emphysema improving to face chest and arms HEAD: Normocephalic. EYES: No scleral icterus. No injection or drainage. NECK: Supple, trachea midline. No JVD or lymphadenopathy. CARDIOVASCULAR: Regular rate and rhythm without murmurs, gallops, or rubs. RESPIRATORY: Breath sounds equal bilaterally. No accessory muscle use. GASTROINTESTINAL: Abdomen soft, non-tender, nondistended. MUSCULOSKELETAL: No cyanosis, or edema. BACK: Nontender without obvious deformity. No CVA tenderness. Labs: Laboratory Results - last 12 hr 06/03/18 06/03/18 07:48 12:10 POC Glucose 213 H 373 H Result Diagrams: 05/31/18 04:47 05/31/18 04:47 - Plan (1) COPD (chronic obstructive pulmonary disease) Plan: nebs steroids (2) Subcutaneous emphysema Plan: right upper chest wall chest tube dc without difficulty right lateral chest tube now clamped f/u CXR in am, eval for removal (4) Pneumothorax Plan: chest tubes to 10 cm suction right anterior chest tube to water seal then eval to remove pig tail cath first / then large bore (1) COPD (chronic obstructive pulmonary disease) Qualifiers: COPD type: COPD with acute exacerbation Qualified Code(s): J44.1 - Chronic obstructive pulmonary disease with (acute) exacerbation (2) Subcutaneous emphysema Qualifiers: Encounter type: initial encounter Qualified Code(s): T79.7XXA - Traumatic subcutaneous emphysema, initial encounter (4) Pneumothorax Qualifiers: Pneumothorax type: traumatic Encounter type: sequela Qualified Code(s): S27.0XXS - Traumatic pneumothorax, sequela
[2018-06-03] MEDS: Nystatin/Diphenhydramine/Lidocaine Mouthwash (Adult) 120 ML Botttle SWISH-SWAL SCH ×3 (17:34→21:07)
--- NOTE | 2018-06-04 05:17 | XR ---
EXAM DATE: 06/04/2018 4:53 AM EDT AGE/SEX: 83 years / Male INDICATIONS: Chest tube removal, rule out pneumothorax. CLINICAL DATA: This is the patient's subsequent encounter. Patient reports that signs and symptoms h ave been present for 2 weeks and indicates a pain score of 0/10. MEDICAL/SURGICAL HISTORY: . Chronic obstructive pulmonary disease. Emphysema. Myocardial infar ction. None. COMPARISON: [facility] [place], CHEST 1V SINGLE AP, 06/03/2018. . FINDINGS: A single AP view of the chest demonstrates the lungs to be symmetrically aerated without evidence of mass, infiltrate or effusion. Interval right-sided chest tube removal. No pneumothorax. Extensive sub cutaneous air. The cardiomediastinal contours are unremarkable. Osseous structures are intact. CONCLUSION: No pneumothorax. Electronically signed by: Javier Alfonso MD 06/04/2018 5:16 AM EDT
[2018-06-04] MEDS: predniSONE 5 MG Tablet PO SCH (09:00)
[2018-06-04] MEDS: Insulin NovoLOG Aspart Correctional Sugar Inj SQ SCH ×2 (09:08→12:07)
[2018-06-04] MEDS: Nystatin/Diphenhydramine/Lidocaine Mouthwash (Adult) 120 ML Botttle SWISH-SWAL SCH ×2 (09:08→12:07)
[2018-06-04] MEDS: Metoprolol Tartrate 25 MG Tablet PO SCH (09:09)
[2018-06-04] MEDS: amLODIPine 10 MG Tablet PO SCH (09:10)
[2018-06-04] MEDS: Multivitamin/Minerals Therapeutic Tablet PO SCH (09:10)
[2018-06-04] MEDS: Senna/Docusate Sodium 8.6/50 MG Tablet PO SCH (09:10)
[2018-06-04] MEDS: Budesonide-Formoterol 160/4.5 MCG 6 GM Inhaler INH SCH (09:57)
--- NOTE | 2018-06-04 11:13 | P.PN ---
Subjective Interval history: Follow-up pneumothorax/emphysema May 29, 2018-patient seen and examined, no acute event overnight, still short of breath. Dr. Crane at bedside May 30, 2018-patient seen and examined, still complaining of facial puffiness with some mild shortness of breath. May 31, 2018-patient seen and examined, reports some improvement of facial puffiness and denies any significant shortness of breath. BP labile. June 01, 2018-patient seen and examined, on p.o. prednisone. No acute event overnight. No significant shortness of breath. Chest tubes still in place. June 02, 2018-patient seen and examined; state he is breathing better. Facial swelling improving. No acute event overnight June 03, 2018-patient seen and examined, breathing better. Only has one chest tube now .prednisone down to 50 mg daily. June 04, 2018-patient seen and examined, all chest tubes were removed. No complaint this morning. States he only wants to go home. Physical Exam Vital signs: Vital Signs 06/03/18 12:00 06/03/18 15:00 06/03/18 16:00 Temperature 98.2 F Pulse Rate 67 69 68 Respiratory Rate 18 Blood Pressure 110/55 L Pulse Oximetry 95 06/03/18 17:00 06/03/18 18:00 06/03/18 19:00 Temperature 97.9 F Pulse Rate 66 68 74 Respiratory Rate 18 Blood Pressure 107/55 L Pulse Oximetry 96 06/03/18 20:00 06/03/18 21:00 06/03/18 22:00 Temperature Pulse Rate 65 64 64 Respiratory Rate Blood Pressure Pulse Oximetry 06/03/18 23:00 06/04/18 00:00 06/04/18 01:00 Temperature 97.3 F L Pulse Rate 61 62 69 Respiratory Rate 16 Blood Pressure 143/64 H Pulse Oximetry 97 06/04/18 02:00 06/04/18 03:00 06/04/18 04:00 Temperature 98.0 F Pulse Rate 65 59 L 60 Respiratory Rate 16 Blood Pressure 147/68 H Pulse Oximetry 97 06/04/18 05:00 06/04/18 06:00 06/04/18 07:00 Temperature 98.1 F Pulse Rate 67 58 L 56 L Respiratory Rate Blood Pressure 135/64 Pulse Oximetry 97 06/04/18 08:48 06/04/18 10:00 Temperature Pulse Rate 62 Respiratory Rate Blood Pressure Pulse Oximetry 98 Intake & Output 06/03/18 06/04/18 06/04/18 18:59 06:59 18:59 Intake Total 740 / 740 480 / 480 Output Total 850 / 850 900 / 900 Balance -110 / -110 -420 / -420 Intake: Oral 740 / 740 480 / 480 Output: Urine 850 / 850 900 / 900 Other: Date of Last Bowel Movement 05/31/18 06/03/18 06/03/18 # Bowel Movements 0 0 Narrative: GENERAL Awake and NAD SKIN: Warm and dry. HEAD: Normocephalic. EYES: No scleral icterus. NECK: Supple, trachea midline. No JVD or lymphadenopathy. CARDIOVASCULAR: Regular rate and rhythm without murmurs, gallops, or rubs. RESPIRATORY: Breath sounds Distant bilaterally.Occ Wheeze. GASTROINTESTINAL: Abdomen soft, non-tender, nondistended. BS + MUSCULOSKELETAL: No cyanosis, no edema. BACK: Nontender without obvious deformity. NEURO: awake, oriented x 3, follows commands. no gross deficit. Results - Labs CBC & Chem 7: 05/31/18 04:47 05/31/18 04:47 Laboratory Results - last 24 hr 06/03/18 06/03/18 06/03/18 12:10 17:02 20:32 POC Glucose 373 H 225 H 305 H 06/04/18 07:51 POC Glucose 158 H - Imaging Impressions Chest X-Ray 06/04/18 06:00 CONCLUSION: No pneumothorax. - Procedures Chest tube placement Assessment and Plan - Assessment (1) Syncope Code(s): R55 - Syncope and collapse Status: Acute (2) PNA (pneumonia) Code(s): J18.9 - Pneumonia, unspecified organism Status: Acute (3) COPD (chronic obstructive pulmonary disease) Code(s): J44.9 - Chronic obstructive pulmonary disease, unspecified Status: Acute (4) Pneumothorax Code(s): J93.9 - Pneumothorax, unspecified Status: Acute (5) Subcutaneous emphysema Code(s): T79.7XXA - Traumatic subcutaneous emphysema, initial encounter Status : Acute - Plan 83-year-old man with Community-acquired pneumonia; failed outpatient therapy-resolved -s/p cefepime. -continue with DuoNeb as needed Right chest wall contusion secondary to syncope, found with right rib fractures 9 through 11, traumatic right pneumothorax and subq emphysema -appreciate pulmonary input -Status post chest tube placement 05/25/2018 -continue with oxygen. - Repeat chest x-ray 06/03 with Persistent chest wall emphysema but no perceptible pneumothorax -Appreciate input from cardiothoracic surgery. All chest tubes removed - Continue with prednisone 5 mg daily, DuoNeb Syncope: She has been stable since admission CT Head w/ no acute findings. -serial cardiac enzymes negative -PT for eval/tx. -V/Q negative for PE COPD: Chronic Respiratory Failure w/ Acute Exacerbation. -DuoNeb scheduled and as needed, -s/p Solu-Medrol 40mg Q8H, currently on prednisone 15 mg twice daily -DuoNeb, Symbicort. -Monitor O2. Hypertension -On [id number] daily -Clonidine PRN -Lopressor 12.5 mg p.o. twice daily. PT to treat and eval Discharge Planning: Discharge home today (3) COPD (chronic obstructive pulmonary disease) Qualifiers: Qualified Code(s): J44.1 - Chronic obstructive pulmonary disease with (acute) exacerbation (4) Pneumothorax Qualifiers: Qualified Code(s): S27.0XXS - Traumatic pneumothorax, sequela (5) Subcutaneous emphysema Qualifiers: Qualified Code(s): T79.7XXA - Traumatic subcutaneous emphysema, initial encounter
--- NOTE | 2018-06-04 11:15 | P.PNCV ---
- Note Subjective/Hospital Course: worsening sub q emphysema despite pig tail cath chest tube plan for large bore chest tube in OR in am discussed with pt and family 05/29/18 Subcutaneous emphysema subjectively improved as he can now open one eye. Good appetite 05/30/18 Continued improvement in subcutaneous emphysema. Needs PT/OT - deconditioned 05/31 OOB to chair, chest tube x 2 now to 10cm suction, no air leak subq emphysema improving on nasal cannula 06/01 no air leak noted in chest tube x [address] pig tail cath to water seal leave right lateral chest tube to 10cm suction, still has significant subq emphysema / however improving slowly now can open left eye, right eye still closed ( pt has macular degeneration right eye ) eval for removal of pig tail cath in am 06/02 CXR noted, no PTX. subq emphysema improving daily right pigtail cath removed, right upper chest right lateral chest wall chest tube no clamped f/u CXR film in am , if any worsening subq emphysema will unclamp and place back to suction 06/03 NO ptx on CXR right lateral chest tube removed without difficulty leave current dressing in place x 48 hrs, then ok to remove and shower f/u CXR in am 06/04 chest xray stable subq emphysema improving daily stable for dc from CVS standpoint Objective: Vital Signs - 24 hr 06/03/18 12:00 06/03/18 15:00 06/03/18 16:00 Temperature 98.2 F Pulse Rate 67 69 68 Respiratory Rate 18 Blood Pressure 110/55 L Pulse Oximetry 95 06/03/18 17:00 06/03/18 18:00 06/03/18 19:00 Temperature 97.9 F Pulse Rate 66 68 74 Respiratory Rate 18 Blood Pressure 107/55 L Pulse Oximetry 96 06/03/18 20:00 06/03/18 21:00 06/03/18 22:00 Temperature Pulse Rate 65 64 64 Respiratory Rate Blood Pressure Pulse Oximetry 06/03/18 23:00 06/04/18 00:00 06/04/18 01:00 Temperature 97.3 F L Pulse Rate 61 62 69 Respiratory Rate 16 Blood Pressure 143/64 H Pulse Oximetry 97 06/04/18 02:00 06/04/18 03:00 06/04/18 04:00 Temperature 98.0 F Pulse Rate 65 59 L 60 Respiratory Rate 16 Blood Pressure 147/68 H Pulse Oximetry 97 06/04/18 05:00 06/04/18 06:00 06/04/18 07:00 Temperature 98.1 F Pulse Rate 67 58 L 56 L Respiratory Rate Blood Pressure 135/64 Pulse Oximetry 97 06/04/18 08:48 06/04/18 10:00 Temperature Pulse Rate 62 Respiratory Rate Blood Pressure Pulse Oximetry 98 GENERAL: A&O x 3 SKIN: Warm and dry. dressing in place right lateral chest wall / subq emphysema improving HEAD: Normocephalic. EYES: No scleral icterus. No injection or drainage. NECK: Supple, trachea midline. No JVD or lymphadenopathy. CARDIOVASCULAR: Regular rate and rhythm without murmurs, gallops, or rubs. RESPIRATORY: Breath sounds equal bilaterally. No accessory muscle use. GASTROINTESTINAL: Abdomen soft, non-tender, nondistended. MUSCULOSKELETAL: No cyanosis, or edema. BACK: Nontender without obvious deformity. No CVA tenderness. Labs: Laboratory Results - last 12 hr 06/04/18 07:51 POC Glucose 158 H Result Diagrams: 05/31/18 04:47 05/31/18 04:47 - Plan (1) COPD (chronic obstructive pulmonary disease) Plan: nebs steroids (2) Subcutaneous emphysema Plan: CXR stable post removal stable for dc from CVS standpoint (4) Pneumothorax Plan: chest tubes to 10 cm suction right anterior chest tube to water seal then eval to remove pig tail cath first / then large bore (1) COPD (chronic obstructive pulmonary disease) Qualifiers: COPD type: COPD with acute exacerbation Qualified Code(s): J44.1 - Chronic obstructive pulmonary disease with (acute) exacerbation (2) Subcutaneous emphysema Qualifiers: Encounter type: initial encounter Qualified Code(s): T79.7XXA - Traumatic subcutaneous emphysema, initial encounter (4) Pneumothorax Qualifiers: Pneumothorax type: traumatic Encounter type: sequela Qualified Code(s): S27.0XXS - Traumatic pneumothorax, sequela
--- NOTE | 2018-06-04 11:19 | P.DS ---
Date of admission: 05/20/18 20:46 Primary care physician: Nyasia Best MD Anticipated date of discharge: 06/04/18 Brief History from admission: This is an 83-year-old male with a PMH of HTN, COPD, CHF (Unknown EF) and Skin CA who was brought to the ER by EMS after syncopal event. states pt hasn' t been feeling well over the last few days and has been on Z-pack by PCP. Today had syncopal event while walking to the bathroom. Reports dizziness prior to event and SOB following. No chest pain. states she's been "getting over the flu", however pt denies fever or chills. On arrival, P1 53/65 , HR 73, O2 sat 97% on 2L NC, Afebrile. WBC 13.3. Creatinine 1.47. Troponin negative. CT Head with stable chronic changes, no acute findings. CXR with left basilar atelectasis/infiltrate. V/Q pending. Follows w/ Dr. Foss as outpatient. DS: Diagnosis - Discharge Diagnosis (1) Syncope Status: Acute (2) PNA (pneumonia) Status: Acute (3) COPD (chronic obstructive pulmonary disease) Status: Acute (4) Pneumothorax Status: Acute (5) Subcutaneous emphysema Status: Acute DS: Medications - Discharge Medications Prescriptions: albuterol sulfate [Ventolin HFA] 2 puff INHALATION Q4-6H PRN #1 g PRN Reason: Shortness Of Breath amlodipine [Norvasc] 10 mg PO DAILY #30 tab budesonide-formoterol [Symbicort] 2 puff INH BID #1 g clonidine HCl [Catapres] 0.1 mg PO Q6H #90 tab hydrochlorothiazide 12.5 mg PO DAILY #30 cap ipratropium bromide [Atrovent HFA] 2 puff INHALATION Q6H #1 g metoprolol tartrate 25 mg PO BID #60 tab prednisone 15 mg PO DAILY #7 tab DS: Summary Hospital Course: While in hospital, patient was treated for: Community-acquired pneumonia; failed outpatient therapy-resolved -s/p cefepime. -continue with DuoNeb as needed Right chest wall contusion secondary to syncope, found with right rib fractures 9 through 11, traumatic right pneumothorax and subq emphysema -appreciate pulmonary input -Status post chest tube placement 05/25/2018 -continue with oxygen. - Repeat chest x-ray 06/03 with Persistent chest wall emphysema but no perceptible pneumothorax -Appreciate input from cardiothoracic surgery. All chest tubes removed - Continue with prednisone 5 mg daily, DuoNeb Syncope: She has been stable since admission CT Head w/ no acute findings. -serial cardiac enzymes negative -PT for eval/tx. -V/Q negative for PE COPD: Chronic Respiratory Failure w/ Acute Exacerbation. -DuoNeb scheduled and as needed, -s/p Solu-Medrol 40mg Q8H, currently on prednisone 15 mg twice daily -DuoNeb, Symbicort. -Monitor O2. Hypertension -On [id number] daily -Clonidine PRN -Lopressor 12.5 mg p.o. twice daily. PT to treat and eval - Time Spent with Patient Total time spent providing and/or coordinating discharge services: Greater than 30 minutes - Quality: VTE Deep Vein Thrombosis/Pulmonary Embolism Present on Admission: No Exam Vital signs: Vital Signs 06/03/18 12:00 06/03/18 15:00 06/03/18 16:00 Temperature 98.2 F Pulse Rate 67 69 68 Respiratory Rate 18 Blood Pressure 110/55 L Pulse Oximetry 95 06/03/18 17:00 06/03/18 18:00 06/03/18 19:00 Temperature 97.9 F Pulse Rate 66 68 74 Respiratory Rate 18 Blood Pressure 107/55 L Pulse Oximetry 96 06/03/18 20:00 06/03/18 21:00 06/03/18 22:00 Temperature Pulse Rate 65 64 64 Respiratory Rate Blood Pressure Pulse Oximetry 06/03/18 23:00 06/04/18 00:00 06/04/18 01:00 Temperature 97.3 F L Pulse Rate 61 62 69 Respiratory Rate 16 Blood Pressure 143/64 H Pulse Oximetry 97 06/04/18 02:00 06/04/18 03:00 06/04/18 04:00 Temperature 98.0 F Pulse Rate 65 59 L 60 Respiratory Rate 16 Blood Pressure 147/68 H Pulse Oximetry 97 06/04/18 05:00 06/04/18 06:00 06/04/18 07:00 Temperature 98.1 F Pulse Rate 67 58 L 56 L Respiratory Rate Blood Pressure 135/64 Pulse Oximetry 97 06/04/18 08:48 06/04/18 10:00 Temperature Pulse Rate 62 Respiratory Rate Blood Pressure Pulse Oximetry 98 Intake & Output 06/03/18 06/04/18 06/04/18 18:59 06:59 18:59 Intake Total 740 / 740 480 / 480 Output Total 850 / 850 900 / 900 Balance -110 / -110 -420 / -420 Intake: Oral 740 / 740 480 / 480 Output: Urine 850 / 850 900 / 900 Other: Date of Last Bowel Movement 05/31/18 06/03/18 06/03/18 # Bowel Movements 0 0 Narrative: GENERAL: NAD SKIN: Warm and dry. HEAD: Normocephalic. EYES: No scleral icterus. No injection or drainage. NECK: Supple, trachea midline. No JVD or lymphadenopathy. CARDIOVASCULAR: Regular rate and rhythm without murmurs, gallops, or rubs. RESPIRATORY: Breath sounds equal bilaterally. No accessory muscle use. GASTROINTESTINAL: Abdomen soft, non-tender, nondistended. MUSCULOSKELETAL: No cyanosis, or edema. BACK: Nontender without obvious deformity. No CVA tenderness. Results Procedures completed during hospitalization: Chest tube placement Labs on day of discharge: Labs from last 24 hours 06/04/18 06/03/18 06/03/18 07:51 20:32 17:02 POC Glucose 158 H 305 H 225 H 06/03/18 12:10 POC Glucose 373 H - Impressions ITS Impressions Head CT 05/20/18 19:09 CONCLUSION: 1. Stable chronic changes with symmetric cortical atrophy and moderately severe periventricular and deep white matter tracts small vessel ischemic demyelination. 2. Nothing acute. Pulmonary Perfusion Imaging 05/20/18 19:56 CONCLUSION: 1. Mild central trapping on the ventilatory images could represent some degree of COPD. 2. Otherwise, low probability scan for pulmonary embolus. Chest Tube Insertion 05/25/18 00:00 CONCLUSION: Uncomplicated fluoroscopic guided pigtail chest tube placement as above for pneumothorax. Chest CT 05/27/18 00:00 CONCLUSION: 1. Chest drainage catheter at the right apex. No apical pneumothorax seen. 2. Small right basilar pneumothorax, smaller than on prior. 3. New tiny left pneumothorax in the costophrenic angle. 4. Stable severity to the extensive subcutaneous emphysema and pneumomediastinum. Chest X-Ray 06/04/18 06:00 CONCLUSION: No pneumothorax. Discharge Plan - Discharge Disposition Patient Disposition: Disch W/Home Health Service - Discharge Condition Condition: Stable - Discharge Order Discharge Orders: Discharge Order (Routine); Ordered 06/04/18 Ordered By: Edilberto Singer - Discharge Details Anticipated Discharge Date: 05/20/18 - Physicians Team Primary Care Provider: Nyasia Best Attending Provider: Edilberto Singer Other Providers: Marina Gray ; Lizz Anthony MD ; Mook Juares MD
== END 2018-06-04 13:28 | disposition home health service (06) ==
LOC: NEPE 18:58 → OBSVTOIN 20:46 → NEDA 20:46 → INTOOBSV 20:52 → NEDA 22:44 → N04 22:48 → N03 05-26 20:47 → HCVI 05-28 13:56 → HCPC 05-29 19:00
PROVIDERS: ADMIT Hospitalist; ATTEND Hospitalist